=== PATIENT | female | born 1960 | race Caucasian/White ===

== ENCOUNTER 2017-12-19 10:33 | Inpatient (IN) | payer MEDICAID, OTHER ==
[2017-12-19 10:39] VITALS: BMI 24.7
--- NOTE | 2017-12-19 11:05 | C.PDOC ---
Time Seen by Provider: 12/19/17 11:01 Chief Complaint (Nursing): Chest Pain Past Medical History Vital Signs: Last Vital Signs Temp 97.8 F 12/19/17 10:39 Pulse 226 H 12/19/17 10:57 Resp 11 L 12/19/17 10:57 BP 82/40 L 12/19/17 10:57 Pulse Ox 100 12/19/17 10:57 - Medical History PMH: HTN, Migraine Family History: States: Unknown Family Hx - Social History Hx Tobacco Use: No Hx Alcohol Use: No Hx Substance Use: No - Immunization History Hx Tetanus Toxoid Vaccination: No Hx Influenza Vaccination: No Hx Pneumococcal Vaccination: No ED Course And Treatment O2 Sat by Pulse Oximetry: 100 Disposition - Disposition
[2017-12-19 11:06] LABS: BASO # 0.1 K/uL (0.0-0.2); BASO % 0.5 % (0.0-2.0); EOS # 0.1 K/uL (0.0-0.7); EOS % 0.9 % (0.0-4.0); HEMOGLOBIN 14.1 g/dL (11.0-16.0); LYMPH # 5.7 K/uL (1.0-4.3); LYMPH % 51.4 % (20.0-40.0); MEAN CELL VOLUME 85.8 fL (81.0-99.0); MEAN CORPUSCULAR HEMOGLOBIN 29.2 pg (27.0-31.0); MEAN CORPUSCULAR HGB CONC 34.1 g/dL (33.0-37.0); MEAN PLATELET VOLUME 8.1 fL (7.2-11.7); MONO # 0.7 K/uL (0.0-0.8); MONO % 6.7 % (0.0-10.0); NEUT # 4.5 K/uL (1.8-7.0); NEUT % 40.5 % (50.0-75.0); RBC 4.83 Mil/uL (3.80-5.20); WHITE BLOOD COUNT 11.2 K/uL (4.8-10.8)
[2017-12-19 11:19] LABS: INR 1.1; PROTHROMBIN TIME 11.6 SECONDS (9.7-12.2)
[2017-12-19 11:21] LABS: ALB/GLOB RATIO 1.3 (1.0-2.1); ALBUMIN 4.3 g/dL (3.5-5.0); ALT/SGPT 33 U/L (9-52); AST/SGOT 27 U/L (14-36); BLOOD UREA NITROGEN 12 mg/dL (7-17); CALCIUM 9.2 mg/dl (8.6-10.4); GFR AFRICAN-AMERICAN > 60; GFR NON-AFRICAN AMERICAN > 60
--- NOTE | 2017-12-19 11:58 | C.PDOC ---
History Of Present Illness 57 y/o F c PMHx HTN p/w chest pain, palpitations, and shortness of breath from just prior to arrival. Patient was in [facility] when symptoms began. Denies previous episodes. Denies fever, chills, vomiting, injury. Full HPI/ROS unobtainable due to acuity of patient's condition. Time Seen by Provider: 12/19/17 11:01 Chief Complaint (Nursing): Chest Pain Past Medical History Vital Signs: Last Vital Signs Temp 97.8 F 12/19/17 10:39 Pulse 67 12/19/17 11:22 Resp 14 12/19/17 11:22 BP 93/68 L 12/19/17 11:22 Pulse Ox 100 12/19/17 11:22 - Medical History PMH: HTN, Migraine Family History: States: Unknown Family Hx - Social History Hx Tobacco Use: No Hx Alcohol Use: No Hx Substance Use: No - Immunization History Hx Tetanus Toxoid Vaccination: No Hx Influenza Vaccination: No Hx Pneumococcal Vaccination: No Review Of Systems Except As Marked, All Systems Reviewed And Found Negative. Constitutional: Negative for: Fever Gastrointestinal: Negative for: Vomiting Physical Exam - Physical Exam Additional Physical Exam Comments: Gen: Appears anxious Head: NC/AT Eyes: PERRL ENT: MMM Neck: Supple Chest: No tenderness CV: Tachycardic Lungs: CTA b/l Abd: Soft, NT Back: No CVA tenderness Extremities: No edema Skin: Diaphoretic Neuro: Alert, oriented x 3 ED Course And Treatment - Laboratory Results Result Diagrams: 12/19/17 11:00 12/19/17 11:00 O2 Sat by Pulse Oximetry: 100 Critical Care Time - Critical Care Note Total Time (in mins): 60 Comments: Patient required my immediate attention upon arrival due to critical nature of condition, my constant presence at bedside, multiple specialist consultations, and complex decision making. Documented critical care: time excludes all time spent performing seperately billable procedures. Medical Decision Making Medical Decision Making: Initial EKG shows Rate 240, RBBB morphology but with narrow R waves. Adenosine administered with 2 second break, reverted to SVT and patient appeared more diaphoretic, drowsy, BP hypotension. Synchronized cardioversion performed at 120 J, after 200 mcg Fentanyl. Patient immediately converted to sinus rhythm with HR 40s, continues to have RBBB morphology without over ST elevations. HR improved to 60s to 70s, ST depressions laterally, RBBB morphology but with QRS < 120. Patient awake, alert, oriented x 3. Dr. Moreno called, came to see patient at bedside and will have echo performed today, stress test tomorrow. Dr. Carbajal accepts patient to ICU. Dr. Claribel Irizarry accepts patient to his service. Disposition Discussed With : Alexander Moreno Doctor Will See Patient In The: ED - Disposition Disposition: HOSPITALIZED Disposition Time: 12:01 Condition: GUARDED Forms: [facility] (Stateless) - Clinical Impression Clinical Impression: SVT (supraventricular tachycardia)
[2017-12-19] MEDS ORDERED: Sodium Chloride 0.9% 1,000 ML IV ONE (12:20)
--- NOTE | 2017-12-19 13:04 | RAD ---
Date of service: 12/19/2017 PROCEDURE: CHEST RADIOGRAPH, 1 VIEW HISTORY: chest pain COMPARISON: Frontal chest radiograph 12/31/2010. FINDINGS: LUNGS: No acute airspace disease bilaterally. PLEURA: No pneumothorax or pleural fluid seen. CARDIOVASCULAR: Stable cardiomediastinal silhouette. External cardiac pacer identified. OSSEOUS STRUCTURES: No significant abnormalities. VISUALIZED UPPER ABDOMEN: Normal. OTHER FINDINGS: None. IMPRESSION: No definite interval acute cardiopulmonary disease appreciated. External pacer identified.
[2017-12-19 14:07] LABS: ABG ALLEN TEST POS; ARTERIAL BLOOD GAS O2 SAT 100.3 % (95-98); ARTERIAL BLOOD GAS PCO2 43 mm/Hg (35-45); ARTERIAL BLOOD GAS PO2 108 mm/Hg (80-100); ARTERIAL BLOOD GAS TCO2 22.5 mmol/L (22-28)
--- NOTE | 2017-12-19 14:55 | CP.PCM.CON ---
<Betty Villanueva P - Last Filed: 12/19/17 19:05> History of Present Illness - History of Present Illness History of Present Illness: PGY-1 critical care consult note. 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 Patient presented to ED for chest pain, palpitations and shortness of breath that began while at [facility]. Patient noted to be in SVT in ED refractory to adenosine. Synchronized cardioversion was performed at 120 J after which patient converted to sinus rhythm. ICU consulted for cardiovascular monitoring. Patient denies current chest pain, shortness of breath, nausea, vomiting, abdominal pain, diarrhea, dizziness, focal weakness. PMD: Dr. Mitra Johnson PMHx: HTN, CVA (1997) PSHx: none Meds: Losartan/HCTZ 50/12.5 Allergies: NKDA Social: denies drugs, tobacco, alcohol. Family history: mother: HTN, hypercholesterolemia, father-, cancer. siblings: HTN, hypercholesterolemia. Proxy: Son, Matias Scanlon [phone] code status: Full code Review of Systems - Review of Systems All systems: reviewed and no additional remarkable complaints except (as per HPI ) Past Patient History - Past Social History Smoking Status: Never Smoked - CARDIAC Hx Hypertension: Yes - NEUROLOGICAL Hx Migraine: Yes - MUSCULOSKELETAL/RHEUMATOLOGICAL Hx Falls: No - PSYCHIATRIC Hx Substance Use: No - SURGICAL HISTORY Hx Surgeries: No Meds Allergies/Adverse Reactions: Allergies Allergy/AdvReac Type Severity Reaction Status Date / Time No Known Allergies Allergy Verified 12/19/17 10:38 - Medications Medications: Current Medications Aspirin (Aspirin Chewable) 81 mg PO DAILY [facility] Last Admin: 12/19/17 14:26 Dose: 81 mg Famotidine (Pepcid) 20 mg PO DAILY [facility] Heparin Sodium (Porcine) (Heparin) 5,000 units SC Q8 [facility] Last Admin: 12/19/17 13:12 Dose: 5,000 units Pneumococcal Polyvalent Vaccine (Pneumovax 23 Vaccine) 0.5 ml IM .ONCE ONE Stop: 12/22/17 10:01 Physical Exam - Head Exam Head Exam: ATRAUMATIC, NORMOCEPHALIC - Eye Exam Eye Exam: EOMI, PERRL - ENT Exam ENT Exam: Mucous Membranes Moist - Neck Exam Neck exam: Positive for: Full Rom - Respiratory Exam Respiratory Exam: Clear to Auscultation Bilateral. absent: Rales, Rhonchi, Wheezes - Cardiovascular Exam Cardiovascular Exam: REGULAR RHYTHM, +S1, +S2 - GI/Abdominal Exam GI & Abdominal Exam: Normal Bowel Sounds, Soft. absent: Tenderness - Extremities Exam Extremities exam: Positive for: normal inspection. Negative for: calf tenderness, pedal edema - Neurological Exam Neurological exam: Alert, CN II-XII Intact (L sided facial droop, chronic. otherwise normal), Oriented x3 - Psychiatric Exam Psychiatric exam: Normal Affect, Normal Mood - Skin Skin Exam: Dry, Normal Color, Warm Results - Vital Signs Recent Vital Signs: Last Vital Signs Temp 97.8 F 12/19/17 10:39 Pulse 74 12/19/17 11:30 Resp 14 12/19/17 11:30 BP 101/57 L 12/19/17 11:30 Pulse Ox 100 12/19/17 12:58 - Labs Result Diagrams: 12/19/17 11:00 12/19/17 11:00 Labs: Laboratory Results - last 24 hr 12/19/17 12/19/17 12/19/17 10:45 11:00 11:00 WBC 11.2 H RBC 4.83 Hgb 14.1 Hct 41.4 MCV 85.8 MCH 29.2 MCHC 34.1 RDW 13.0 Plt Count 348 MPV 8.1 Neut % (Auto) 40.5 L Lymph % (Auto) 51.4 H [place] % (Auto) 6.7 Eos % (Auto) 0.9 Baso % (Auto) 0.5 Neut # (Auto) 4.5 Lymph # (Auto) 5.7 H [place] # (Auto) 0.7 Eos # (Auto) 0.1 Baso # (Auto) 0.1 PT 11.6 INR 1.1 APTT 36 H D-Dimer, Quantitative Puncture Site pCO2 pO2 HCO3 ABG pH ABG Total CO2 ABG O2 Saturation ABG Base Excess Seferino Test ABG Potassium A-a O2 Difference Respiratory Index Glucose Lactate Liter Flow FiO2 Sodium Potassium Chloride Carbon Dioxide Anion Gap BUN Creatinine Est GFR ( Amer) Est GFR (Non-Af Amer) Random Glucose Hemoglobin A1c Calcium Total Bilirubin AST ALT Alkaline Phosphatase Troponin I Total Protein Albumin Globulin Albumin/Globulin Ratio Triglycerides Cholesterol LDL Cholesterol Direct HDL Cholesterol Free T4 TSH 3rd Generation Arterial Blood Potassium Blood Type O POSITIVE Antibody Screen Negative 12/19/17 12/19/17 12/19/17 11:00 12:24 12:24 WBC RBC Hgb Hct MCV MCH MCHC RDW Plt Count MPV Neut % (Auto) Lymph % (Auto) [place] % (Auto) Eos % (Auto) Baso % (Auto) Neut # (Auto) Lymph # (Auto) [place] # (Auto) Eos # (Auto) Baso # (Auto) PT INR APTT D-Dimer, Quantitative Puncture Site pCO2 pO2 HCO3 ABG pH ABG Total CO2 ABG O2 Saturation ABG Base Excess Seferino Test ABG Potassium A-a O2 Difference Respiratory Index Glucose Lactate Liter Flow FiO2 Sodium 144 Potassium 3.8 Chloride 108 H Carbon Dioxide 19 L Anion Gap 21 H BUN 12 Creatinine 0.7 Est GFR ( Amer) > 60 Est GFR (Non-Af Amer) > 60 Random Glucose 172 H Hemoglobin A1c 5.5 Calcium 9.2 Total Bilirubin 0.4 AST 27 ALT 33 Alkaline Phosphatase 141 H Troponin I < 0.0120 Total Protein 7.7 Albumin 4.3 Globulin 3.4 Albumin/Globulin Ratio 1.3 Triglycerides Cholesterol LDL Cholesterol Direct HDL Cholesterol Free T4 1.41 TSH 3rd Generation Arterial Blood Potassium Blood Type Antibody Screen 12/19/17 12/19/17 12/19/17 12:24 12:55 14:03 WBC RBC Hgb Hct MCV MCH MCHC RDW Plt Count MPV Neut % (Auto) Lymph % (Auto) [place] % (Auto) Eos % (Auto) Baso % (Auto) Neut # (Auto) Lymph # (Auto) [place] # (Auto) Eos # (Auto) Baso # (Auto) PT INR APTT D-Dimer, Quantitative < 200 Puncture Site Rra pCO2 43 pO2 108 H HCO3 21.0 ABG pH 7.30 L ABG Total CO2 22.5 ABG O2 Saturation 100.3 H ABG Base Excess -5.1 L Seferino Test Pos ABG Potassium 3.9 A-a O2 Difference 38.0 Respiratory Index 0.4 Glucose 134 H Lactate 2.0 Liter Flow 2.0 FiO2 28.0 Sodium 140.0 Potassium Chloride 112.0 H Carbon Dioxide Anion Gap BUN Creatinine Est GFR ( Amer) Est GFR (Non-Af Amer) Random Glucose Hemoglobin A1c Calcium Total Bilirubin AST ALT Alkaline Phosphatase Troponin I Total Protein Albumin Globulin Albumin/Globulin Ratio Triglycerides 164 H Cholesterol 184 LDL Cholesterol Direct 106 HDL Cholesterol 30 Free T4 TSH 3rd Generation 0.63 Arterial Blood Potassium 3.9 Blood Type Antibody Screen Assessment & Plan - Assessment and Plan (Free Text) Plan: Patient is a 57 year old female with PMHx of hypertension and 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 Patient presented to ED for chest pain, palpitations and shortness of breath that began while at [facility]. Patient noted to be in SVT in ED refractory to adenosine. Synchronized cardioversion was performed at 120 J after which patient converted to sinus rhythm. ICU consulted for cardiovascular monitoring. Neurological: Patient AAOx3 at baseline chronic L facial droop Cardiovascular: EKG: Initial EKG shows Rate 240, RBBB morphology but with narrow R waves; following cardioversion: NSR @61, R axis deviation, incomplete RBBB, prolonged Qtc at 497 Troponin: elevated likely secondary to synchronized cardioversion Echo f/u Start home med of Hyzaar ASA 81mg PO daily Dr. Moreno, cardiology, consulted. Help appreciated. Respiratory: CXR: no definite interval acute cardiopulmonary disease appreciated. External pacer identified. (see full report) Renal: BUN/Cr stable continue to monitor Infectious disease: WBC: 11.2 continue to monitor Hematology: H/H stable Gastrointestinal: Regular diet Endocrine: maintain euglycemia Prophylaxis: Heparin 5000u SC Q8H, Pepcid 20mg PO daily Case discussed with Dr. Carbajal. <Adolph Carbajal - Last Filed: 12/20/17 16:37> Meds - Medications Medications: Current Medications Aspirin (Aspirin Chewable) 81 mg PO DAILY [facility] Last Admin: 12/20/17 10:28 Dose: 81 mg Famotidine (Pepcid) 20 mg PO DAILY [facility] Last Admin: 12/20/17 10:29 Dose: 20 mg Heparin Sodium (Porcine) (Heparin) 5,000 units SC Q8 [facility] Last Admin: 12/20/17 13:50 Dose: 5,000 units Hydrochlorothiazide (Microzide) 12.5 mg PO DAILY [facility] Last Admin: 12/20/17 10:29 Dose: 12.5 mg Losartan Potassium (Cozaar) 50 mg PO DAILY [facility] Last Admin: 12/20/17 10:28 Dose: 50 mg Metoprolol Tartrate (Lopressor) 50 mg PO BIDCC [facility] Last Admin: 12/20/17 10:30 Dose: 50 mg Pneumococcal Polyvalent Vaccine (Pneumovax 23 Vaccine) 0.5 ml IM .ONCE ONE Stop: 12/22/17 10:01 Results - Vital Signs Recent Vital Signs: Last Vital Signs Temp 98.3 F 12/20/17 16:00 Pulse 61 12/20/17 16:00 Resp 16 12/20/17 16:00 BP 117/66 12/20/17 15:33 Pulse Ox 99 12/20/17 16:00 - Labs Result Diagrams: 12/20/17 06:25 12/20/17 06:25 Labs: Laboratory Results - last 24 hr 12/19/17 12/20/17 12/20/17 17:24 06:25 06:25 WBC 7.6 RBC 4.31 Hgb 12.7 Hct 37.0 MCV 85.8 MCH 29.5 MCHC 34.4 RDW 13.6 Plt Count 250 MPV 8.4 Neut % (Auto) 62.0 Lymph % (Auto) 29.5 [place] % (Auto) 7.4 Eos % (Auto) 0.8 Baso % (Auto) 0.3 Neut # (Auto) 4.7 Lymph # (Auto) 2.2 [place] # (Auto) 0.6 Eos # (Auto) 0.1 Baso # (Auto) 0.0 Sodium 140 Potassium 4.0 Chloride 108 H Carbon Dioxide 25 Anion Gap 11 BUN 15 Creatinine 0.7 Est GFR ( Amer) > 60 Est GFR (Non-Af Amer) > 60 Random Glucose 93 Calcium 8.7 Phosphorus 3.3 Magnesium 2.0 Total Bilirubin 0.5 AST 53 H D ALT 38 Alkaline Phosphatase 98 Total Creatine Kinase 145 H 154 H CK-MB (Mass) 9.62 H 10.9 H Troponin I 5.2600 H* 2.3400 H* Total Protein 6.8 Albumin 3.8 Globulin 3.0 Albumin/Globulin Ratio 1.3 Attending/Attestation - Attestation I have personally seen and examined this patient.: Yes I have fully participated in the care of the patient.: Yes I have reviewed all pertinent clinical information: Yes Notes (Text): 12/20/17 16:37 patient seen and examined status post cardioversion for supraventricular tachycardia Etiology unknown Echocardiogram Thyroid function tests Cardiology consult
--- NOTE | 2017-12-19 15:13 | CARD ---
APPROVED REPORT Date of service: 12/19/2017 EKG Measurement Heart [id number] <Conclusion> Normal sinus rhythm Right axis deviation Incomplete right bundle branch block Possible Right ventricular hypertrophy Lateral ST depression, consider subendocardial injury Prolonged QT Abnormal ECG
--- NOTE | 2017-12-19 15:14 | CARD ---
APPROVED REPORT Date of service: 12/19/2017 EKG Measurement Heart [id number] [place] 118P1 [id number] <Conclusion> Sinus bradycardia with frequent premature ventricular complexes Right axis deviation Incomplete right bundle branch block Possible Right ventricular hypertrophy Lateral ST depression, consider subendocardial injury Abnormal ECG
--- NOTE | 2017-12-19 15:15 | CARD ---
APPROVED REPORT Date of service: 12/19/2017 EKG Measurement Heart [id number] <Conclusion> Junctional bradycardia Right bundle branch block Abnormal ECG
--- NOTE | 2017-12-19 15:17 | CARD ---
APPROVED REPORT Date of service: 12/19/2017 EKG Measurement Heart [id number] <Conclusion> SVT Right bundle branch block Lateral ischemic ST changes Abnormal ECG
[2017-12-19 15:50] LABS: BARBITURATES, UR NEGATIVE (NEGATIVE); BENZODIAZEPINES, UR NEGATIVE (NEGATIVE); OPIATES, UR NEGATIVE (NEGATIVE); PHENCYCLIDINE, UR NEGATIVE (NEGATIVE)
[2017-12-19 17:59] LABS: CK-MB 9.62 ng/mL (0.0-3.38)
[2017-12-19 18:01] LABS: TROPONIN I 5.26 ng/mL (0.00-0.120)
--- NOTE | 2017-12-19 20:46 | CP.PCM.HP ---
History of Present Illness - History of Present Illness History of Present Illness: 57-year-old female with history of hypertension history of chest pain and palpitation while doing exercise was brought in with a heart rate of more than 240 received adenosine call the cardiology when patient was admitted Present on Admission - Present on Admission Any Indicators Present on Admission: No Past Patient History - Past Medical History & Family History Past Medical History?: Yes - Past Social History Smoking Status: Never Smoked - CARDIAC Hx Hypertension: Yes - PULMONARY Hx Respiratory Disorders: No - NEUROLOGICAL Hx Migraine: Yes - HEENT Hx HEENT Problems: No - RENAL Hx Chronic Kidney Disease: No - ENDOCRINE/METABOLIC Hx Endocrine Disorders: No - HEMATOLOGICAL/ONCOLOGICAL Hx Blood Disorders: No - INTEGUMENTARY Hx Dermatological Problems: No - MUSCULOSKELETAL/RHEUMATOLOGICAL Hx Falls: No - GASTROINTESTINAL Hx Gastrointestinal Disorders: No - GENITOURINARY/GYNECOLOGICAL Hx Genitourinary Disorders: No - PSYCHIATRIC Hx Substance Use: No - SURGICAL HISTORY Hx Surgeries: No - ANESTHESIA Hx Anesthesia: No Hx Anesthesia Reactions: No Hx Malignant Hyperthermia: No Has any member of the family had a problem w/ anesthesia?: No Meds Allergies/Adverse Reactions: Allergies Allergy/AdvReac Type Severity Reaction Status Date / Time No Known Allergies Allergy Verified 12/19/17 10:38 Physical Exam - Constitutional Appears: Well - Head Exam Head Exam: ATRAUMATIC, NORMAL INSPECTION, NORMOCEPHALIC - Eye Exam Eye Exam: EOMI, Normal appearance, PERRL Pupil Exam: NORMAL ACCOMODATION, PERRL - ENT Exam ENT Exam: Mucous Membranes Moist, Normal Exam - Neck Exam Neck exam: Positive for: Normal Inspection - Respiratory Exam Respiratory Exam: Decreased Breath Sounds - Cardiovascular Exam Cardiovascular Exam: REGULAR RHYTHM, +S1, +S2 - GI/Abdominal Exam GI & Abdominal Exam: Diminished Bowel Sounds, Soft - Rectal Exam Rectal Exam: Deferred Results - Vital Signs Recent Vital Signs: Last Vital Signs Temp 98 F 12/19/17 16:00 Pulse 75 12/19/17 19:10 Resp 16 12/19/17 19:10 BP 132/77 12/19/17 18:33 Pulse Ox 100 12/19/17 16:00 - Labs Result Diagrams: 12/21/17 06:21 12/21/17 06:21 Labs: Laboratory Results - last 24 hr 12/19/17 12/19/17 12/19/17 10:45 11:00 11:00 WBC 11.2 H RBC 4.83 Hgb 14.1 Hct 41.4 MCV 85.8 MCH 29.2 MCHC 34.1 RDW 13.0 Plt Count 348 MPV 8.1 Neut % (Auto) 40.5 L Lymph % (Auto) 51.4 H [place] % (Auto) 6.7 Eos % (Auto) 0.9 Baso % (Auto) 0.5 Neut # (Auto) 4.5 Lymph # (Auto) 5.7 H [place] # (Auto) 0.7 Eos # (Auto) 0.1 Baso # (Auto) 0.1 PT 11.6 INR 1.1 APTT 36 H D-Dimer, Quantitative Puncture Site pCO2 pO2 HCO3 ABG pH ABG Total CO2 ABG O2 Saturation ABG Base Excess Seferino Test ABG Potassium A-a O2 Difference Respiratory Index Glucose Lactate Liter Flow FiO2 Sodium Potassium Chloride Carbon Dioxide Anion Gap BUN Creatinine Est GFR ( Amer) Est GFR (Non-Af Amer) Random Glucose Hemoglobin A1c Calcium Total Bilirubin AST ALT Alkaline Phosphatase Total Creatine Kinase CK-MB (Mass) Troponin I Total Protein Albumin Globulin Albumin/Globulin Ratio Triglycerides Cholesterol LDL Cholesterol Direct HDL Cholesterol Free T4 TSH 3rd Generation Arterial Blood Potassium Urine Opiates Screen Urine Methadone Screen Ur Barbiturates Screen Ur Phencyclidine Scrn Ur Amphetamines Screen U Benzodiazepines Scrn U Oth Cocaine Metabols U Cannabinoids Screen Blood Type O POSITIVE Antibody Screen Negative 12/19/17 12/19/17 12/19/17 11:00 12:24 12:24 WBC RBC Hgb Hct MCV MCH MCHC RDW Plt Count MPV Neut % (Auto) Lymph % (Auto) [place] % (Auto) Eos % (Auto) Baso % (Auto) Neut # (Auto) Lymph # (Auto) [place] # (Auto) Eos # (Auto) Baso # (Auto) PT INR APTT D-Dimer, Quantitative Puncture Site pCO2 pO2 HCO3 ABG pH ABG Total CO2 ABG O2 Saturation ABG Base Excess Seferino Test ABG Potassium A-a O2 Difference Respiratory Index Glucose Lactate Liter Flow FiO2 Sodium 144 Potassium 3.8 Chloride 108 H Carbon Dioxide 19 L Anion Gap 21 H BUN 12 Creatinine 0.7 Est GFR ( Amer) > 60 Est GFR (Non-Af Amer) > 60 Random Glucose 172 H Hemoglobin A1c 5.5 Calcium 9.2 Total Bilirubin 0.4 AST 27 ALT 33 Alkaline Phosphatase 141 H Total Creatine Kinase CK-MB (Mass) Troponin I < 0.0120 Total Protein 7.7 Albumin 4.3 Globulin 3.4 Albumin/Globulin Ratio 1.3 Triglycerides Cholesterol LDL Cholesterol Direct HDL Cholesterol Free T4 1.41 TSH 3rd Generation Arterial Blood Potassium Urine Opiates Screen Urine Methadone Screen Ur Barbiturates Screen Ur Phencyclidine Scrn Ur Amphetamines Screen U Benzodiazepines Scrn U Oth Cocaine Metabols U Cannabinoids Screen Blood Type Antibody Screen 12/19/17 12/19/17 12/19/17 12:24 12:55 14:03 WBC RBC Hgb Hct MCV MCH MCHC RDW Plt Count MPV Neut % (Auto) Lymph % (Auto) [place] % (Auto) Eos % (Auto) Baso % (Auto) Neut # (Auto) Lymph # (Auto) [place] # (Auto) Eos # (Auto) Baso # (Auto) PT INR APTT D-Dimer, Quantitative < 200 Puncture Site Rra pCO2 43 pO2 108 H HCO3 21.0 ABG pH 7.30 L ABG Total CO2 22.5 ABG O2 Saturation 100.3 H ABG Base Excess -5.1 L Seferino Test Pos ABG Potassium 3.9 A-a O2 Difference 38.0 Respiratory Index 0.4 Glucose 134 H Lactate 2.0 Liter Flow 2.0 FiO2 28.0 Sodium 140.0 Potassium Chloride 112.0 H Carbon Dioxide Anion Gap BUN Creatinine Est GFR ( Amer) Est GFR (Non-Af Amer) Random Glucose Hemoglobin A1c Calcium Total Bilirubin AST ALT Alkaline Phosphatase Total Creatine Kinase CK-MB (Mass) Troponin I Total Protein Albumin Globulin Albumin/Globulin Ratio Triglycerides 164 H Cholesterol 184 LDL Cholesterol Direct 106 HDL Cholesterol 30 Free T4 TSH 3rd Generation 0.63 Arterial Blood Potassium 3.9 Urine Opiates Screen Urine Methadone Screen Ur Barbiturates Screen Ur Phencyclidine Scrn Ur Amphetamines Screen U Benzodiazepines Scrn U Oth Cocaine Metabols U Cannabinoids Screen Blood Type Antibody Screen 12/19/17 12/19/17 15:01 17:24 WBC RBC Hgb Hct MCV MCH MCHC RDW Plt Count MPV Neut % (Auto) Lymph % (Auto) [place] % (Auto) Eos % (Auto) Baso % (Auto) Neut # (Auto) Lymph # (Auto) [place] # (Auto) Eos # (Auto) Baso # (Auto) PT INR APTT D-Dimer, Quantitative Puncture Site pCO2 pO2 HCO3 ABG pH ABG Total CO2 ABG O2 Saturation ABG Base Excess Seferino Test ABG Potassium A-a O2 Difference Respiratory Index Glucose Lactate Liter Flow FiO2 Sodium Potassium Chloride Carbon Dioxide Anion Gap BUN Creatinine Est GFR ( Amer) Est GFR (Non-Af Amer) Random Glucose Hemoglobin A1c Calcium Total Bilirubin AST ALT Alkaline Phosphatase Total Creatine Kinase 145 H CK-MB (Mass) 9.62 H Troponin I 5.2600 H* Total Protein Albumin Globulin Albumin/Globulin Ratio Triglycerides Cholesterol LDL Cholesterol Direct HDL Cholesterol Free T4 TSH 3rd Generation Arterial Blood Potassium Urine Opiates Screen Negative Urine Methadone Screen Negative Ur Barbiturates Screen Negative Ur Phencyclidine Scrn Negative Ur Amphetamines Screen Negative U Benzodiazepines Scrn Negative U Oth Cocaine Metabols Negative U Cannabinoids Screen Negative Blood Type Antibody Screen Assessment & Plan (1) HTN (hypertension) Status: Acute (2) SVT (supraventricular tachycardia) Status: Acute (3) Troponin I above reference range Status: Acute (4) Migraine Status: Acute - Assessment and Plan (Free Text) Plan: plan cardiology consult ICU laboratory CBC CMP seen EKG echocardiogram thyroid function test
--- NOTE | 2017-12-20 01:07 | CP.PCM.CON ---
History of Present Illness - History of Present Illness History of Present Illness: Consultation for evaluation of SVT post selena workout HPI: 57 year old female brought in after having an episode of diaphoresis while she was doing selena and was noted to be in SVT which initially broke with adenosine but reverted back to symptomatic SVT requiring cardioversion with 120J current. She is fairly active at baseline. Denied any CP, was SOB at time of SVT. Review of Systems - Review of Systems Systems not reviewed;Unavailable: Acuity of Condition - Constitutional Constitutional: As Per HPI - EENT Eyes: As Per HPI Ears: As Per HPI Nose/Mouth/Throat: As Per HPI - Breasts Breasts: As Per HPI - Cardiovascular Cardiovascular: As Per HPI - Respiratory Respiratory: As Per HPI - Gastrointestinal Gastrointestinal: As Per HPI - Genitourinary Genitourinary: As Per HPI - Reproductive: Female Reproductive:Female: As Per HPI - Menstruation Menstruation: As Per HPI - Musculoskeletal Musculoskeletal: As Per HPI - Integumentary Integumentary: As Per HPI - Neurological Neurological: As Per HPI - Psychiatric Psychiatric: As Per HPI - Endocrine Endocrine: As Per HPI - Hematologic/Lymphatic Hematologic: As Per HPI Past Patient History - Past Medical History & Family History Past Medical History?: Yes - Past Social History Smoking Status: Never Smoked - CARDIAC Hx Hypertension: Yes - PULMONARY Hx Respiratory Disorders: No - NEUROLOGICAL Hx Migraine: Yes - HEENT Hx HEENT Problems: No - RENAL Hx Chronic Kidney Disease: No - ENDOCRINE/METABOLIC Hx Endocrine Disorders: No - HEMATOLOGICAL/ONCOLOGICAL Hx Blood Disorders: No - INTEGUMENTARY Hx Dermatological Problems: No - MUSCULOSKELETAL/RHEUMATOLOGICAL Hx Falls: No - GASTROINTESTINAL Hx Gastrointestinal Disorders: No - GENITOURINARY/GYNECOLOGICAL Hx Genitourinary Disorders: No - PSYCHIATRIC Hx Substance Use: No - SURGICAL HISTORY Hx Surgeries: No - ANESTHESIA Hx Anesthesia: No Hx Anesthesia Reactions: No Hx Malignant Hyperthermia: No Has any member of the family had a problem w/ anesthesia?: No Meds Allergies/Adverse Reactions: Allergies Allergy/AdvReac Type Severity Reaction Status Date / Time No Known Allergies Allergy Verified 12/19/17 10:38 - Medications Medications: Current Medications Aspirin (Aspirin Chewable) 81 mg PO DAILY [facility] Last Admin: 12/19/17 14:26 Dose: 81 mg Famotidine (Pepcid) 20 mg PO DAILY [facility] Heparin Sodium (Porcine) (Heparin) 5,000 units SC Q8 [facility] Last Admin: 12/19/17 22:30 Dose: 5,000 units Hydrochlorothiazide (Microzide) 12.5 mg PO DAILY [facility] Losartan Potassium (Cozaar) 50 mg PO DAILY [facility] Pneumococcal Polyvalent Vaccine (Pneumovax 23 Vaccine) 0.5 ml IM .ONCE ONE Stop: 12/22/17 10:01 Physical Exam - Constitutional Appears: Well - Head Exam Head Exam: ATRAUMATIC, NORMAL INSPECTION, NORMOCEPHALIC - Eye Exam Eye Exam: EOMI, Normal appearance, PERRL Pupil Exam: NORMAL ACCOMODATION, PERRL - ENT Exam ENT Exam: Mucous Membranes Moist, Normal Exam - Neck Exam Neck exam: Positive for: Normal Inspection - Respiratory Exam Respiratory Exam: Clear to Auscultation Bilateral, NORMAL BREATHING PATTERN - Cardiovascular Exam Cardiovascular Exam: REGULAR RHYTHM, RRR, Systolic Murmur - GI/Abdominal Exam GI & Abdominal Exam: Normal Bowel Sounds, Soft. absent: Tenderness - Extremities Exam Extremities exam: Positive for: normal inspection - Back Exam Back exam: NORMAL INSPECTION - Neurological Exam Neurological exam: Alert, CN II-XII Intact, Normal Gait, Oriented x3, Reflexes Normal - Psychiatric Exam Psychiatric exam: Normal Affect, Normal Mood - Skin Skin Exam: Dry, Intact, Normal Color, Warm Results - Vital Signs Recent Vital Signs: Last Vital Signs Temp 98 F 12/19/17 16:00 Pulse 75 12/19/17 19:10 Resp 16 12/19/17 19:10 BP 132/77 12/19/17 18:33 Pulse Ox 100 12/19/17 16:00 - Labs Result Diagrams: 12/19/17 11:00 12/19/17 11:00 Labs: Laboratory Results - last 24 hr 12/19/17 12/19/17 12/19/17 10:45 11:00 11:00 WBC 11.2 H RBC 4.83 Hgb 14.1 Hct 41.4 MCV 85.8 MCH 29.2 MCHC 34.1 RDW 13.0 Plt Count 348 MPV 8.1 Neut % (Auto) 40.5 L Lymph % (Auto) 51.4 H [place] % (Auto) 6.7 Eos % (Auto) 0.9 Baso % (Auto) 0.5 Neut # (Auto) 4.5 Lymph # (Auto) 5.7 H [place] # (Auto) 0.7 Eos # (Auto) 0.1 Baso # (Auto) 0.1 PT 11.6 INR 1.1 APTT 36 H D-Dimer, Quantitative Puncture Site pCO2 pO2 HCO3 ABG pH ABG Total CO2 ABG O2 Saturation ABG Base Excess Seferino Test ABG Potassium A-a O2 Difference Respiratory Index Glucose Lactate Liter Flow FiO2 Sodium Potassium Chloride Carbon Dioxide Anion Gap BUN Creatinine Est GFR ( Amer) Est GFR (Non-Af Amer) Random Glucose Hemoglobin A1c Calcium Total Bilirubin AST ALT Alkaline Phosphatase Total Creatine Kinase CK-MB (Mass) Troponin I Total Protein Albumin Globulin Albumin/Globulin Ratio Triglycerides Cholesterol LDL Cholesterol Direct HDL Cholesterol Free T4 TSH 3rd Generation Arterial Blood Potassium Urine Opiates Screen Urine Methadone Screen Ur Barbiturates Screen Ur Phencyclidine Scrn Ur Amphetamines Screen U Benzodiazepines Scrn U Oth Cocaine Metabols U Cannabinoids Screen Blood Type O POSITIVE Antibody Screen Negative 12/19/17 12/19/17 12/19/17 11:00 12:24 12:24 WBC RBC Hgb Hct MCV MCH MCHC RDW Plt Count MPV Neut % (Auto) Lymph % (Auto) [place] % (Auto) Eos % (Auto) Baso % (Auto) Neut # (Auto) Lymph # (Auto) [place] # (Auto) Eos # (Auto) Baso # (Auto) PT INR APTT D-Dimer, Quantitative Puncture Site pCO2 pO2 HCO3 ABG pH ABG Total CO2 ABG O2 Saturation ABG Base Excess Seferino Test ABG Potassium A-a O2 Difference Respiratory Index Glucose Lactate Liter Flow FiO2 Sodium 144 Potassium 3.8 Chloride 108 H Carbon Dioxide 19 L Anion Gap 21 H BUN 12 Creatinine 0.7 Est GFR ( Amer) > 60 Est GFR (Non-Af Amer) > 60 Random Glucose 172 H Hemoglobin A1c 5.5 Calcium 9.2 Total Bilirubin 0.4 AST 27 ALT 33 Alkaline Phosphatase 141 H Total Creatine Kinase CK-MB (Mass) Troponin I < 0.0120 Total Protein 7.7 Albumin 4.3 Globulin 3.4 Albumin/Globulin Ratio 1.3 Triglycerides Cholesterol LDL Cholesterol Direct HDL Cholesterol Free T4 1.41 TSH 3rd Generation Arterial Blood Potassium Urine Opiates Screen Urine Methadone Screen Ur Barbiturates Screen Ur Phencyclidine Scrn Ur Amphetamines Screen U Benzodiazepines Scrn U Oth Cocaine Metabols U Cannabinoids Screen Blood Type Antibody Screen 12/19/17 12/19/17 12/19/17 12:24 12:55 14:03 WBC RBC Hgb Hct MCV MCH MCHC RDW Plt Count MPV Neut % (Auto) Lymph % (Auto) [place] % (Auto) Eos % (Auto) Baso % (Auto) Neut # (Auto) Lymph # (Auto) [place] # (Auto) Eos # (Auto) Baso # (Auto) PT INR APTT D-Dimer, Quantitative < 200 Puncture Site Rra pCO2 43 pO2 108 H HCO3 21.0 ABG pH 7.30 L ABG Total CO2 22.5 ABG O2 Saturation 100.3 H ABG Base Excess -5.1 L Seferino Test Pos ABG Potassium 3.9 A-a O2 Difference 38.0 Respiratory Index 0.4 Glucose 134 H Lactate 2.0 Liter Flow 2.0 FiO2 28.0 Sodium 140.0 Potassium Chloride 112.0 H Carbon Dioxide Anion Gap BUN Creatinine Est GFR ( Amer) Est GFR (Non-Af Amer) Random Glucose Hemoglobin A1c Calcium Total Bilirubin AST ALT Alkaline Phosphatase Total Creatine Kinase CK-MB (Mass) Troponin I Total Protein Albumin Globulin Albumin/Globulin Ratio Triglycerides 164 H Cholesterol 184 LDL Cholesterol Direct 106 HDL Cholesterol 30 Free T4 TSH 3rd Generation 0.63 Arterial Blood Potassium 3.9 Urine Opiates Screen Urine Methadone Screen Ur Barbiturates Screen Ur Phencyclidine Scrn Ur Amphetamines Screen U Benzodiazepines Scrn U Oth Cocaine Metabols U Cannabinoids Screen Blood Type Antibody Screen 12/19/17 12/19/17 15:01 17:24 WBC RBC Hgb Hct MCV MCH MCHC RDW Plt Count MPV Neut % (Auto) Lymph % (Auto) [place] % (Auto) Eos % (Auto) Baso % (Auto) Neut # (Auto) Lymph # (Auto) [place] # (Auto) Eos # (Auto) Baso # (Auto) PT INR APTT D-Dimer, Quantitative Puncture Site pCO2 pO2 HCO3 ABG pH ABG Total CO2 ABG O2 Saturation ABG Base Excess Seferino Test ABG Potassium A-a O2 Difference Respiratory Index Glucose Lactate Liter Flow FiO2 Sodium Potassium Chloride Carbon Dioxide Anion Gap BUN Creatinine Est GFR ( Amer) Est GFR (Non-Af Amer) Random Glucose Hemoglobin A1c Calcium Total Bilirubin AST ALT Alkaline Phosphatase Total Creatine Kinase 145 H CK-MB (Mass) 9.62 H Troponin I 5.2600 H* Total Protein Albumin Globulin Albumin/Globulin Ratio Triglycerides Cholesterol LDL Cholesterol Direct HDL Cholesterol Free T4 TSH 3rd Generation Arterial Blood Potassium Urine Opiates Screen Negative Urine Methadone Screen Negative Ur Barbiturates Screen Negative Ur Phencyclidine Scrn Negative Ur Amphetamines Screen Negative U Benzodiazepines Scrn Negative U Oth Cocaine Metabols Negative U Cannabinoids Screen Negative Blood Type Antibody Screen Assessment & Plan (1) SVT (supraventricular tachycardia) Assessment and Plan: asa bb echo plan for stress test in am npo p mn Status: Acute (2) Troponin I above reference range Assessment and Plan: 2' to cardioversion Status: Acute
[2017-12-20 06:29] LABS: BASO % 0.3 % (0.0-2.0); EOS # 0.1 K/uL (0.0-0.7); EOS % 0.8 % (0.0-4.0); HEMOGLOBIN 12.7 g/dL (11.0-16.0); LYMPH # 2.2 K/uL (1.0-4.3); LYMPH % 29.5 % (20.0-40.0); MEAN CELL VOLUME 85.8 fL (81.0-99.0); MEAN CORPUSCULAR HEMOGLOBIN 29.5 pg (27.0-31.0); MEAN CORPUSCULAR HGB CONC 34.4 g/dL (33.0-37.0); MEAN PLATELET VOLUME 8.4 fL (7.2-11.7); MONO # 0.6 K/uL (0.0-0.8); MONO % 7.4 % (0.0-10.0); NEUT # 4.7 K/uL (1.8-7.0); RBC 4.31 Mil/uL (3.80-5.20); RED CELL DISTRIBUTION WIDTH 13.6 % (11.5-14.5); WHITE BLOOD COUNT 7.6 K/uL (4.8-10.8)
[2017-12-20 07:15] LABS: ALB/GLOB RATIO 1.3 (1.0-2.1); ALBUMIN 3.8 g/dL (3.5-5.0); ALT/SGPT 38 U/L (9-52); AST/SGOT 53 U/L (14-36); BLOOD UREA NITROGEN 15 mg/dL (7-17); CALCIUM 8.7 mg/dl (8.6-10.4); CK-MB 10.9 ng/mL (0.0-3.38); GFR AFRICAN-AMERICAN > 60; GFR NON-AFRICAN AMERICAN > 60
[2017-12-20] MEDS ORDERED: Caffeine Citrated **INJ** 20 MG/ML IV ONE (08:52)
--- NOTE | 2017-12-20 10:22 | CP.PCM.PN ---
Subjective - Date & Time of Evaluation Date of Evaluation: 12/20/17 Time of Evaluation: 10:20 - Subjective Subjective: s/p stress test HR stable Objective - Vital Signs/Intake and Output Vital Signs (last 24 hours): Temp Pulse Resp BP Pulse Ox 98.7 F 101 H 17 103/62 100 12/20/17 08:00 12/20/17 10:10 12/20/17 10:10 12/20/17 10:13 12/20/17 08:00 Intake and Output: 12/20/17 12/20/17 06:59 18:59 Intake Total 120 0 Output Total 750 0 Balance -630 0 - Medications Medications: Current Medications Aspirin (Aspirin Chewable) 81 mg PO DAILY [facility] Last Admin: 12/19/17 14:26 Dose: 81 mg Famotidine (Pepcid) 20 mg PO DAILY [facility] Heparin Sodium (Porcine) (Heparin) 5,000 units SC Q8 [facility] Last Admin: 12/20/17 06:17 Dose: 5,000 units Hydrochlorothiazide (Microzide) 12.5 mg PO DAILY [facility] Losartan Potassium (Cozaar) 50 mg PO DAILY [facility] Pneumococcal Polyvalent Vaccine (Pneumovax 23 Vaccine) 0.5 ml IM .ONCE ONE Stop: 12/22/17 10:01 - Labs Labs: 12/20/17 06:25 12/20/17 06:25 PT 11.6 SECONDS (9.7-12.2) 12/19/17 11:00 INR 1.1 12/19/17 11:00 APTT 36 SECONDS (21-34) H 12/19/17 11:00 - Constitutional Appears: Well - Head Exam Head Exam: ATRAUMATIC, NORMAL INSPECTION, NORMOCEPHALIC - Eye Exam Eye Exam: EOMI, Normal appearance, PERRL Pupil Exam: NORMAL ACCOMODATION, PERRL - ENT Exam ENT Exam: Mucous Membranes Moist, Normal Exam - Neck Exam Neck Exam: Full ROM, Normal Inspection. absent: Lymphadenopathy - Respiratory Exam Respiratory Exam: Clear to Ausculation Bilateral, NORMAL BREATHING PATTERN - Cardiovascular Exam Cardiovascular Exam: REGULAR RHYTHM, +S1, +S2. absent: Murmur - GI/Abdominal Exam GI & Abdominal Exam: Soft, Normal Bowel Sounds. absent: Tenderness - Extremities Exam Extremities Exam: Full ROM, Normal Capillary Refill, Normal Inspection. absent : Joint Swelling, Pedal Edema - Back Exam Back Exam: NORMAL INSPECTION - Neurological Exam Neurological Exam: Alert, Awake, CN II-XII Intact, Normal Gait, Oriented x3 - Psychiatric Exam Psychiatric exam: Normal Affect, Normal Mood - Skin Skin Exam: Dry, Intact, Normal Color, Warm Assessment and Plan (1) SVT (supraventricular tachycardia) Assessment & Plan: bb stress test echo Status: Acute (2) Troponin I above reference range Assessment & Plan: 2' to cardioversion echo telemetry Status: Acute (3) HTN (hypertension) Status: Acute
--- NOTE | 2017-12-20 12:15 | CP.CCUPN ---
<Betty Villanueva P - Last Filed: 12/20/17 13:11> CCU Subjective - Physician Review Events Since Last Encounter (Free Text): PGY-1 critical care progress note. Patient seen and evaluated at bedside. Patient states she feels much better today. Denies chest pain, palpitations, shortness of breath, nausea, vomiting, dizziness. CCU Objective - Vital Signs / Intake & Output Vital Signs (Last 4 hours): Vital Signs Pulse Resp BP Pulse Ox 12/20/17 11:10 78 19 98 12/20/17 11:00 71 21 98 12/20/17 10:50 80 12 99 12/20/17 10:40 95 H 16 99 12/20/17 10:34 101 H 20 139/79 12/20/17 10:30 100 H 20 99 12/20/17 10:20 100 H 23 99 12/20/17 10:13 103/62 12/20/17 10:10 101 H 17 12/20/17 10:09 96 H 12/20/17 08:20 56 L 13 Intake and Output (Last 8hrs): Intake & Output 12/19/17 12/20/17 12/20/17 22:59 06:59 14:59 Intake Total 120 20 20 Output Total 400 350 0 Balance -280 -330 20 Weight 141 lb 136 lb 14.4 oz Intake: Intake, IV Amount 20 20 20 Left Antecubital 10 10 10 Right Antecubital 10 10 10 Oral 100 0 Output: Urine 400 350 0 Urine, Voided 400 350 0 Stool 0 0 0 - Physical Exam Other physical findings (Free Text): - Head Exam Head Exam: ATRAUMATIC, NORMOCEPHALIC - Eye Exam Eye Exam: EOMI, PERRL - ENT Exam ENT Exam: Mucous Membranes Moist - Neck Exam Neck exam: Positive for: Full Rom - Respiratory Exam Respiratory Exam: Clear to Auscultation Bilateral. absent: Rales, Rhonchi, Wheezes - Cardiovascular Exam Cardiovascular Exam: REGULAR RHYTHM, +S1, +S2 - GI/Abdominal Exam GI & Abdominal Exam: Normal Bowel Sounds, Soft. absent: Tenderness - Extremities Exam Extremities exam: Positive for: normal inspection. Negative for: calf tenderness, pedal edema - Neurological Exam Neurological exam: Alert, CN II-XII Intact (L sided facial droop, chronic. otherwise normal), Oriented x3 - Psychiatric Exam Psychiatric exam: Normal Affect, Normal Mood - Skin Skin Exam: Dry, Normal Color, Warm - Medications Active Medications: Active Medications Generic Name Dose Route Start Last Admin Trade Name Ryland PRN Reason Stop Dose Admin Aspirin 81 mg 12/19/17 14:30 12/20/17 10:28 Aspirin Chewable PO 81 mg DAILY MARIA R Administration Famotidine 20 mg 12/20/17 10:00 12/20/17 10:29 Pepcid PO 20 mg DAILY MARIA R Administration Heparin Sodium (Porcine) 5,000 units 12/19/17 14:00 12/20/17 06:17 Heparin SC 5,000 units Q8 MARIA R Administration Hydrochlorothiazide 12.5 mg 12/20/17 10:00 12/20/17 10:29 Microzide PO 12.5 mg DAILY MARIA R Administration Losartan Potassium 50 mg 12/20/17 10:00 12/20/17 10:28 Cozaar PO 50 mg DAILY MARIA R Administration Metoprolol Tartrate 50 mg 12/20/17 10:30 12/20/17 10:30 Lopressor PO 50 mg BIDCC MARIA R Administration Pneumococcal Polyvalent Vaccine 0.5 ml 12/22/17 10:00 Pneumovax 23 Vaccine IM 12/22/17 10:01 .ONCE ONE - Patient Studies Lab Studies: Lab Studies 12/20/17 12/20/17 12/19/17 Range/Units 06:25 06:25 17:24 WBC 7.6 (4.8-10.8) K/uL RBC 4.31 (3.80-5.20) Mil/uL Hgb 12.7 (11.0-16.0) g/dL Hct 37.0 (34.0-47.0) % MCV 85.8 (81.0-99.0) fL MCH 29.5 (27.0-31.0) pg MCHC 34.4 (33.0-37.0) g/dL RDW 13.6 (11.5-14.5) % Plt Count 250 (130-400) K/uL MPV 8.4 (7.2-11.7) fL Neut % (Auto) 62.0 (50.0-75.0) % Lymph % (Auto) 29.5 (20.0-40.0) % [place] % (Auto) 7.4 (0.0-10.0) % Eos % (Auto) 0.8 (0.0-4.0) % Baso % (Auto) 0.3 (0.0-2.0) % Neut # (Auto) 4.7 (1.8-7.0) K/uL Lymph # (Auto) 2.2 (1.0-4.3) K/uL [place] # (Auto) 0.6 (0.0-0.8) K/uL Eos # (Auto) 0.1 (0.0-0.7) K/uL Baso # (Auto) 0.0 (0.0-0.2) K/uL D-Dimer, Quantitative (0-243) ng/mlDDU Puncture Site pCO2 (35-45) mm/Hg pO2 (80-100) mm/Hg HCO3 (21-28) mmol/L ABG pH (7.35-7.45) ABG Total CO2 (22-28) mmol/L ABG O2 Saturation (95-98) % ABG Base Excess (-2.0-3.0) mmol/L Seferino Test ABG Potassium (3.6-5.2) mmol/L A-a O2 Difference mm/Hg Respiratory Index Sodium 140 (132-148) mmol/l Chloride 108 H (98-107) mmol/L Glucose (65-105) mg/dl Lactate (0.7-2.1) mmol/L Liter Flow FiO2 % Potassium 4.0 (3.6-5.2) mmol/L Carbon Dioxide 25 (22-30) mmol/L Anion Gap 11 (10-20) BUN 15 (7-17) mg/dL Creatinine 0.7 (0.7-1.2) mg/dL Est GFR ( Amer) > 60 Est GFR (Non-Af Amer) > 60 Random Glucose 93 (65-105) mg/dL Hemoglobin A1c (4.2-6.5) % Calcium 8.7 (8.6-10.4) mg/dl Phosphorus 3.3 (2.5-4.5) mg/dL Magnesium 2.0 (1.6-2.3) mg/dL Total Bilirubin 0.5 (0.2-1.3) mg/dL AST 53 H D (14-36) U/L ALT 38 (9-52) U/L Alkaline Phosphatase 98 (38-126) U/L Total Creatine Kinase 154 H 145 H (30-135) U/L CK-MB (Mass) 10.9 H 9.62 H (0.0-3.38) ng/mL Troponin I 2.3400 H* 5.2600 H* (0.00-0.120) ng/mL Total Protein 6.8 (6.3-8.3) g/dL Albumin 3.8 (3.5-5.0) g/dL Globulin 3.0 (2.2-3.9) gm/dL Albumin/Globulin Ratio 1.3 (1.0-2.1) Triglycerides (0-149) mg/dL Cholesterol (0-199) mg/dL LDL Cholesterol Direct (0-129) mg/dL HDL Cholesterol (30-70) mg/dL Free T4 (0.78-2.19) ng/dL TSH 3rd Generation (0.46-4.68) mIU/L Arterial Blood Potassium (3.6-5.2) mmol/L Urine Opiates Screen (NEGATIVE) Urine Methadone Screen (NEGATIVE) Ur Barbiturates Screen (NEGATIVE) Ur Phencyclidine Scrn (NEGATIVE) Ur Amphetamines Screen (NEGATIVE) U Benzodiazepines Scrn (NEGATIVE) U Oth Cocaine Metabols (NEGATIVE) U Cannabinoids Screen (NEGATIVE) 12/19/17 12/19/17 12/19/17 Range/Units 15:01 14:03 12:55 WBC (4.8-10.8) K/uL RBC (3.80-5.20) Mil/uL Hgb (11.0-16.0) g/dL Hct (34.0-47.0) % MCV (81.0-99.0) fL MCH (27.0-31.0) pg MCHC (33.0-37.0) g/dL RDW (11.5-14.5) % Plt Count (130-400) K/uL MPV (7.2-11.7) fL Neut % (Auto) (50.0-75.0) % Lymph % (Auto) (20.0-40.0) % [place] % (Auto) (0.0-10.0) % Eos % (Auto) (0.0-4.0) % Baso % (Auto) (0.0-2.0) % Neut # (Auto) (1.8-7.0) K/uL Lymph # (Auto) (1.0-4.3) K/uL [place] # (Auto) (0.0-0.8) K/uL Eos # (Auto) (0.0-0.7) K/uL Baso # (Auto) (0.0-0.2) K/uL D-Dimer, Quantitative (0-243) ng/mlDDU Puncture Site Rra pCO2 43 (35-45) mm/Hg pO2 108 H (80-100) mm/Hg HCO3 21.0 (21-28) mmol/L ABG pH 7.30 L (7.35-7.45) ABG Total CO2 22.5 (22-28) mmol/L ABG O2 Saturation 100.3 H (95-98) % ABG Base Excess -5.1 L (-2.0-3.0) mmol/L Seferino Test Pos ABG Potassium 3.9 (3.6-5.2) mmol/L A-a O2 Difference 38.0 mm/Hg Respiratory Index 0.4 Sodium 140.0 (132-148) mmol/l Chloride 112.0 H (98-107) mmol/L Glucose 134 H (65-105) mg/dl Lactate 2.0 (0.7-2.1) mmol/L Liter Flow 2.0 FiO2 28.0 % Potassium (3.6-5.2) mmol/L Carbon Dioxide (22-30) mmol/L Anion Gap (10-20) BUN (7-17) mg/dL Creatinine (0.7-1.2) mg/dL Est GFR ( Amer) Est GFR (Non-Af Amer) Random Glucose (65-105) mg/dL Hemoglobin A1c (4.2-6.5) % Calcium (8.6-10.4) mg/dl Phosphorus (2.5-4.5) mg/dL Magnesium (1.6-2.3) mg/dL Total Bilirubin (0.2-1.3) mg/dL AST (14-36) U/L ALT (9-52) U/L Alkaline Phosphatase (38-126) U/L Total Creatine Kinase (30-135) U/L CK-MB (Mass) (0.0-3.38) ng/mL Troponin I (0.00-0.120) ng/mL Total Protein (6.3-8.3) g/dL Albumin (3.5-5.0) g/dL Globulin (2.2-3.9) gm/dL Albumin/Globulin Ratio (1.0-2.1) Triglycerides 164 H (0-149) mg/dL Cholesterol 184 (0-199) mg/dL LDL Cholesterol Direct 106 (0-129) mg/dL HDL Cholesterol 30 (30-70) mg/dL Free T4 (0.78-2.19) ng/dL TSH 3rd Generation 0.63 (0.46-4.68) mIU/L Arterial Blood Potassium 3.9 (3.6-5.2) mmol/L Urine Opiates Screen Negative (NEGATIVE) Urine Methadone Screen Negative (NEGATIVE) Ur Barbiturates Screen Negative (NEGATIVE) Ur Phencyclidine Scrn Negative (NEGATIVE) Ur Amphetamines Screen Negative (NEGATIVE) U Benzodiazepines Scrn Negative (NEGATIVE) U Oth Cocaine Metabols Negative (NEGATIVE) U Cannabinoids Screen Negative (NEGATIVE) 12/19/17 12/19/17 12/19/17 Range/Units 12:24 12:24 12:24 WBC (4.8-10.8) K/uL RBC (3.80-5.20) Mil/uL Hgb (11.0-16.0) g/dL Hct (34.0-47.0) % MCV (81.0-99.0) fL MCH (27.0-31.0) pg MCHC (33.0-37.0) g/dL RDW (11.5-14.5) % Plt Count (130-400) K/uL MPV (7.2-11.7) fL Neut % (Auto) (50.0-75.0) % Lymph % (Auto) (20.0-40.0) % [place] % (Auto) (0.0-10.0) % Eos % (Auto) (0.0-4.0) % Baso % (Auto) (0.0-2.0) % Neut # (Auto) (1.8-7.0) K/uL Lymph # (Auto) (1.0-4.3) K/uL [place] # (Auto) (0.0-0.8) K/uL Eos # (Auto) (0.0-0.7) K/uL Baso # (Auto) (0.0-0.2) K/uL D-Dimer, Quantitative < 200 (0-243) ng/mlDDU Puncture Site pCO2 (35-45) mm/Hg pO2 (80-100) mm/Hg HCO3 (21-28) mmol/L ABG pH (7.35-7.45) ABG Total CO2 (22-28) mmol/L ABG O2 Saturation (95-98) % ABG Base Excess (-2.0-3.0) mmol/L Seferino Test ABG Potassium (3.6-5.2) mmol/L A-a O2 Difference mm/Hg Respiratory Index Sodium (132-148) mmol/l Chloride (98-107) mmol/L Glucose (65-105) mg/dl Lactate (0.7-2.1) mmol/L Liter Flow FiO2 % Potassium (3.6-5.2) mmol/L Carbon Dioxide (22-30) mmol/L Anion Gap (10-20) BUN (7-17) mg/dL Creatinine (0.7-1.2) mg/dL Est GFR ( Amer) Est GFR (Non-Af Amer) Random Glucose (65-105) mg/dL Hemoglobin A1c 5.5 (4.2-6.5) % Calcium (8.6-10.4) mg/dl Phosphorus (2.5-4.5) mg/dL Magnesium (1.6-2.3) mg/dL Total Bilirubin (0.2-1.3) mg/dL AST (14-36) U/L ALT (9-52) U/L Alkaline Phosphatase (38-126) U/L Total Creatine Kinase (30-135) U/L CK-MB (Mass) (0.0-3.38) ng/mL Troponin I (0.00-0.120) ng/mL Total Protein (6.3-8.3) g/dL Albumin (3.5-5.0) g/dL Globulin (2.2-3.9) gm/dL Albumin/Globulin Ratio (1.0-2.1) Triglycerides (0-149) mg/dL Cholesterol (0-199) mg/dL LDL Cholesterol Direct (0-129) mg/dL HDL Cholesterol (30-70) mg/dL Free T4 1.41 (0.78-2.19) ng/dL TSH 3rd Generation (0.46-4.68) mIU/L Arterial Blood Potassium (3.6-5.2) mmol/L Urine Opiates Screen (NEGATIVE) Urine Methadone Screen (NEGATIVE) Ur Barbiturates Screen (NEGATIVE) Ur Phencyclidine Scrn (NEGATIVE) Ur Amphetamines Screen (NEGATIVE) U Benzodiazepines Scrn (NEGATIVE) U Oth Cocaine Metabols (NEGATIVE) U Cannabinoids Screen (NEGATIVE) Laboratory Results - last 24 hr 12/19/17 12/19/17 12/19/17 12:24 12:24 12:24 WBC RBC Hgb Hct MCV MCH MCHC RDW Plt Count MPV Neut % (Auto) Lymph % (Auto) [place] % (Auto) Eos % (Auto) Baso % (Auto) Neut # (Auto) Lymph # (Auto) [place] # (Auto) Eos # (Auto) Baso # (Auto) D-Dimer, Quantitative < 200 Puncture Site pCO2 pO2 HCO3 ABG pH ABG Total CO2 ABG O2 Saturation ABG Base Excess Seferino Test ABG Potassium A-a O2 Difference Respiratory Index Sodium Chloride Glucose Lactate Liter Flow FiO2 Potassium Carbon Dioxide Anion Gap BUN Creatinine Est GFR ( Amer) Est GFR (Non-Af Amer) Random Glucose Hemoglobin A1c 5.5 Calcium Phosphorus Magnesium Total Bilirubin AST ALT Alkaline Phosphatase Total Creatine Kinase CK-MB (Mass) Troponin I Total Protein Albumin Globulin Albumin/Globulin Ratio Triglycerides Cholesterol LDL Cholesterol Direct HDL Cholesterol Free T4 1.41 TSH 3rd Generation Arterial Blood Potassium Urine Opiates Screen Urine Methadone Screen Ur Barbiturates Screen Ur Phencyclidine Scrn Ur Amphetamines Screen U Benzodiazepines Scrn U Oth Cocaine Metabols U Cannabinoids Screen 12/19/17 12/19/17 12/19/17 12:55 14:03 15:01 WBC RBC Hgb Hct MCV MCH MCHC RDW Plt Count MPV Neut % (Auto) Lymph % (Auto) [place] % (Auto) Eos % (Auto) Baso % (Auto) Neut # (Auto) Lymph # (Auto) [place] # (Auto) Eos # (Auto) Baso # (Auto) D-Dimer, Quantitative Puncture Site Rra pCO2 43 pO2 108 H HCO3 21.0 ABG pH 7.30 L ABG Total CO2 22.5 ABG O2 Saturation 100.3 H ABG Base Excess -5.1 L Seferino Test Pos ABG Potassium 3.9 A-a O2 Difference 38.0 Respiratory Index 0.4 Sodium 140.0 Chloride 112.0 H Glucose 134 H Lactate 2.0 Liter Flow 2.0 FiO2 28.0 Potassium Carbon Dioxide Anion Gap BUN Creatinine Est GFR ( Amer) Est GFR (Non-Af Amer) Random Glucose Hemoglobin A1c Calcium Phosphorus Magnesium Total Bilirubin AST ALT Alkaline Phosphatase Total Creatine Kinase CK-MB (Mass) Troponin I Total Protein Albumin Globulin Albumin/Globulin Ratio Triglycerides 164 H Cholesterol 184 LDL Cholesterol Direct 106 HDL Cholesterol 30 Free T4 TSH 3rd Generation 0.63 Arterial Blood Potassium 3.9 Urine Opiates Screen Negative Urine Methadone Screen Negative Ur Barbiturates Screen Negative Ur Phencyclidine Scrn Negative Ur Amphetamines Screen Negative U Benzodiazepines Scrn Negative U Oth Cocaine Metabols Negative U Cannabinoids Screen Negative 12/19/17 12/20/17 12/20/17 17:24 06:25 06:25 WBC 7.6 RBC 4.31 Hgb 12.7 Hct 37.0 MCV 85.8 MCH 29.5 MCHC 34.4 RDW 13.6 Plt Count 250 MPV 8.4 Neut % (Auto) 62.0 Lymph % (Auto) 29.5 [place] % (Auto) 7.4 Eos % (Auto) 0.8 Baso % (Auto) 0.3 Neut # (Auto) 4.7 Lymph # (Auto) 2.2 [place] # (Auto) 0.6 Eos # (Auto) 0.1 Baso # (Auto) 0.0 D-Dimer, Quantitative Puncture Site pCO2 pO2 HCO3 ABG pH ABG Total CO2 ABG O2 Saturation ABG Base Excess Seferino Test ABG Potassium A-a O2 Difference Respiratory Index Sodium 140 Chloride 108 H Glucose Lactate Liter Flow FiO2 Potassium 4.0 Carbon Dioxide 25 Anion Gap 11 BUN 15 Creatinine 0.7 Est GFR ( Amer) > 60 Est GFR (Non-Af Amer) > 60 Random Glucose 93 Hemoglobin A1c Calcium 8.7 Phosphorus 3.3 Magnesium 2.0 Total Bilirubin 0.5 AST 53 H D ALT 38 Alkaline Phosphatase 98 Total Creatine Kinase 145 H 154 H CK-MB (Mass) 9.62 H 10.9 H Troponin I 5.2600 H* 2.3400 H* Total Protein 6.8 Albumin 3.8 Globulin 3.0 Albumin/Globulin Ratio 1.3 Triglycerides Cholesterol LDL Cholesterol Direct HDL Cholesterol Free T4 TSH 3rd Generation Arterial Blood Potassium Urine Opiates Screen Urine Methadone Screen Ur Barbiturates Screen Ur Phencyclidine Scrn Ur Amphetamines Screen U Benzodiazepines Scrn U Oth Cocaine Metabols U Cannabinoids Screen EKG/Cardiology Studies: Cardiology / EKG Studies 12/19/17 19:00 EKG [ELECTROCARDIOGRAM] Q8H Comment: Mode Of Transportation: Reason For Exam: SVTs on admission 12/20/17 03:00 EKG [ELECTROCARDIOGRAM] Q8H Comment: Mode Of Transportation: Reason For Exam: SVTs on admission Review of Systems - Review of Systems All systems: reviewed and no additional remarkable complaints except (as per HPI ) Critical Care Progress Note - Nutrition Nutrition: Nutrition Category Date Time Status Regular Diet [DIET] Diets 12/19/17 Lunch Active Assessment/Plan - Assessment and Plan (Free Text) Plan: Patient is a 57 year old female with PMHx of hypertension and 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 Patient presented to ED for chest pain, palpitations and shortness of breath that began while at [facility]. Patient noted to be in SVT in ED refractory to adenosine. Synchronized cardioversion was performed at 120 J after which patient converted to sinus rhythm. ICU consulted for cardiovascular monitoring. Echo results pending. Patient s/p pharmacological stress test 12/20/17. Neurological: Patient AAOx3 at baseline chronic L facial droop Cardiovascular: EKG: Initial EKG shows Rate 240, RBBB morphology but with narrow R waves; following cardioversion: NSR @61, R axis deviation, incomplete RBBB, prolonged Qtc at 497 Troponin: elevated likely secondary to synchronized cardioversion Echo f/u Lexiscan F/u Start home med of Hyzaar ASA 81mg PO daily Dr. Moreno, cardiology, consulted. Help appreciated. Respiratory: CXR: no definite interval acute cardiopulmonary disease appreciated. External pacer identified. (see full report) Renal: BUN/Cr stable continue to monitor Infectious disease: WBC: 11.2 continue to monitor Hematology: H/H stable Gastrointestinal: Regular diet Endocrine: maintain euglycemia Prophylaxis: Heparin 5000u SC Q8H, Pepcid 20mg PO daily Case discussed with Dr. Carbajal. <Adolph Carbajal S - Last Filed: 12/20/17 16:39> CCU Objective - Vital Signs / Intake & Output Vital Signs (Last 4 hours): Vital Signs Temp Pulse Resp BP Pulse Ox 12/20/17 16:00 98.3 F 61 16 99 12/20/17 15:50 59 L 15 99 12/20/17 15:40 56 L 14 99 12/20/17 15:33 59 L 12 117/66 99 12/20/17 15:30 57 L 16 99 12/20/17 15:20 61 17 99 12/20/17 15:10 59 L 12 99 12/20/17 15:00 62 16 99 12/20/17 14:50 66 18 99 12/20/17 14:40 62 14 99 12/20/17 14:33 55 L 16 108/54 L 99 12/20/17 14:30 60 15 99 12/20/17 14:20 78 20 12/20/17 14:10 76 20 99 12/20/17 14:00 61 14 99 12/20/17 13:50 55 L 18 98 12/20/17 13:40 57 L 18 98 12/20/17 13:33 60 21 122/66 98 12/20/17 13:30 66 18 99 12/20/17 13:20 64 15 99 12/20/17 13:10 74 18 98 12/20/17 13:00 68 13 99 12/20/17 12:59 69 12 122/56 L 96 12/20/17 12:56 68 20 Intake and Output (Last 8hrs): Intake & Output 12/20/17 12/20/17 12/20/17 06:59 14:59 22:59 Intake Total 20 520 300 Output Total 350 0 750 Balance -330 520 -450 Weight 136 lb 14.4 oz Intake: Intake, IV Amount 20 20 Left Antecubital 10 10 Right Antecubital 10 10 Oral 500 300 Output: Urine 350 0 750 Urine, Voided 350 0 750 Stool 0 0 Other: # Bowel Movements 0 - Medications Active Medications: Active Medications Generic Name Dose Route Start Last Admin Trade Name Freq PRN Reason Stop Dose Admin Aspirin 81 mg 12/19/17 14:30 12/20/17 10:28 Aspirin Chewable PO 81 mg DAILY MARIA R Administration Famotidine 20 mg 12/20/17 10:00 12/20/17 10:29 Pepcid PO 20 mg DAILY MARIA R Administration Heparin Sodium (Porcine) 5,000 units 12/19/17 14:00 12/20/17 13:50 Heparin SC 5,000 units Q8 MARIA R Administration Hydrochlorothiazide 12.5 mg 12/20/17 10:00 12/20/17 10:29 Microzide PO 12.5 mg DAILY MARIA R Administration Losartan Potassium 50 mg 12/20/17 10:00 12/20/17 10:28 Cozaar PO 50 mg DAILY MARIA R Administration Metoprolol Tartrate 50 mg 12/20/17 10:30 12/20/17 10:30 Lopressor PO 50 mg BIDCC MARIA R Administration Pneumococcal Polyvalent Vaccine 0.5 ml 12/22/17 10:00 Pneumovax 23 Vaccine IM 12/22/17 10:01 .ONCE ONE - Patient Studies Lab Studies: Microbiology Studies 12/19/17 12:57 MRSA Culture (Admit) - Final Naris MRSA NOT DETECTED Lab Studies 12/20/17 12/20/17 12/19/17 Range/Units 06:25 06:25 17:24 WBC 7.6 (4.8-10.8) K/uL RBC 4.31 (3.80-5.20) Mil/uL Hgb 12.7 (11.0-16.0) g/dL Hct 37.0 (34.0-47.0) % MCV 85.8 (81.0-99.0) fL MCH 29.5 (27.0-31.0) pg MCHC 34.4 (33.0-37.0) g/dL RDW 13.6 (11.5-14.5) % Plt Count 250 (130-400) K/uL MPV 8.4 (7.2-11.7) fL Neut % (Auto) 62.0 (50.0-75.0) % Lymph % (Auto) 29.5 (20.0-40.0) % [place] % (Auto) 7.4 (0.0-10.0) % Eos % (Auto) 0.8 (0.0-4.0) % Baso % (Auto) 0.3 (0.0-2.0) % Neut # (Auto) 4.7 (1.8-7.0) K/uL Lymph # (Auto) 2.2 (1.0-4.3) K/uL [place] # (Auto) 0.6 (0.0-0.8) K/uL Eos # (Auto) 0.1 (0.0-0.7) K/uL Baso # (Auto) 0.0 (0.0-0.2) K/uL Sodium 140 (132-148) mmol/L Potassium 4.0 (3.6-5.2) mmol/L Chloride 108 H (98-107) mmol/L Carbon Dioxide 25 (22-30) mmol/L Anion Gap 11 (10-20) BUN 15 (7-17) mg/dL Creatinine 0.7 (0.7-1.2) mg/dL Est GFR ( Amer) > 60 Est GFR (Non-Af Amer) > 60 Random Glucose 93 (65-105) mg/dL Calcium 8.7 (8.6-10.4) mg/dl Phosphorus 3.3 (2.5-4.5) mg/dL Magnesium 2.0 (1.6-2.3) mg/dL Total Bilirubin 0.5 (0.2-1.3) mg/dL AST 53 H D (14-36) U/L ALT 38 (9-52) U/L Alkaline Phosphatase 98 (38-126) U/L Total Creatine Kinase 154 H 145 H (30-135) U/L CK-MB (Mass) 10.9 H 9.62 H (0.0-3.38) ng/mL Troponin I 2.3400 H* 5.2600 H* (0.00-0.120) ng/mL Total Protein 6.8 (6.3-8.3) g/dL Albumin 3.8 (3.5-5.0) g/dL Globulin 3.0 (2.2-3.9) gm/dL Albumin/Globulin Ratio 1.3 (1.0-2.1) Laboratory Results - last 24 hr 12/19/17 12/20/17 12/20/17 17:24 06:25 06:25 WBC 7.6 RBC 4.31 Hgb 12.7 Hct 37.0 MCV 85.8 MCH 29.5 MCHC 34.4 RDW 13.6 Plt Count 250 MPV 8.4 Neut % (Auto) 62.0 Lymph % (Auto) 29.5 [place] % (Auto) 7.4 Eos % (Auto) 0.8 Baso % (Auto) 0.3 Neut # (Auto) 4.7 Lymph # (Auto) 2.2 [place] # (Auto) 0.6 Eos # (Auto) 0.1 Baso # (Auto) 0.0 Sodium 140 Potassium 4.0 Chloride 108 H Carbon Dioxide 25 Anion Gap 11 BUN 15 Creatinine 0.7 Est GFR ( Amer) > 60 Est GFR (Non-Af Amer) > 60 Random Glucose 93 Calcium 8.7 Phosphorus 3.3 Magnesium 2.0 Total Bilirubin 0.5 AST 53 H D ALT 38 Alkaline Phosphatase 98 Total Creatine Kinase 145 H 154 H CK-MB (Mass) 9.62 H 10.9 H Troponin I 5.2600 H* 2.3400 H* Total Protein 6.8 Albumin 3.8 Globulin 3.0 Albumin/Globulin Ratio 1.3 EKG/Cardiology Studies: Cardiology / EKG Studies 12/19/17 19:00 EKG [ELECTROCARDIOGRAM] Q8H Comment: Mode Of Transportation: Reason For Exam: SVTs on admission 12/20/17 03:00 EKG [ELECTROCARDIOGRAM] Q8H Comment: Mode Of Transportation: Reason For Exam: SVTs on admission Critical Care Progress Note - Nutrition Nutrition: Nutrition Category Date Time Status Regular Diet [DIET] Diets 12/19/17 Lunch Active Attending/Attestation - Attestation I have personally seen and examined this patient.: Yes I have fully participated in the care of the patient.: Yes I have reviewed all pertinent clinical information: Yes Notes (Text): 12/20/17 16:38 Patient seen and examined Resting comfortably in no distress Status post cardioversion follow-up echocardiogram and stress test Seen by cardiology stable for transfer to floor
--- NOTE | 2017-12-20 12:43 | CP.PCM.PN ---
Subjective - Date & Time of Evaluation Date of Evaluation: 12/20/17 Time of Evaluation: 13:40 - Subjective Subjective: clinically same Objective - Vital Signs/Intake and Output Vital Signs (last 24 hours): Temp Pulse Resp BP Pulse Ox 98.7 F 78 19 139/79 98 12/20/17 08:00 12/20/17 11:10 12/20/17 11:10 12/20/17 10:34 12/20/17 11:10 Intake and Output: 12/20/17 12/20/17 06:59 18:59 Intake Total 120 20 Output Total 750 0 Balance -630 20 - Medications Medications: Current Medications Aspirin (Aspirin Chewable) 81 mg PO DAILY [facility] Last Admin: 12/20/17 10:28 Dose: 81 mg Famotidine (Pepcid) 20 mg PO DAILY [facility] Last Admin: 12/20/17 10:29 Dose: 20 mg Heparin Sodium (Porcine) (Heparin) 5,000 units SC Q8 [facility] Last Admin: 12/20/17 06:17 Dose: 5,000 units Hydrochlorothiazide (Microzide) 12.5 mg PO DAILY [facility] Last Admin: 12/20/17 10:29 Dose: 12.5 mg Losartan Potassium (Cozaar) 50 mg PO DAILY [facility] Last Admin: 12/20/17 10:28 Dose: 50 mg Metoprolol [facility] ([facility]) [facility] Admin: 12/20/17 10:30 Dose: 50 mg Pneumococcal Polyvalent Vaccine (Pneumovax 23 Vaccine) 0.5 ml IM .ONCE ONE Stop: 12/22/17 10:01 - Labs Labs: 12/20/17 06:25 12/20/17 06:25 PT 11.6 SECONDS (9.7-12.2) 12/19/17 11:00 INR 1.1 12/19/17 11:00 APTT 36 SECONDS (21-34) H 12/19/17 11:00 - Constitutional Appears: Well - Head Exam Head Exam: ATRAUMATIC, NORMAL INSPECTION, NORMOCEPHALIC - Eye Exam Eye Exam: PERRL - ENT Exam ENT Exam: Normal Exam - Neck Exam Neck Exam: Full ROM - Respiratory Exam Respiratory Exam: Decreased Breath Sounds, Clear to Ausculation Bilateral - Cardiovascular Exam Cardiovascular Exam: REGULAR RHYTHM - GI/Abdominal Exam GI & Abdominal Exam: Soft, Diminished Bowel Sounds Assessment and Plan (1) HTN (hypertension) Status: Acute (2) SVT (supraventricular tachycardia) Status: Acute (3) Troponin I above reference range Status: Acute (4) Migraine Status: Acute - Assessment and Plan (Free Text) Plan: Aspirin GI prophylaxis DVT prophylaxis Metoprolol Cardiology consult As ordered
--- NOTE | 2017-12-21 00:25 | CARD ---
APPROVED REPORT Date of service: 12/19/2017 EXAM: Two-dimensional and M-mode echocardiogram with Doppler and color Doppler. Other Information Quality : GoodRhythm : INDICATION Abnormal EKG/Arrhythmia Chest Pain 2D DIMENSIONS IVSd1.0 (0.7-1.1cm)LVDd3.9 (3.9-5.9cm) PWd1.0 (0.7-1.1cm)LVDs2.2 (2.5-4.0cm) FS (%) 43.8 %LVEF (%)75.7 (>50%) M-Mode DIMENSIONS Left Atrium (MM)2.98 (2.5-4.0cm)IVSd1.07 (0.7-1.1cm) Aortic Root3.02 (2.2-3.7cm)LVDd4.05 (4.0-5.6cm) Aortic Cusp Exc.1.75 (1.5-2.0cm)PWd0.76 (0.7-1.1cm) FS (%) 49 %LVDs2.08 (2.0-3.8cm) LVEF (%)81 (>50%) Mitral Valve MV E Jsihkmft661.7cm/sMV A Lvopplda54.9cm/sE/A ratio1.6 TDI E/Lateral E'0.0E/Medial E'0.0 Tricuspid Valve TR Peak [id number]/sTR Peak Gr.[id number] LEFT VENTRICLE The left ventricle is normal size. There is normal left ventricular wall thickness. Left ventricle systolic function is normal. The Ejection Fraction is >70%. There is normal LV segmental wall motion. The left ventricular diastolic function is normal. RIGHT VENTRICLE The right ventricle is normal size. There is normal right ventricular wall thickness. The right ventricular systolic function is normal. ATRIA The left atrium size is normal. The right atrium size is normal. The interatrial septum is intact with no evidence for an atrial septal defect. AORTIC VALVE The aortic valve is normal in structure. No aortic regurgitation is present. There is no aortic valvular stenosis. MITRAL VALVE The mitral valve is normal in structure. There is no evidence of mitral valve prolapse. There is no mitral valve stenosis. Mitral regurgitation is mild. TRICUSPID VALVE The tricuspid valve is normal in structure. There is mild tricuspid regurgitation. Right ventricular systolic pressure is estimated at 30-40 mmHg. There is mild pulmonary hypertension. PULMONIC VALVE The pulmonic valve is not well visualized. There is no pulmonic valvular regurgitation. GREAT VESSELS The aortic root is normal in size. PERICARDIAL EFFUSION There is no significant pericardial effusion. <Conclusion> Left ventricle systolic function is normal. The Ejection Fraction is >70%. No aortic regurgitation is present. Mitral regurgitation is mild. There is mild tricuspid regurgitation. There is mild pulmonary hypertension. There is no pulmonic valvular regurgitation.
[2017-12-21 06:30] LABS: BASO % 0.6 % (0.0-2.0); EOS # 0.1 K/uL (0.0-0.7); EOS % 1.4 % (0.0-4.0); HEMOGLOBIN 12.7 g/dL (11.0-16.0); LYMPH # 2.4 K/uL (1.0-4.3); LYMPH % 34.7 % (20.0-40.0); MEAN CELL VOLUME 85.9 fL (81.0-99.0); MEAN CORPUSCULAR HEMOGLOBIN 29.9 pg (27.0-31.0); MEAN CORPUSCULAR HGB CONC 34.8 g/dL (33.0-37.0); MEAN PLATELET VOLUME 8.6 fL (7.2-11.7); MONO # 0.4 K/uL (0.0-0.8); MONO % 6.1 % (0.0-10.0); NEUT % 57.2 % (50.0-75.0); NRBC % 0.1 % (0.0-2.0); RBC 4.25 Mil/uL (3.80-5.20); RED CELL DISTRIBUTION WIDTH 13.4 % (11.5-14.5)
[2017-12-21 06:47] LABS: ALB/GLOB RATIO 1.2 (1.0-2.1); ALBUMIN 3.9 g/dL (3.5-5.0); ALT/SGPT 42 U/L (9-52); AST/SGOT 52 U/L (14-36); BLOOD UREA NITROGEN 14 mg/dL (7-17); CALCIUM 8.9 mg/dl (8.6-10.4); GFR AFRICAN-AMERICAN > 60; GFR NON-AFRICAN AMERICAN > 60
--- NOTE | 2017-12-21 10:22 | CP.CCUPN ---
<Betty Villanueva P - Last Filed: 12/21/17 13:32> CCU Subjective - Physician Review Subjective (Free Text): PGY-1 critical care progress note. Patient seen and evaluated at bedside. Patient resting comfortably in bed, no acute distress. States she feels good. Denies chest pain, palpitations, shortness of breath, nausea, vomiting, dizziness, fever and chills. CCU Objective - Vital Signs / Intake & Output Vital Signs (Last 4 hours): Vital Signs Temp Pulse Resp BP Pulse Ox 12/21/17 09:01 57 L 18 111/59 L 96 12/21/17 09:00 58 L 13 97 12/21/17 08:01 60 14 112/65 97 12/21/17 08:00 98.2 F 47 L 13 99 12/21/17 07:01 54 L 14 131/66 96 12/21/17 07:00 56 L 13 99 12/21/17 06:32 52 L 8 L 127/73 96 Intake and Output (Last 8hrs): Intake & Output 12/20/17 12/21/17 12/21/17 22:59 06:59 14:59 Intake Total 470 100 250 Output Total 1250 Balance -780 100 250 Weight 135 lb 14.4 oz Intake: Intake, IV Amount 20 0 Left Antecubital 10 0 Right Antecubital 10 0 Oral 450 100 250 Output: Urine 1250 Urine, Voided 1250 Other: # Voids Urine, Voided 0 # Bowel Movements 0 0 - Physical Exam Other physical findings (Free Text): - Head Exam Head Exam: ATRAUMATIC, NORMOCEPHALIC - Eye Exam Eye Exam: EOMI, PERRL - ENT Exam ENT Exam: Mucous Membranes Moist - Neck Exam Neck exam: Positive for: Full Rom - Respiratory Exam Respiratory Exam: Clear to Auscultation Bilateral. absent: Rales, Rhonchi, Wheezes - Cardiovascular Exam Cardiovascular Exam: REGULAR RHYTHM, +S1, +S2 - GI/Abdominal Exam GI & Abdominal Exam: Normal Bowel Sounds, Soft. absent: Tenderness - Extremities Exam Extremities exam: Positive for: normal inspection. Negative for: calf tenderness, pedal edema - Neurological Exam Neurological exam: Alert, CN II-XII Intact (L sided facial droop, chronic. otherwise normal), Oriented x3 - Psychiatric Exam Psychiatric exam: Normal Affect, Normal Mood - Skin Skin Exam: Dry, Normal Color, Warm - Medications Active Medications: Active Medications Generic Name Dose Route Start Last Admin Trade Name Freq PRN Reason Stop Dose Admin Acetaminophen 650 mg 12/20/17 23:33 12/20/17 23:38 Tylenol 325mg Tab PO 650 mg Q6 PRN Administration Pain, moderate (4-7) Aspirin 81 mg 12/19/17 14:30 12/21/17 09:30 Aspirin Chewable PO 81 mg DAILY MARIA R Administration Famotidine 20 mg 12/20/17 10:00 12/21/17 09:30 Pepcid PO 20 mg DAILY MARIA R Administration Heparin Sodium (Porcine) 5,000 units 12/19/17 14:00 12/21/17 05:25 Heparin SC 5,000 units Q8 MARIA R Administration Hydrochlorothiazide 12.5 mg 12/20/17 10:00 12/21/17 09:30 Microzide PO 12.5 mg DAILY MARIA R Administration Losartan Potassium 50 mg 12/20/17 10:00 12/21/17 09:30 Cozaar PO 50 mg DAILY MARIA R Administration Metoprolol Tartrate 25 mg 12/21/17 18:00 Lopressor PO BID [facility] Pneumococcal Polyvalent Vaccine 0.5 ml 12/22/17 10:00 Pneumovax 23 Vaccine IM 12/22/17 10:01 .ONCE ONE - Patient Studies Lab Studies: Microbiology Studies 12/19/17 12:57 MRSA Culture (Admit) - Final Naris MRSA NOT DETECTED Lab Studies 12/21/17 12/21/17 Range/Units 06:21 06:21 WBC 7.0 (4.8-10.8) K/uL RBC 4.25 (3.80-5.20) Mil/uL Hgb 12.7 (11.0-16.0) g/dL Hct 36.5 (34.0-47.0) % MCV 85.9 (81.0-99.0) fL MCH 29.9 (27.0-31.0) pg MCHC 34.8 (33.0-37.0) g/dL RDW 13.4 (11.5-14.5) % Plt Count 260 (130-400) K/uL MPV 8.6 (7.2-11.7) fL Neut % (Auto) 57.2 (50.0-75.0) % Lymph % (Auto) 34.7 (20.0-40.0) % Brule % (Auto) 6.1 (0.0-10.0) % Eos % (Auto) 1.4 (0.0-4.0) % Baso % (Auto) 0.6 (0.0-2.0) % Neut # (Auto) 4.0 (1.8-7.0) K/uL Lymph # (Auto) 2.4 (1.0-4.3) K/uL Brule # (Auto) 0.4 (0.0-0.8) K/uL Eos # (Auto) 0.1 (0.0-0.7) K/uL Baso # (Auto) 0.0 (0.0-0.2) K/uL Sodium 140 (132-148) mmol/L Potassium 3.7 (3.6-5.2) mmol/L Chloride 104 (98-107) mmol/L Carbon Dioxide 27 (22-30) mmol/L Anion Gap 13 (10-20) BUN 14 (7-17) mg/dL Creatinine 0.6 L (0.7-1.2) mg/dL Est GFR ( Amer) > 60 Est GFR (Non-Af Amer) > 60 Random Glucose 96 (65-105) mg/dL Calcium 8.9 (8.6-10.4) mg/dl Phosphorus 4.0 (2.5-4.5) mg/dL Magnesium 2.0 (1.6-2.3) mg/dL Total Bilirubin 0.5 (0.2-1.3) mg/dL AST 52 H (14-36) U/L ALT 42 (9-52) U/L Alkaline Phosphatase 103 (38-126) U/L Total Protein 7.1 (6.3-8.3) g/dL Albumin 3.9 (3.5-5.0) g/dL Globulin 3.2 (2.2-3.9) gm/dL Albumin/Globulin Ratio 1.2 (1.0-2.1) Laboratory Results - last 24 hr 12/21/17 12/21/17 06:21 06:21 WBC 7.0 RBC 4.25 Hgb 12.7 Hct 36.5 MCV 85.9 MCH 29.9 MCHC 34.8 RDW 13.4 Plt Count 260 MPV 8.6 Neut % (Auto) 57.2 Lymph % (Auto) 34.7 Brule % (Auto) 6.1 Eos % (Auto) 1.4 Baso % (Auto) 0.6 Neut # (Auto) 4.0 Lymph # (Auto) 2.4 Brule # (Auto) 0.4 Eos # (Auto) 0.1 Baso # (Auto) 0.0 Sodium 140 Potassium 3.7 Chloride 104 Carbon Dioxide 27 Anion Gap 13 BUN 14 Creatinine 0.6 L Est GFR ( Amer) > 60 Est GFR (Non-Af Amer) > 60 Random Glucose 96 Calcium 8.9 Phosphorus 4.0 Magnesium 2.0 Total Bilirubin 0.5 AST 52 H ALT 42 Alkaline Phosphatase 103 Total Protein 7.1 Albumin 3.9 Globulin 3.2 Albumin/Globulin Ratio 1.2 Review of Systems - Review of Systems All systems: reviewed and no additional remarkable complaints except (as per HPI ) Critical Care Progress Note - Prophylaxis GI Prophylaxis GI: Pepsid - Prophylaxis DVT Prophylaxis DVT: Heparin SQ - Nutrition Nutrition: Nutrition Category Date Time Status Regular Diet [DIET] Diets 12/19/17 Lunch Active Assessment/Plan - Assessment and Plan (Free Text) Plan: Patient is a 57 year old female with PMHx of hypertension and 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 Patient presented to ED for chest pain, palpitations and shortness of breath that began while at selena class. Patient noted to be in SVT in ED refractory to adenosine. Synchronized cardioversion was performed at 120 J after which patient converted to sinus rhythm. ICU consulted for cardiovascular monitoring. Echo done 12/19/17: EF > 70%, LV systolic function normal, mild Tricuspid regurgitation and mild Pulmonary HTN. Patient s/p pharmacological stress test 12/20/17- preliminary results: upsloping of ST depresions, no chest pain, no arrhythmia, final read pending. Metoprolol tartrate for rate control decreased from 50 to 25 PO BID due to bradycardia. Patient stable for telemetry. Neurological: Patient AAOx3 at baseline chronic L facial droop Cardiovascular: EKG: Initial EKG shows Rate 240, RBBB morphology but with narrow R waves; following cardioversion: NSR @61, R axis deviation, incomplete RBBB, prolonged Qtc at 497 Troponin: elevated likely secondary to synchronized cardioversion Echo 12/19/17: EF > 70%, LV systolic function normal, mild Tricuspid regurgitation and mild Pulmonary HTN Lexiscan 12/20/17- preliminary results: upsloping of ST depresions, no chest pain , no arrhythmia Dr. Moreno, cardiology, consulted. Help appreciated. Start home med of Hyzaar ASA 81mg PO daily decreased Metoprolol tartrate from 50 to 25mg PO BID due to bradycardia Respiratory: CXR: no definite interval acute cardiopulmonary disease appreciated. External pacer identified. (see full report) Renal: BUN/Cr stable continue to monitor Infectious disease: WBC WNL continue to monitor Hematology: H/H stable Gastrointestinal: Regular diet Endocrine: maintain euglycemia Prophylaxis: Heparin 5000u SC Q8H, Pepcid 20mg PO daily Dispo: Pt stable to transfer to telemetry. Case discussed with Dr. Gan <Vin Gan - Last Filed: 12/21/17 16:56> CCU Objective - Vital Signs / Intake & Output Vital Signs (Last 4 hours): Vital Signs Temp Pulse Resp BP Pulse Ox 12/21/17 16:01 110/53 L 12/21/17 16:00 98.2 F 63 21 98 12/21/17 15:51 53 L 15 106/63 96 12/21/17 15:01 52 L 16 88/55 L 96 12/21/17 15:00 55 L 17 98 12/21/17 14:01 52 L 22 96/45 L 95 12/21/17 14:00 55 L 14 98 12/21/17 13:01 51 L 18 103/52 L 98 12/21/17 13:00 54 L 16 99 Intake and Output (Last 8hrs): Intake & Output 12/21/17 12/21/17 12/21/17 06:59 14:59 22:59 Intake Total 100 550 Balance 100 550 Weight 135 lb 14.4 oz Intake: Intake, IV Amount 0 Left Antecubital 0 Right Antecubital 0 Oral 100 550 Other: # Voids Urine, Voided 1 # Bowel Movements 0 - Medications Active Medications: Active Medications Generic Name Dose Route Start Last Admin Trade Name Freq PRN Reason Stop Dose Admin Acetaminophen 650 mg 12/20/17 23:33 12/20/17 23:38 Tylenol 325mg Tab PO 650 mg Q6 PRN Administration Pain, moderate (4-7) Aspirin 81 mg 12/19/17 14:30 12/21/17 09:30 Aspirin Chewable PO 81 mg DAILY MARIA R Administration Famotidine 20 mg 12/20/17 10:00 12/21/17 09:30 Pepcid PO 20 mg DAILY MARIA R Administration Heparin Sodium (Porcine) 5,000 units 12/19/17 14:00 12/21/17 14:07 Heparin SC 5,000 units Q8 MARIA R Administration Hydrochlorothiazide 12.5 mg 12/20/17 10:00 12/21/17 09:30 Microzide PO 12.5 mg DAILY MARIA R Administration Losartan Potassium 50 mg 12/20/17 10:00 12/21/17 09:30 Cozaar PO 50 mg DAILY MARIA R Administration Metoprolol Tartrate 25 mg 12/21/17 18:00 Lopressor PO BID [facility] Pneumococcal Polyvalent Vaccine 0.5 ml 12/22/17 10:00 Pneumovax 23 Vaccine IM 12/22/17 10:01 .ONCE ONE - Patient Studies Lab Studies: Microbiology Studies 12/19/17 12:57 MRSA Culture (Admit) - Final Naris MRSA NOT DETECTED Lab Studies 12/21/17 12/21/17 Range/Units 06:21 06:21 WBC 7.0 (4.8-10.8) K/uL RBC 4.25 (3.80-5.20) Mil/uL Hgb 12.7 (11.0-16.0) g/dL Hct 36.5 (34.0-47.0) % MCV 85.9 (81.0-99.0) fL MCH 29.9 (27.0-31.0) pg MCHC 34.8 (33.0-37.0) g/dL RDW 13.4 (11.5-14.5) % Plt Count 260 (130-400) K/uL MPV 8.6 (7.2-11.7) fL Neut % (Auto) 57.2 (50.0-75.0) % Lymph % (Auto) 34.7 (20.0-40.0) % Brule % (Auto) 6.1 (0.0-10.0) % Eos % (Auto) 1.4 (0.0-4.0) % Baso % (Auto) 0.6 (0.0-2.0) % Neut # (Auto) 4.0 (1.8-7.0) K/uL Lymph # (Auto) 2.4 (1.0-4.3) K/uL Brule # (Auto) 0.4 (0.0-0.8) K/uL Eos # (Auto) 0.1 (0.0-0.7) K/uL Baso # (Auto) 0.0 (0.0-0.2) K/uL Sodium 140 (132-148) mmol/L Potassium 3.7 (3.6-5.2) mmol/L Chloride 104 (98-107) mmol/L Carbon Dioxide 27 (22-30) mmol/L Anion Gap 13 (10-20) BUN 14 (7-17) mg/dL Creatinine 0.6 L (0.7-1.2) mg/dL Est GFR ( Amer) > 60 Est GFR (Non-Af Amer) > 60 Random Glucose 96 (65-105) mg/dL Calcium 8.9 (8.6-10.4) mg/dl Phosphorus 4.0 (2.5-4.5) mg/dL Magnesium 2.0 (1.6-2.3) mg/dL Total Bilirubin 0.5 (0.2-1.3) mg/dL AST 52 H (14-36) U/L ALT 42 (9-52) U/L Alkaline Phosphatase 103 (38-126) U/L Total Protein 7.1 (6.3-8.3) g/dL Albumin 3.9 (3.5-5.0) g/dL Globulin 3.2 (2.2-3.9) gm/dL Albumin/Globulin Ratio 1.2 (1.0-2.1) Laboratory Results - last 24 hr 12/21/17 12/21/17 06:21 06:21 WBC 7.0 RBC 4.25 Hgb 12.7 Hct 36.5 MCV 85.9 MCH 29.9 MCHC 34.8 RDW 13.4 Plt Count 260 MPV 8.6 Neut % (Auto) 57.2 Lymph % (Auto) 34.7 Brule % (Auto) 6.1 Eos % (Auto) 1.4 Baso % (Auto) 0.6 Neut # (Auto) 4.0 Lymph # (Auto) 2.4 Brule # (Auto) 0.4 Eos # (Auto) 0.1 Baso # (Auto) 0.0 Sodium 140 Potassium 3.7 Chloride 104 Carbon Dioxide 27 Anion Gap 13 BUN 14 Creatinine 0.6 L Est GFR ( Amer) > 60 Est GFR (Non-Af Amer) > 60 Random Glucose 96 Calcium 8.9 Phosphorus 4.0 Magnesium 2.0 Total Bilirubin 0.5 AST 52 H ALT 42 Alkaline Phosphatase 103 Total Protein 7.1 Albumin 3.9 Globulin 3.2 Albumin/Globulin Ratio 1.2 Critical Care Progress Note - Nutrition Nutrition: Nutrition Category Date Time Status Regular Diet [DIET] Diets 12/19/17 Lunch Active Attending/Attestation - Attestation I have personally seen and examined this patient.: Yes I have fully participated in the care of the patient.: Yes I have reviewed all pertinent clinical information: Yes Notes (Text): 12/21/17 16:53 I have seen and examined the patient. Medical records, lab studies, and imaging were reviewed by me and a management plan was formulated on multidisciplinary rounds with resident Dr. Cabrera. I agree with their documented assessment and plan. Patient is doing well clinically. No further episodes of SVT s/p cardioversion and initiation of beta jac. Decreasing metoprolol as she is bradycardic now , asymptomatic. Clinically stable for downgrade to Telemetry. Critical Care Time 35 minutes. Multi-disciplinary rounds were performed with house staff, nursing, speech therapy, respiratory therapy, pharmacy and nutrition with integrated input from the primary team/attending and other consulting services. The documented time is cumulative and includes review of patient data/exams/labs/chart review and examination of the patient on rounds and throughout the day; time is exclusive of any procedures or teaching time.
--- NOTE | 2017-12-21 10:37 | CP.PCM.PN ---
<Alphonso yDe - Last Filed: 12/21/17 13:32> Subjective - Date & Time of Evaluation Date of Evaluation: 12/21/17 Time of Evaluation: 09:00 - Subjective Subjective: Alphonso Dye, PGY1 Cardiology Progress Note for Dr. Moreno Patient was examined at bedside this morning. She is Kiswahili speaking at baseline mental status; conference interpreter was used. Patient received Lexiscan yesterday. She denies headache, chest pain, shortness of breath, fever , chills, shortness of breath, n/v/d. Patient stated that her chest pain, palpitations, and shortness of breath on admission was the first episode; she has never had any prior episodes or admissions to a hospital for that reason. No overnight changes. Heart rate was noted to be 59 during interview. A Full 12 Point ROS was conducted and unremarkable except as stated above. Objective - Vital Signs/Intake and Output Vital Signs (last 24 hours): Temp Pulse Resp BP Pulse Ox 98.2 F 57 L 18 111/59 L 96 12/21/17 08:00 12/21/17 09:01 12/21/17 09:01 12/21/17 09:01 12/21/17 09:01 Intake and Output: 12/21/17 12/21/17 06:59 18:59 Intake Total 250 250 Output Total 500 Balance -250 250 - Medications Medications: Current Medications Acetaminophen (Tylenol 325mg Tab) 650 mg PO Q6 PRN PRN Reason: Pain, moderate (4-7) Last Admin: 12/20/17 23:38 Dose: 650 mg Aspirin (Aspirin Chewable) 81 mg PO DAILY [facility] Last Admin: 12/21/17 09:30 Dose: 81 mg Famotidine (Pepcid) 20 mg PO DAILY [facility] Last Admin: 12/21/17 09:30 Dose: 20 mg Heparin Sodium (Porcine) (Heparin) 5,000 units SC Q8 [facility] Last Admin: 12/21/17 05:25 Dose: 5,000 units Hydrochlorothiazide (Microzide) 12.5 mg PO DAILY [facility] Last Admin: 12/21/17 09:30 Dose: 12.5 mg Losartan Potassium (Cozaar) 50 mg PO DAILY [facility] Last Admin: 12/21/17 09:30 Dose: 50 mg Metoprolol Tartrate (Lopressor) 25 mg PO BID MARIA R Pneumococcal Polyvalent Vaccine (Pneumovax 23 Vaccine) 0.5 ml IM .ONCE ONE Stop: 12/22/17 10:01 - Labs Labs: 12/21/17 06:21 12/21/17 06:21 PT 11.6 SECONDS (9.7-12.2) 12/19/17 11:00 INR 1.1 12/19/17 11:00 APTT 36 SECONDS (21-34) H 12/19/17 11:00 - Constitutional Appears: Well, No Acute Distress - Head Exam Head Exam: ATRAUMATIC, NORMAL INSPECTION, NORMOCEPHALIC - Eye Exam Eye Exam: EOMI, Normal appearance, PERRL. absent: Scleral icterus Pupil Exam: NORMAL ACCOMODATION - ENT Exam ENT Exam: Normal Exam - Neck Exam Neck Exam: Full ROM - Respiratory Exam Respiratory Exam: Clear to Ausculation Bilateral. absent: Accessory Muscle Use , Chest Wall Tenderness, Decreased Breath Sounds, Rales, Rhonchi, Wheezes, Respiratory Distress, Stridor - Cardiovascular Exam Cardiovascular Exam: Bradycardia, REGULAR RHYTHM, +S1, +S2. absent: JVD, Murmur - GI/Abdominal Exam GI & Abdominal Exam: Soft, Normal Bowel Sounds. absent: Distended, Guarding, Rigid, Tenderness, Organomegaly, Rebound - Extremities Exam Extremities Exam: Full ROM, Normal Capillary Refill, Normal Inspection. absent : Calf Tenderness, Joint Swelling, Pedal Edema, Tenderness - Back Exam Back Exam: NORMAL INSPECTION - Neurological Exam Neurological Exam: Alert, Awake, Oriented x3 - Skin Skin Exam: Dry, Intact, Normal Color, Warm. absent: Cyanosis, Diaphoretic, Rash Assessment and Plan - Assessment and Plan (Free Text) Assessment: Patient is a 57 y/o F with PMHx of HTN, migraines, prior CVA (1997) who presented to the ED for chest pain, palpitations, shortness of breath, and dizziness during selena class. Upon arrival, patient found to be in SVT in the ED , refractory to adenosine. Cardioversion was done and patient converted back to NSR with HRs in 40s, resolving to HR 70s. Patient transferred to ICU for management. Cardiology was consulted for chest pain and SVT. Patient received ECHO and Lexiscan. Troponins elevated (5.26, 2.34) likely secondary to cardioversion. Utox negative. Patient has been asymptomatic, vital signs stable , and doing well in the ICU. Plan: SVT - c/w beta jac for SVT prevention - Denying chest pain, shortness of breath, diaphoresis, palpitations on interview - Lexiscan: official read pending (Prelim report: no angina, arrythmia, positive for ST depressions. Tolerated well) - EKG: Initial EKG shows Rate 240, RBBB morphology but with narrow R waves; following cardioversion: NSR @61, R axis deviation, incomplete RBBB. Elevated Troponins - Trend: 5.26 to 2.34; likely 2/2 cardioversion - ECHO (12/19): EF 75%. Normal LV systolic function. No AR. Mild MR, TR, and mild Pulm HTN. - CXR: negative for acute pulmonary pathology. HTN - c/w home meds - Currently normotensive - Maintain MAP > 65 GI ppx: Pepcid DVT ppx: Hep SC Dispo: Patient is doing well in the ICU. As per ICU, pending transfer to telemetry. Case was discussed and reviewed with Log [employer] Dr. Moreno. Please see any further recommendations as per Dr. Moreno. <Alexander Moreno - Last Filed: 12/22/17 00:09> Objective - Vital Signs/Intake and Output Vital Signs (last 24 hours): Temp Pulse Resp BP Pulse Ox 98.2 F 54 L 20 95/56 L 98 12/21/17 20:00 12/21/17 20:00 12/21/17 20:00 12/21/17 17:01 12/21/17 20:00 Intake and Output: 12/21/17 12/22/17 18:59 06:59 Intake Total 900 Balance 900 - Medications Medications: Current Medications Acetaminophen (Tylenol 325mg Tab) 650 mg PO Q6 PRN PRN Reason: Pain, moderate (4-7) Last Admin: 12/20/17 23:38 Dose: 650 mg Aspirin (Aspirin Chewable) 81 mg PO DAILY [facility] Last Admin: 12/21/17 09:30 Dose: 81 mg Famotidine (Pepcid) 20 mg PO DAILY [facility] Last Admin: 12/21/17 09:30 Dose: 20 mg Heparin Sodium (Porcine) (Heparin) 5,000 units SC Q8 [facility] Last Admin: 12/21/17 21:22 Dose: 5,000 units Hydrochlorothiazide (Microzide) 12.5 mg PO DAILY [facility] Last Admin: 12/21/17 09:30 Dose: 12.5 mg Losartan Potassium (Cozaar) 50 mg PO DAILY [facility] Last Admin: 12/21/17 09:30 Dose: 50 mg Metoprolol Tartrate (Lopressor) 25 mg PO Q12H [facility] Last Admin: 12/21/17 21:26 Dose: Not Given Pneumococcal Polyvalent Vaccine (Pneumovax 23 Vaccine) 0.5 ml IM .ONCE ONE Stop: 12/22/17 10:01 Rosuvastatin Calcium (Crestor) 5 mg PO HS [facility] Last Admin: 12/21/17 21:22 Dose: 5 mg - Labs Labs: 12/21/17 06:21 12/21/17 06:21 PT 11.6 SECONDS (9.7-12.2) 12/19/17 11:00 INR 1.1 12/19/17 11:00 APTT 36 SECONDS (21-34) H 12/19/17 11:00 Assessment and Plan (1) SVT (supraventricular tachycardia) Status: Acute (2) Troponin I above reference range Status: Acute (3) HTN (hypertension) Status: Acute Attending/Attestation - Attestation I have personally seen and examined this patient.: Yes I have fully participated in the care of the patient.: Yes I have reviewed all pertinent clinical information, including history, physical exam and plan: Yes Notes (Text): 12/22/17 00:09 stress test shows partially reversible inferolateral wall defect with ST changes will plan for LHCx in am npo p mn
--- NOTE | 2017-12-21 13:17 | CP.CCUPN ---
CCU Objective - Vital Signs / Intake & Output Vital Signs (Last 4 hours): Vital Signs Temp Pulse Resp BP Pulse Ox 12/21/17 12:01 49 L 13 88/46 L 98 12/21/17 12:00 98.6 F 48 L 15 98 12/21/17 11:01 50 L 17 90/49 L 98 12/21/17 11:00 51 L 17 98 12/21/17 10:01 50 L 12 97/47 L 96 12/21/17 10:00 54 L 14 98 Intake and Output (Last 8hrs): Intake & Output 12/20/17 12/21/17 12/21/17 22:59 06:59 14:59 Intake Total 470 100 350 Output Total 1250 Balance -780 100 350 Weight 135 lb 14.4 oz Intake: Intake, IV Amount 20 0 Left Antecubital 10 0 Right Antecubital 10 0 Oral 450 100 350 Output: Urine 1250 Urine, Voided 1250 Other: # Voids Urine, Voided 1 # Bowel Movements 0 0 - Medications Active Medications: Active Medications Generic Name Dose Route Start Last Admin Trade Name Freq PRN Reason Stop Dose Admin Acetaminophen 650 mg 12/20/17 23:33 12/20/17 23:38 Tylenol 325mg Tab PO 650 mg Q6 PRN Administration Pain, moderate (4-7) Aspirin 81 mg 12/19/17 14:30 12/21/17 09:30 Aspirin Chewable PO 81 mg DAILY MARIA R Administration Famotidine 20 mg 12/20/17 10:00 12/21/17 09:30 Pepcid PO 20 mg DAILY MARIA R Administration Heparin Sodium (Porcine) 5,000 units 12/19/17 14:00 12/21/17 05:25 Heparin SC 5,000 units Q8 MARIA R Administration Hydrochlorothiazide 12.5 mg 12/20/17 10:00 12/21/17 09:30 Microzide PO 12.5 mg DAILY MARIA R Administration Losartan Potassium 50 mg 12/20/17 10:00 12/21/17 09:30 Cozaar PO 50 mg DAILY MARIA R Administration Metoprolol Tartrate 25 mg 12/21/17 18:00 Lopressor PO BID [facility] Pneumococcal Polyvalent Vaccine 0.5 ml 12/22/17 10:00 Pneumovax 23 Vaccine IM 12/22/17 10:01 .ONCE ONE - Patient Studies Lab Studies: Microbiology Studies 12/19/17 12:57 MRSA Culture (Admit) - Final Naris MRSA NOT DETECTED Lab Studies 12/21/17 12/21/17 Range/Units 06:21 06:21 WBC 7.0 (4.8-10.8) K/uL RBC 4.25 (3.80-5.20) Mil/uL Hgb 12.7 (11.0-16.0) g/dL Hct 36.5 (34.0-47.0) % MCV 85.9 (81.0-99.0) fL MCH 29.9 (27.0-31.0) pg MCHC 34.8 (33.0-37.0) g/dL RDW 13.4 (11.5-14.5) % Plt Count 260 (130-400) K/uL MPV 8.6 (7.2-11.7) fL Neut % (Auto) 57.2 (50.0-75.0) % Lymph % (Auto) 34.7 (20.0-40.0) % [place] % (Auto) 6.1 (0.0-10.0) % Eos % (Auto) 1.4 (0.0-4.0) % Baso % (Auto) 0.6 (0.0-2.0) % Neut # (Auto) 4.0 (1.8-7.0) K/uL Lymph # (Auto) 2.4 (1.0-4.3) K/uL [place] # (Auto) 0.4 (0.0-0.8) K/uL Eos # (Auto) 0.1 (0.0-0.7) K/uL Baso # (Auto) 0.0 (0.0-0.2) K/uL Sodium 140 (132-148) mmol/L Potassium 3.7 (3.6-5.2) mmol/L Chloride 104 (98-107) mmol/L Carbon Dioxide 27 (22-30) mmol/L Anion Gap 13 (10-20) BUN 14 (7-17) mg/dL Creatinine 0.6 L (0.7-1.2) mg/dL Est GFR ( Amer) > 60 Est GFR (Non-Af Amer) > 60 Random Glucose 96 (65-105) mg/dL Calcium 8.9 (8.6-10.4) mg/dl Phosphorus 4.0 (2.5-4.5) mg/dL Magnesium 2.0 (1.6-2.3) mg/dL Total Bilirubin 0.5 (0.2-1.3) mg/dL AST 52 H (14-36) U/L ALT 42 (9-52) U/L Alkaline Phosphatase 103 (38-126) U/L Total Protein 7.1 (6.3-8.3) g/dL Albumin 3.9 (3.5-5.0) g/dL Globulin 3.2 (2.2-3.9) gm/dL Albumin/Globulin Ratio 1.2 (1.0-2.1) Laboratory Results - last 24 hr 12/21/17 12/21/17 06:21 06:21 WBC 7.0 RBC 4.25 Hgb 12.7 Hct 36.5 MCV 85.9 MCH 29.9 MCHC 34.8 RDW 13.4 Plt Count 260 MPV 8.6 Neut % (Auto) 57.2 Lymph % (Auto) 34.7 [place] % (Auto) 6.1 Eos % (Auto) 1.4 Baso % (Auto) 0.6 Neut # (Auto) 4.0 Lymph # (Auto) 2.4 [place] # (Auto) 0.4 Eos # (Auto) 0.1 Baso # (Auto) 0.0 Sodium 140 Potassium 3.7 Chloride 104 Carbon Dioxide 27 Anion Gap 13 BUN 14 Creatinine 0.6 L Est GFR ( Amer) > 60 Est GFR (Non-Af Amer) > 60 Random Glucose 96 Calcium 8.9 Phosphorus 4.0 Magnesium 2.0 Total Bilirubin 0.5 AST 52 H ALT 42 Alkaline Phosphatase 103 Total Protein 7.1 Albumin 3.9 Globulin 3.2 Albumin/Globulin Ratio 1.2 Critical Care Progress Note - Nutrition Nutrition: Nutrition Category Date Time Status Regular Diet [DIET] Diets 12/19/17 Lunch Active
--- NOTE | 2017-12-21 17:34 | CP.PCM.PN ---
Subjective - Date & Time of Evaluation Date of Evaluation: 12/21/17 Time of Evaluation: 11:40 - Subjective Subjective: clinically same Objective - Vital Signs/Intake and Output Vital Signs (last 24 hours): Temp Pulse Resp BP Pulse Ox 98.2 F 53 L 18 95/56 L 95 12/21/17 16:00 12/21/17 17:01 12/21/17 17:01 12/21/17 17:01 12/21/17 16:01 Intake and Output: 12/21/17 12/21/17 06:59 18:59 Intake Total 250 550 Output Total 500 Balance -250 550 - Medications Medications: Current Medications Acetaminophen (Tylenol 325mg Tab) 650 mg PO Q6 PRN PRN Reason: Pain, moderate (4-7) Last Admin: 12/20/17 23:38 Dose: 650 mg Aspirin (Aspirin Chewable) 81 mg PO DAILY [facility] Last Admin: 12/21/17 09:30 Dose: 81 mg Famotidine (Pepcid) 20 mg PO DAILY [facility] Last Admin: 12/21/17 09:30 Dose: 20 mg Heparin Sodium (Porcine) (Heparin) 5,000 units SC Q8 [facility] Last Admin: 12/21/17 14:07 Dose: 5,000 units Hydrochlorothiazide (Microzide) 12.5 mg PO DAILY [facility] Last Admin: 12/21/17 09:30 Dose: 12.5 mg Losartan Potassium (Cozaar) 50 mg PO DAILY [facility] Last Admin: 12/21/17 09:30 Dose: 50 mg Metoprolol Tartrate (Lopressor) 25 mg PO Q12H [facility] Pneumococcal Polyvalent Vaccine (Pneumovax 23 Vaccine) 0.5 ml IM .ONCE ONE Stop: 12/22/17 10:01 - Labs Labs: 12/21/17 06:21 12/21/17 06:21 PT 11.6 SECONDS (9.7-12.2) 12/19/17 11:00 INR 1.1 12/19/17 11:00 APTT 36 SECONDS (21-34) H 12/19/17 11:00 - Constitutional Appears: Well - Head Exam Head Exam: ATRAUMATIC, NORMAL INSPECTION, NORMOCEPHALIC - Eye Exam Eye Exam: EOMI, Normal appearance, PERRL Pupil Exam: NORMAL ACCOMODATION, PERRL - ENT Exam ENT Exam: Mucous Membranes Moist, Normal Exam - Neck Exam Neck Exam: Full ROM, Normal Inspection. absent: Lymphadenopathy - Respiratory Exam Respiratory Exam: Decreased Breath Sounds - Cardiovascular Exam Cardiovascular Exam: REGULAR RHYTHM, +S1, +S2 - GI/Abdominal Exam GI & Abdominal Exam: Soft, Diminished Bowel Sounds - Rectal Exam Rectal Exam: Deferred Assessment and Plan (1) HTN (hypertension) Status: Acute (2) SVT (supraventricular tachycardia) Status: Acute (3) Troponin I above reference range Status: Acute (4) Migraine Status: Acute - Assessment and Plan (Free Text) Plan: d/w hospitalist and astronomy department chair further mx care to taken by hospitalist.
--- NOTE | 2017-12-21 19:11 | CP.PCM.PN ---
Subjective - Date & Time of Evaluation Date of Evaluation: 12/21/17 Time of Evaluation: 17:45 - Subjective Subjective: PLEASE NOTE THAT CARE OF THIS PATIENT WAS TRANSFERRED OVER TO THE HOSPITALIST SERVICE FROM DR. ANTHONY VARGAS'S CARE. HE ADMITTED THE PATIENT ON 12/19/17 AND THEN DISCOVERED THE PATIENT DID NOT HAVE INSURANCE ON 12/21/17 AND THEREFORE PATIENT'S CARE WILL BE TAKEN OVER BY THE HOSPITALIST'S SERVICE. 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 Because of this she was brought to [facility] ER where she was found to be in SVT. Adenosine administration was tried but this was not successful. Therefore synchronized cardioversion with 120 J was attempted and was successful at converting the patient back to normal sinus rhythm. She is currently being in monitored in the ICU and will be transferred to the Telemetry floor once a bed is available. Please see Assessment and Plans below for further details. Currently upon ROS: NO chest pain NO palpitations NO SOB NO dizziness/lightheadedness NO abdominal pain NO n/v/d/c: normal nonbloody bowel movements NO buring/pain with urination NO new changes in vision/loss of vision NO new changes in hearing/loss of hearing/tinnitus NO edema NO paresthesias (+) SIGALA bifrontal earlier today NO other complaints upon FULL ROS Exam: General: AAOX3, NAD HEENT: NCA, EOMI, PERRLA,, NO cervical/supraclavicular/submandibular lymphadenopathy, NO pharyngeal erythema/exudate, Nasal Turbinates are nonerythematous/nonedematous, Oral Mucosa is moist, NO thyromegaly Cardio: NS1 and NS2, NO M/R/G Resp: CTA B/L NO R/R/W GI: BSx4, Soft, NT, NO HSM, NO guarding/rebound tenderness Ext: Pulses are strong and equal, Capillary Refill is 2 seconds, NO edema, Fingers and Toes Bilaterally are normal color/warm Neuro: CN II through XII are grossly intact Assessment and Plan: 1). SVT Please see HPI above Metoprolol Tartrate 25 mg PO Q12H Echocardiogram shows EF of 70%, mild mitral and tricuspid regurgitation, mild pulmonary HTN, LVSF is normal EKG 12/20/17 shows RBBB at 59 bpm Lexiscan Stress Test done morning 12/21/17 and awaiting official report. Preliminary shows NO arrhythmia, positive for ST depression TSH, T4 are normal UDS is negative F/U further recommendations from Cardiology Dr. Moreno 2). Elevated Troponin This is likely secondary to the Cardioversion 3). HTN HCTZ 12.5 mg pO 1x/day Losartan 50 mg PO 1x/day Metoprolol Tartrate 25 mg PO Q12H 4). 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 Prophylaxis Tylenol 650 mg PO Q6H PRN Moderate Pain Pepcid 20 mg PO 1x/day Heparin 5,000 Units SC Q8H Disposition: patient is in Sinus Rhythm and will need cardiac clearance for discharge Mikhail Vargas D.O. Objective - Vital Signs/Intake and Output Vital Signs (last 24 hours): Temp Pulse Resp BP Pulse Ox 98.2 F 53 L 18 95/56 L 95 12/21/17 16:00 12/21/17 17:01 12/21/17 17:01 12/21/17 17:01 12/21/17 16:01 Intake and Output: 12/21/17 12/22/17 18:59 06:59 Intake Total 900 Balance 900 - Medications Medications: Current Medications Acetaminophen (Tylenol 325mg Tab) 650 mg PO Q6 PRN PRN Reason: Pain, moderate (4-7) Last Admin: 12/20/17 23:38 Dose: 650 mg Aspirin (Aspirin Chewable) 81 mg PO DAILY [facility] Last Admin: 12/21/17 09:30 Dose: 81 mg Famotidine (Pepcid) 20 mg PO DAILY [facility] Last Admin: 12/21/17 09:30 Dose: 20 mg Heparin Sodium (Porcine) (Heparin) 5,000 units SC Q8 [facility] Last Admin: 12/21/17 14:07 Dose: 5,000 units Hydrochlorothiazide (Microzide) 12.5 mg PO DAILY [facility] Last Admin: 12/21/17 09:30 Dose: 12.5 mg Losartan Potassium (Cozaar) 50 mg PO DAILY [facility] Last Admin: 12/21/17 09:30 Dose: 50 mg Metoprolol Tartrate (Lopressor) 25 mg PO Q12H [facility] Pneumococcal Polyvalent Vaccine (Pneumovax 23 Vaccine) 0.5 ml IM .ONCE ONE Stop: 12/22/17 10:01 Rosuvastatin Calcium (Crestor) 5 mg PO HS [facility] - Labs Labs: 12/21/17 06:21 12/21/17 06:21 PT 11.6 SECONDS (9.7-12.2) 12/19/17 11:00 INR 1.1 12/19/17 11:00 APTT 36 SECONDS (21-34) H 12/19/17 11:00
[2017-12-22 06:10] LABS: BASO % 0.6 % (0.0-2.0); EOS # 0.1 K/uL (0.0-0.7); EOS % 1.4 % (0.0-4.0); HEMOGLOBIN 13.6 g/dL (11.0-16.0); LYMPH % 26.7 % (20.0-40.0); MEAN CELL VOLUME 84.7 fL (81.0-99.0); MEAN CORPUSCULAR HGB CONC 35.4 g/dL (33.0-37.0); MEAN PLATELET VOLUME 8.2 fL (7.2-11.7); MONO # 0.6 K/uL (0.0-0.8); MONO % 8.3 % (0.0-10.0); NEUT # 4.8 K/uL (1.8-7.0); RBC 4.53 Mil/uL (3.80-5.20); RED CELL DISTRIBUTION WIDTH 13.4 % (11.5-14.5); WHITE BLOOD COUNT 7.6 K/uL (4.8-10.8)
[2017-12-22 06:35] LABS: ALB/GLOB RATIO 1.2 (1.0-2.1); ALT/SGPT 40 U/L (9-52); AST/SGOT 37 U/L (14-36); BLOOD UREA NITROGEN 13 mg/dL (7-17); CALCIUM 8.9 mg/dl (8.6-10.4); GFR AFRICAN-AMERICAN > 60; GFR NON-AFRICAN AMERICAN > 60
--- NOTE | 2017-12-22 09:27 | CP.PCM.PN ---
Subjective - Date & Time of Evaluation Date of Evaluation: 12/22/17 Time of Evaluation: 08:00 - Subjective Subjective: Alphonso Dye, PGY1 Cardiology Progress Note for Dr. Moreno Patient was seen and examined at bedside this morning. Patient is Tajik speaking, certified court interpreter service used. Denies chest pain, shortness of breath, abdominal pain, lightheadedness, dizziness, n/v/d. Patient was explained the results of her stress test yesterday: partially reversible inferolateral wall defect. Patient was also explained that she needs left heart cath today. Patient verbalized consent for the procedure. ICU and nursing staff notified. Pending cardiac cath at 11 am this morning. A Full 12 point ROS was conducted and unremarkable except as stated above. Objective - Vital Signs/Intake and Output Vital Signs (last 24 hours): Temp Pulse Resp BP Pulse Ox 98.2 F 52 L 18 122/68 94 L 12/22/17 04:00 12/22/17 04:00 12/22/17 04:00 12/22/17 04:00 12/22/17 04:00 Intake and Output: 12/22/17 12/22/17 06:59 18:59 Intake Total 50 Balance 50 - Medications Medications: Current Medications Acetaminophen (Tylenol 325mg Tab) 650 mg PO Q6 PRN PRN Reason: Pain, moderate (4-7) Last Admin: 12/20/17 23:38 Dose: 650 mg Aspirin (Aspirin Chewable) 81 mg PO DAILY [facility] Last Admin: 12/21/17 09:30 Dose: 81 mg Famotidine (Pepcid) 20 mg PO DAILY [facility] Last Admin: 12/21/17 09:30 Dose: 20 mg Heparin Sodium (Porcine) (Heparin) 5,000 units SC Q8 [facility] Last Admin: 12/22/17 06:04 Dose: 5,000 units Hydrochlorothiazide (Microzide) 12.5 mg PO DAILY [facility] Last Admin: 12/21/17 09:30 Dose: 12.5 mg Losartan Potassium (Cozaar) 50 mg PO DAILY [facility] Last Admin: 12/21/17 09:30 Dose: 50 mg Metoprolol Tartrate (Lopressor) 25 mg PO Q12H [facility] Last Admin: 12/21/17 21:26 Dose: Not Given Pneumococcal Polyvalent Vaccine (Pneumovax 23 Vaccine) 0.5 ml IM .ONCE ONE Stop: 12/22/17 10:01 Rosuvastatin Calcium (Crestor) 5 mg PO HS [facility] Last Admin: 12/21/17 21:22 Dose: 5 mg - Labs Labs: 12/22/17 06:00 12/22/17 06:00 PT 11.6 SECONDS (9.7-12.2) 12/19/17 11:00 INR 1.1 12/19/17 11:00 APTT 36 SECONDS (21-34) H 12/19/17 11:00 - Constitutional Appears: Well - Head Exam Head Exam: ATRAUMATIC, NORMAL INSPECTION, NORMOCEPHALIC - Eye Exam Eye Exam: EOMI, Normal appearance, PERRL - ENT Exam ENT Exam: Mucous Membranes Moist, Normal Exam - Neck Exam Neck Exam: Full ROM, Normal Inspection - Respiratory Exam Respiratory Exam: Clear to Ausculation Bilateral. absent: Accessory Muscle Use , Chest Wall Tenderness, Decreased Breath Sounds, Rales, Rhonchi, Wheezes, Respiratory Distress, Stridor - Cardiovascular Exam Cardiovascular Exam: RRR, +S1, +S2. absent: Murmur - GI/Abdominal Exam GI & Abdominal Exam: Soft, Normal Bowel Sounds. absent: Distended, Guarding, Rigid, Tenderness, Organomegaly, Rebound - Extremities Exam Extremities Exam: Full ROM, Normal Capillary Refill, Normal Inspection. absent : Calf Tenderness, Joint Swelling, Pedal Edema, Tenderness - Neurological Exam Neurological Exam: Alert, Awake, Normal Gait, Oriented x3 Neuro motor strength exam: Left Upper Extremity: 5, Right Upper Extremity: 5, Left Lower Extremity: 5, Right Lower Extremity: 5 - Skin Skin Exam: Dry, Intact, Normal Color, Warm. absent: Diaphoretic Assessment and Plan - Assessment and Plan (Free Text) Assessment: Patient is a 57 y/o F with PMHx of HTN, migraines, prior CVA (1997) who presented to the ED for chest pain, palpitations, shortness of breath, and dizziness during [employer] class. Upon arrival, patient found to be in SVT in the ED , refractory to adenosine. Cardioversion was done and patient converted back to NSR with HRs in 40s, resolving to HR 70s. Patient transferred to ICU for management. Cardiology was consulted for chest pain and SVT. Patient received ECHO and Lexiscan. Troponins elevated (5.26, 2.34) likely secondary to cardioversion. Utox negative. Patient has been asymptomatic, vital signs stable , and doing well in the ICU. Results of the patient's stress test indicated partially reversible inferolateral wall defect with ST changes. Patient is pending left heart cath this morning. Plan: SVT - Lexiscan: partially reversible inferolateral wall defect (see full report) - Pending Cardiac Cath today (12/22); patient verbalized consent - c/w metoprolol 25 mg PO q12 for SVT prevention - Denying chest pain, shortness of breath, diaphoresis, palpitations on interview - Initial EKG: rate 240 bpm, RBBB morphology but with narrow R waves; following cardioversion: NSR @61, R axis deviation, incomplete RBBB. Elevated Troponins - Trend: 5.26 to 2.34; likely 2/2 cardioversion - ECHO (12/19): EF 75%. Normal LV systolic function. No AR. Mild MR, TR, and mild Pulm HTN. - CXR: negative for acute pulmonary pathology. HTN - c/w home meds - Currently normotensive - Maintain MAP > 65 GI ppx: Pepcid DVT ppx: Hep SC Dispo: Patient will undergo cardiac cath today at 11 am. Case was discussed and reviewed with Biological Lab Technician Dr. Moreno. Please see any further recommendations as per Dr. Moreno.
[2017-12-22] MEDS ORDERED: Pneumococcal 23-Valent Vaccine IM ONE (10:00)
--- NOTE | 2017-12-22 17:23 | CP.PCM.PN ---
Subjective - Date & Time of Evaluation Date of Evaluation: 12/22/17 Time of Evaluation: 12:45 - Subjective Subjective: PGY-1 Snehal Gong D.O. Medicine progress note for Dr. Mikhail Irizarry's service: Patient seen and examined. She is not in acute distress. She denies chest pain and palpitations. She is in normal sinus rhythm, HR 70. Objective - Vital Signs/Intake and Output Vital Signs (last 24 hours): Temp Pulse Resp BP Pulse Ox 98.5 F 59 L 18 115/71 98 12/22/17 12:00 12/22/17 12:00 12/22/17 12:00 12/22/17 12:00 12/22/17 12:00 Intake and Output: 12/22/17 12/22/17 06:59 18:59 Intake Total 50 0 Balance 50 0 - Medications Medications: Current Medications Acetaminophen (Tylenol 325mg Tab) 650 mg PO Q6 PRN PRN Reason: Pain, moderate (4-7) Last Admin: 12/20/17 23:38 Dose: 650 mg Aspirin (Aspirin Chewable) 81 mg PO DAILY [facility] Last Admin: 12/22/17 10:00 Dose: Not Given Famotidine (Pepcid) 20 mg PO DAILY [facility] Last Admin: 12/22/17 10:00 Dose: Not Given Heparin Sodium (Porcine) (Heparin) 5,000 units SC Q8 [facility] Last Admin: 12/22/17 10:00 Dose: Not Given Hydrochlorothiazide (Microzide) 12.5 mg PO DAILY [facility] Last Admin: 12/22/17 10:00 Dose: Not Given Losartan Potassium (Cozaar) 50 mg PO DAILY [facility] Last Admin: 12/22/17 10:00 Dose: Not Given Metoprolol Tartrate (Lopressor) 25 mg PO Q12H [facility] Last Admin: 12/22/17 10:00 Dose: Not Given Rosuvastatin Calcium (Crestor) 5 mg PO HS [facility] Last Admin: 12/21/17 21:22 Dose: 5 mg - Labs Labs: 12/22/17 06:00 12/22/17 06:00 PT 11.6 SECONDS (9.7-12.2) 12/19/17 11:00 INR 1.1 12/19/17 11:00 APTT 36 SECONDS (21-34) H 12/19/17 11:00 - Constitutional Appears: Well, No Acute Distress - Head Exam Head Exam: ATRAUMATIC, NORMAL INSPECTION, NORMOCEPHALIC - Eye Exam Eye Exam: EOMI, Normal appearance - ENT Exam ENT Exam: Mucous Membranes Moist, Normal Exam - Neck Exam Neck Exam: Normal Inspection - Respiratory Exam Respiratory Exam: Clear to Ausculation Bilateral, NORMAL BREATHING PATTERN - Cardiovascular Exam Cardiovascular Exam: REGULAR RHYTHM, +S1, +S2 - GI/Abdominal Exam GI & Abdominal Exam: Soft, Normal Bowel Sounds. absent: Tenderness - Rectal Exam Rectal Exam: Deferred - Extremities Exam Extremities Exam: Normal Inspection - Back Exam Back Exam: NORMAL INSPECTION - Neurological Exam Neurological Exam: Alert, Awake, CN II-XII Intact, Normal Gait, Oriented x3 - Psychiatric Exam Psychiatric exam: Normal Affect, Normal Mood - Skin Skin Exam: Dry, Intact, Normal Color, Warm Assessment and Plan - Assessment and Plan (Free Text) Assessment: Patient is a 57 yo female patient who presented with chest pain, palpitations, and SOB after exercising. She was found to be in SVT (HR 240). Adenosine failed to convert her. She was then converted to sinus rhythm with 120J. She was in the ICU for 2 days. Plan: SVT, acute, resolved - Metoprolol Tartrate 25 mg PO Q12H - Echocardiogram shows EF of 70%, mild mitral and tricuspid regurgitation, mild pulmonary HTN, LVSF is normal - EKG 12/20/17 shows RBBB at 59 bpm - Lexiscan Stress Test done morning 12/20/17 and awaiting official report. Preliminary shows NO arrhythmia, positive for ST depression - TSH, T4 are normal - UDS is negative - Cardiology consulted (Dr. 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
[2017-12-22] MEDS ORDERED: Midazolam 2 MG/2 ML VIAL ONE ×2 (18:54→19:16)
[2017-12-22] MEDS: Sodium Chloride 0.9% 1,000 ML IV SCH (20:16)
[2017-12-23 06:07] VITALS: RESP 16
[2017-12-23 06:27] LABS: BASO % 0.6 % (0.0-2.0); EOS # 0.1 K/uL (0.0-0.7); EOS % 1.8 % (0.0-4.0); HEMOGLOBIN 13.6 g/dL (11.0-16.0); LYMPH # 2.2 K/uL (1.0-4.3); LYMPH % 33.4 % (20.0-40.0); MEAN CELL VOLUME 85.3 fL (81.0-99.0); MEAN CORPUSCULAR HEMOGLOBIN 29.7 pg (27.0-31.0); MEAN CORPUSCULAR HGB CONC 34.8 g/dL (33.0-37.0); MEAN PLATELET VOLUME 8.4 fL (7.2-11.7); MONO # 0.5 K/uL (0.0-0.8); MONO % 7.8 % (0.0-10.0); NEUT # 3.6 K/uL (1.8-7.0); NEUT % 56.4 % (50.0-75.0); NRBC % 0.3 % (0.0-2.0); RBC 4.58 Mil/uL (3.80-5.20); RED CELL DISTRIBUTION WIDTH 13.2 % (11.5-14.5); WHITE BLOOD COUNT 6.5 K/uL (4.8-10.8)
[2017-12-23 06:43] LABS: ALB/GLOB RATIO 1.4 (1.0-2.1); ALT/SGPT 44 U/L (9-52); AST/SGOT 37 U/L (14-36); BLOOD UREA NITROGEN 14 mg/dL (7-17); CALCIUM 8.9 mg/dl (8.6-10.4); GFR AFRICAN-AMERICAN > 60; GFR NON-AFRICAN AMERICAN > 60
--- NOTE | 2017-12-23 06:50 | CARDCATH ---
Copied To: Alexander Moreno MD Attending MD: Alexander Moreno MD PROCEDURE DATE: 12/22/2017 INDICATIONS: Alissa Scanlon is a 57-year-old female who presented with an episode of chest pain and palpitations while she was doing [place]. The patient on initial presentation was noted to have SVT with a heart rate of 160 for which she initially adenosine was given. Subsequently, she reverted back and was becoming hypotensive for which she was given cardioversion. The patient then underwent a nuclear stress test which showed mild atrial septal defect. Therefore, she was brought to the crime lab technician for further evaluation and treatment. PROCEDURES PERFORMED: Left heart catheterization with selective left and right coronary angiogram via right radial approach, 8-Liberian right radial arterial access, and wristband for hemostasis. TECHNIQUES OF PROCEDURE: After obtaining informed consent, the patient was brought to the cardiac cath suite in post-absorptive and nonsedated state. The patient was prepped and draped in the usual sterile fashion. Lidocaine 2% was used for infiltration of anesthesia. Using modified Seldinger technique, a 6-Liberian sheath was introduced into the right radial artery. Subsequently over J-wire, JR4 and JL4 diagnostic catheters were used to engage right and left coronary arteries. Angiograms were obtained in different orthogonal views. JR4 diagnostic catheter was used to cross the aortic valve, and LV gram was obtained in the RODRIGUEZ view. Hemodynamics were obtained and pullback gradients were noted. HEMODYNAMIC FINDINGS: Left ventricular end-diastolic pressure was 10 mmHg. There was no gradient noted upon the aortic valve pullback. There was no AI and no MR. Left ventricular ejection fraction was estimated to be 60% to 65%. CORONARY ANATOMY: Left main is a large sized vessel, bifurcates into LAD and circumflex. The left circumflex runs in the AV groove, continues as obtuse marginal branch. LAD is a dual-headed system, gives off a large septal field sales representative, free of any luminal disease and mild nonobstructive disease, 0% proximal and distal stenosis. Diagonal has 20% stenosis. stenosis. RCA is a large-sized vessel, gives off PDA and PLV branches. Proximal and distal RCA has 0% stenosis. Ejection fraction is 55%. IMPRESSION: Nonobstructive coronary artery disease, normal left ventricular ejection fraction. RECOMMENDATIONS: Continue aggressive medical management and risk factor modification. The patient can be discharged home in the morning. Alexander Moreno MD
[2017-12-23 09:54] VITALS: BP 110/57
[2017-12-23] MEDS: Sodium Chloride 0.9% 1,000 ML IV SCH (09:56)
[2017-12-23 10:59] VITALS: PULSE 70; TEMP 98.6; O2SAT 97
--- NOTE | 2017-12-23 11:58 | CP.PCM.PN ---
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 Because of this she was brought to [facility] ER where she was found to be in SVT. Adenosine administration was tried but this was not successful. Therefore synchronized cardioversion with 120 J was attempted and was successful at converting the patient back to normal sinus rhythm. She underwent Cardiac Catheterization with Dr. Moreno on 12/22/17 and RCA was found to have 50% disease. She will be continued on beta jac, danielito/hctz, full dose asa, and statin and she will follow up with Dr. Moreno during the week of 12/25/17. Please see Assessment and Plans below for further details. Currently upon ROS: NO chest pain NO palpitations NO SOB NO dizziness/lightheadedness NO abdominal pain NO n/v/d/c: normal nonbloody bowel movements NO buring/pain with urination NO new changes in vision/loss of vision NO new changes in hearing/loss of hearing/tinnitus NO edema NO paresthesias (+) SIGALA bifrontal earlier today NO other complaints upon FULL ROS Exam: General: AAOX3, NAD HEENT: NCA, EOMI, PERRLA,, NO cervical/supraclavicular/submandibular lymphadenopathy, NO pharyngeal erythema/exudate, Nasal Turbinates are nonerythematous/nonedematous, Oral Mucosa is moist, NO thyromegaly Cardio: NS1 and NS2, NO M/R/G Resp: CTA B/L NO R/R/W GI: BSx4, Soft, NT, NO HSM, NO guarding/rebound tenderness Ext: Pulses are strong and equal, Capillary Refill is 2 seconds, NO edema, Fingers and Toes Bilaterally are normal color/warm Neuro: CN II through XII are grossly intact Assessment and Plan: 1). SVT Please see HPI above Metoprolol Tartrate 25 mg PO Q12H Echocardiogram shows EF of 70%, mild mitral and tricuspid regurgitation, mild pulmonary HTN, LVSF is normal EKG 12/20/17 shows RBBB at 59 bpm Lexiscan Stress Test done morning 12/21/17: Preliminary shows NO arrhythmia, positive for ST depression Cardiac Catheterization done 12/22/17: RCA 50% disease as per my conversation with Dr. Moreno TSH, T4 are normal UDS is negative Cardiology Dr. Moreno 2). Elevated Troponin This is likely secondary to the Cardioversion 3). HTN HCTZ 12.5 mg pO 1x/day Losartan 50 mg PO 1x/day Metoprolol Tartrate 25 mg PO Q12H 4). 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 Prophylaxis Tylenol 650 mg PO Q6H PRN Moderate Pain Pepcid 20 mg PO 1x/day Heparin 5,000 Units SC Q8H Spoke with Dr. Moreno on 12/23/17 and patient is stable for discharge and went over medications. Patient understands to schedule an appointment with Dr. Moreno during week of . She also understands to follow up with her Primary Care Physician Dr. Johnson for further coordination of her health care. The following instructions will need to be provided to patient in Ukrainian upon discharge: 1). Call the office of Director Search Dr. Moreno on Monday12/25/17 by calling to schedule an appointment with him to take place in 5 days. 2). Schedule an appointment with your primary care physician Dr. Shaik Johnson to take place in 7 to 10 days by calling [phone] for further coordination of your health care. 3). Please have the following prescriptions filled at your pharmacy on your way home from the hospital and use as directed: Aspirin 325 mg, 1 tablet by mouth 1 time a day (8 AM), Dispense #30, NO refills HCTZ 12.5 mg, 1 tablet by mouth 1 time a day (2 PM), Dispense #30, NO refills Losartan 50 mg, 1 tablet by mouth 1 time a day (2 PM), Dispense #30, NO refills Metoprolol 25 mg, 1 tablet by mouth 2 times a day (8 AM and 8 PM), Dispense #60 , NO refills Atorvastatin 10 mg, 1 tablet by mouth 1 time a day (8 PM), Dispense #30, NO refills 4). Please do NOT exercise until you are cleared to do so by Dr. Moreno. 5). Please take care and be well. David Arredondo D.O. Objective - Vital Signs/Intake and Output Vital Signs (last 24 hours): Temp Pulse Resp BP Pulse Ox 98.6 F 70 16 110/57 L 97 12/23/17 08:00 12/23/17 08:00 12/23/17 08:00 12/23/17 09:52 12/23/17 08:00 Intake and Output: 12/23/17 12/23/17 06:59 18:59 Intake Total 525 500 Output Total 400 Balance 125 500 - Medications Medications: Current Medications Acetaminophen (Tylenol 325mg Tab) 650 mg PO Q6 PRN PRN Reason: Pain, moderate (4-7) Last Admin: 12/20/17 23:38 Dose: 650 mg Aspirin (Aspirin Chewable) 81 mg PO DAILY [facility] Last Admin: 12/23/17 09:51 Dose: 81 mg Famotidine (Pepcid) 20 mg PO DAILY [facility] Last Admin: 12/23/17 09:51 Dose: 20 mg Heparin Sodium (Porcine) (Heparin) 5,000 units SC Q8 [facility] Last Admin: 12/23/17 05:34 Dose: 5,000 units Hydrochlorothiazide (Microzide) 12.5 mg PO DAILY [facility] Last Admin: 12/23/17 09:51 Dose: 12.5 mg Sodium Chloride (Sodium Chloride 0.9%) 1,000 mls @ 75 mls/hr IV .[id number] [facility] Last Admin: 12/23/17 09:56 Dose: 75 mls/hr Losartan Potassium (Cozaar) 50 mg PO DAILY [facility] Last Admin: 12/22/17 10:00 Dose: Not Given Metoprolol Tartrate (Lopressor) 25 mg PO Q12H [facility] Last Admin: 12/23/17 09:52 Dose: 25 mg Rosuvastatin Calcium (Crestor) 5 mg PO HS [facility] Last Admin: 12/22/17 20:59 Dose: 5 mg - Labs Labs: 12/23/17 06:21 12/23/17 06:17 PT 11.6 SECONDS (9.7-12.2) 12/19/17 11:00 INR 1.1 12/19/17 11:00 APTT 36 SECONDS (21-34) H 12/19/17 11:00
--- NOTE | 2017-12-23 12:27 | CP.PCM.DIS ---
Provider - Provider Date of Admission: 12/19/17 11:49 Attending physician: Mikhail Irizarry MD Consults: Dr. Scooby Moreno, Cardiology Dr. George Carbajal (Pulm/ Critical Care) Time Spent in preparation of Discharge (in minutes): 44 Diagnosis - Discharge Diagnosis (1) SVT (supraventricular tachycardia) Status: Acute (2) Troponin I above reference range Status: Acute (3) HTN (hypertension) Status: Chronic (4) History of CVA (cerebrovascular accident) Status: Resolved Hospital Course - Lab Results Lab Results: Micro Results 12/19/17 12:57 Naris MRSA Culture (Admit) - Final MRSA NOT DETECTED Most Recent Lab Values WBC 6.5 K/uL (4.8-10.8) 12/23/17 06:21 RBC 4.58 Mil/uL (3.80-5.20) 12/23/17 06:21 Hgb 13.6 g/dL (11.0-16.0) 12/23/17 06:21 Hct 39.0 % (34.0-47.0) 12/23/17 06:21 MCV 85.3 fL (81.0-99.0) 12/23/17 06:21 MCH 29.7 pg (27.0-31.0) 12/23/17 06:21 MCHC 34.8 g/dL (33.0-37.0) 12/23/17 06:21 RDW 13.2 % (11.5-14.5) 12/23/17 06:21 Plt Count 290 K/uL (130-400) 12/23/17 06:21 MPV 8.4 fL (7.2-11.7) 12/23/17 06:21 Neut % (Auto) 56.4 % (50.0-75.0) 12/23/17 06:21 Lymph % (Auto) 33.4 % (20.0-40.0) 12/23/17 06:21 Ness % (Auto) 7.8 % (0.0-10.0) 12/23/17 06:21 Eos % (Auto) 1.8 % (0.0-4.0) 12/23/17 06:21 Baso % (Auto) 0.6 % (0.0-2.0) 12/23/17 06:21 Neut # (Auto) 3.6 K/uL (1.8-7.0) 12/23/17 06:21 Lymph # (Auto) 2.2 K/uL (1.0-4.3) 12/23/17 06:21 Ness # (Auto) 0.5 K/uL (0.0-0.8) 12/23/17 06:21 Eos # (Auto) 0.1 K/uL (0.0-0.7) 12/23/17 06:21 Baso # (Auto) 0.0 K/uL (0.0-0.2) 12/23/17 06:21 PT 11.6 SECONDS (9.7-12.2) 12/19/17 11:00 INR 1.1 12/19/17 11:00 APTT 36 SECONDS (21-34) H 12/19/17 11:00 D-Dimer, Quantitative < 200 ng/mlDDU (0-243) 12/19/17 12:24 Puncture Site Rra 12/19/17 14:03 pCO2 43 mm/Hg (35-45) 12/19/17 14:03 pO2 108 mm/Hg (80-100) H 12/19/17 14:03 HCO3 21.0 mmol/L (21-28) 12/19/17 14:03 ABG pH 7.30 (7.35-7.45) L 12/19/17 14:03 ABG Total CO2 22.5 mmol/L (22-28) 12/19/17 14:03 ABG O2 Saturation 100.3 % (95-98) H 12/19/17 14:03 ABG Base Excess -5.1 mmol/L (-2.0-3.0) L 12/19/17 14:03 Seferino Test Pos 12/19/17 14:03 ABG Potassium 3.9 mmol/L (3.6-5.2) 12/19/17 14:03 A-a O2 Difference 38.0 mm/Hg 12/19/17 14:03 Respiratory Index 0.4 12/19/17 14:03 Sodium 140.0 mmol/l (132-148) 12/19/17 14:03 Chloride 112.0 mmol/L (98-107) H 12/19/17 14:03 Glucose 134 mg/dl (65-105) H 12/19/17 14:03 Lactate 2.0 mmol/L (0.7-2.1) 12/19/17 14:03 Liter Flow 2.0 12/19/17 14:03 FiO2 28.0 % 12/19/17 14:03 Sodium 141 mmol/L (132-148) 12/23/17 06:17 Potassium 4.1 mmol/L (3.6-5.2) 12/23/17 06:17 Chloride 105 mmol/L (98-107) 12/23/17 06:17 Carbon Dioxide 23 mmol/L (22-30) 12/23/17 06:17 Anion Gap 17 (10-20) 12/23/17 06:17 BUN 14 mg/dL (7-17) 12/23/17 06:17 Creatinine 0.6 mg/dL (0.7-1.2) L 12/23/17 06:17 Est GFR ( Amer) > 60 12/23/17 06:17 Est GFR (Non-Af Amer) > 60 12/23/17 06:17 Random Glucose 82 mg/dL (65-105) 12/23/17 06:17 Hemoglobin A1c 5.5 % (4.2-6.5) 12/19/17 12:24 Calcium 8.9 mg/dl (8.6-10.4) 12/23/17 06:17 Phosphorus 4.7 mg/dL (2.5-4.5) H 12/23/17 06:17 Magnesium 1.9 mg/dL (1.6-2.3) 12/23/17 06:17 Total Bilirubin 0.5 mg/dL (0.2-1.3) 12/23/17 06:17 AST 37 U/L (14-36) H 12/23/17 06:17 ALT 44 U/L (9-52) 12/23/17 06:17 Alkaline Phosphatase 109 U/L (38-126) 12/23/17 06:17 Total Creatine Kinase 154 U/L (30-135) H 12/20/17 06:25 CK-MB (Mass) 10.9 ng/mL (0.0-3.38) H 12/20/17 06:25 Troponin I 2.3400 ng/mL (0.00-0.120) H* 12/20/17 06:25 Total Protein 6.9 g/dL (6.3-8.3) 12/23/17 06:17 Albumin 4.0 g/dL (3.5-5.0) 12/23/17 06:17 Globulin 2.9 gm/dL (2.2-3.9) 12/23/17 06:17 Albumin/Globulin Ratio 1.4 (1.0-2.1) 12/23/17 06:17 Triglycerides 164 mg/dL (0-149) H 12/19/17 12:55 Cholesterol 184 mg/dL (0-199) 12/19/17 12:55 LDL Cholesterol Direct 106 mg/dL (0-129) 12/19/17 12:55 HDL Cholesterol 30 mg/dL (30-70) 12/19/17 12:55 Free T4 1.41 ng/dL (0.78-2.19) 12/19/17 12:24 TSH 3rd Generation 0.63 mIU/L (0.46-4.68) 12/19/17 12:55 Arterial Blood Potassium 3.9 mmol/L (3.6-5.2) 12/19/17 14:03 Urine HCG, Qual Negative (NEGATIVE) 12/22/17 11:25 Urine Opiates Screen Negative (NEGATIVE) 12/19/17 15:01 Urine Methadone Screen Negative (NEGATIVE) 12/19/17 15:01 Ur Barbiturates Screen Negative (NEGATIVE) 12/19/17 15:01 Ur Phencyclidine Scrn Negative (NEGATIVE) 12/19/17 15:01 Ur Amphetamines Screen Negative (NEGATIVE) 12/19/17 15:01 U Benzodiazepines Scrn Negative (NEGATIVE) 12/19/17 15:01 U Oth Cocaine Metabols Negative (NEGATIVE) 12/19/17 15:01 U Cannabinoids Screen Negative (NEGATIVE) 12/19/17 15:01 Blood Type O POSITIVE 12/19/17 10:45 Antibody Screen Negative 12/19/17 10:45 - Hospital Course Hospital Course: On admission: Patient is a 57 year old female with PMHx of hypertension and 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 Patient presented to ED for chest pain, palpitations and shortness of breath that began while at [employer] [facility]. Patient noted to be in SVT in ED refractory to adenosine. Synchronized cardioversion was performed at 120 J after which patient converted to sinus rhythm. ICU consulted for cardiovascular monitoring. Patient denies current chest pain, shortness of breath, nausea, vomiting, abdominal pain, diarrhea, dizziness, focal weakness. Hospital Course: Patient admitted to hospital. Adenosine administration was tried but this was not successful. Therefore synchronized cardioversion with 120 J was attempted and was successful at converting the patient back to normal sinus rhythm. Pt underwent Cardiac Catheterization with Dr. Moreno on 12/22/17 and RCA was found to have 50% disease. She will be continued on beta jac, danielito/hctz, full dose asa, and statin and she will follow up with Dr. Moreno during the week of . DC Instructions The following instructions will need to be provided to patient in [place] upon discharge: 1). Call the office of Fixture [employer] Dr. Moreno on Monday12/25/17 by calling to schedule an appointment with him to take place in 5 days. 2). Schedule an appointment with your primary care physician Dr. Shaik Johnson to take place in 7 to 10 days by calling [phone] for further coordination of your health care. 3). Please have the following prescriptions filled at your pharmacy on your way home from the hospital and use as directed: Aspirin 325 mg, 1 tablet by mouth 1 time a day (8 AM), Dispense #30, NO refills HCTZ 12.5 mg, 1 tablet by mouth 1 time a day (2 PM), Dispense #30, NO refills Losartan 50 mg, 1 tablet by mouth 1 time a day (2 PM), Dispense #30, NO refills Metoprolol 25 mg, 1 tablet by mouth 2 times a day (8 AM and 8 PM), Dispense #60 , NO refills Atorvastatin 10 mg, 1 tablet by mouth 1 time a day (8 PM), Dispense #30, NO refills 4). Please do NOT exercise until you are cleared to do so by Dr. Moreno. 5). Please take care and be well. This is a brief summary of events. For a complete course, refer to the hospital record. Discharge Exam - Head Exam Head Exam: ATRAUMATIC, NORMAL INSPECTION, NORMOCEPHALIC - Eye Exam Eye Exam: EOMI, Normal appearance, PERRL Pupil Exam: NORMAL ACCOMODATION - ENT Exam ENT Exam: Normal Oropharynx - Respiratory Exam Respiratory Exam: Clear to PA & Lateral, NORMAL BREATHING PATTERN. absent: Rales, Rhonchi, Wheezes - Cardiovascular Exam Cardiovascular Exam: +S1, +S2. absent: Rubs, Systolic Murmur - GI/Abdominal Exam GI & Abdominal Exam: Normal Bowel Sounds, Soft. absent: Rebound, Rigid, Tenderness - Extremities Exam Extremities exam: normal capillary refill, pedal pulses present - Back Exam Back exam: FULL ROM - Neurological Exam Neurological exam: Alert, Oriented x3 - Psychiatric Exam Psychiatric exam: Normal Affect, Normal Mood Discharge Plan - Discharge Medications Prescriptions: Aspirin [Aspirin Chewable] 325 mg PO DAILY #30 chew Atorvastatin [Lipitor] 10 mg PO DIN #30 tab hydroCHLOROthiazide [Microzide] 12.5 mg PO DAILY #30 cap Losartan [Cozaar] 50 mg PO DAILY #30 tab Metoprolol Tartrate [Lopressor] 25 mg PO Q12H #60 tab - Follow Up Plan Condition: GUARDED Disposition: HOME/ ROUTINE Instructions: Low Cholesterol, Saturated Fat, and Trans Fat Diet , Cardiac Catheterization (DC), Paroxysmal Supraventricular Tachycardia (DC), Tachycardia (DC) Additional Instructions: The following instructions will need to be provided to patient in [place] upon discharge: 1). Call the office of Fixture Maker Dr. Moreno on Monday12/25/17 by calling to schedule an appointment with him to take place in 5 days. 2). Schedule an appointment with your primary care physician Dr. Shaik Johnson to take place in 7 to 10 days by calling [phone] for further coordination of your health care. 3). Please have the following prescriptions filled at your pharmacy on your way home from the hospital and use as directed: Aspirin 325 mg, 1 tablet by mouth 1 time a day (8 AM), Dispense #30, NO refills HCTZ 12.5 mg, 1 tablet by mouth 1 time a day (2 PM), Dispense #30, NO refills Losartan 50 mg, 1 tablet by mouth 1 time a day (2 PM), Dispense #30, NO refills Metoprolol 25 mg, 1 tablet by mouth 2 times a day (8 AM and 8 PM), Dispense #60 , NO refills Atorvastatin 10 mg, 1 tablet by mouth 1 time a day (8 PM), Dispense #30, NO refills 4). Please do NOT exercise until you are cleared to do so by Dr. Moreno. 5). Please take care and be well.
--- NOTE | 2017-12-25 | CARD ---
APPROVED REPORT Date of service: 12/20/2017 EKG Measurement Heart [id number] <Conclusion> Sinus bradycardia with short NV Right bundle branch block Abnormal ECG
--- NOTE | 2017-12-25 00:26 | CARD ---
APPROVED REPORT Date of service: 12/20/2017 EKG Measurement Heart [id number] <Conclusion> Sinus rhythm with short DC Right bundle branch block Abnormal ECG
== END 2017-12-23 15:00 | disposition home or self-care (01) | DRG 287 ==
LOC: C.ER 10:33 → C.9I 11:49
PROVIDERS: ADMIT Family Medicine; ATTEND Family Medicine
PROC: 5A2204Z Restoration of Cardiac Rhythm, Single (ICD-10-PCS; principal; 2017-12-19)
PROC: 4A023N7 Measurement of Cardiac Sampling and Pressure, Left Heart, Percutaneous Approach (ICD-10-PCS; 2017-12-22)
PROC: B211YZZ Fluoroscopy of Multiple Coronary Arteries using Other Contrast (ICD-10-PCS; 2017-12-22)
PROC: B215YZZ Fluoroscopy of Left Heart using Other Contrast (ICD-10-PCS; 2017-12-22)
DX: I47.1 Supraventricular tachycardia (principal); Q21.1 Atrial septal defect; I45.10 Unspecified right bundle-branch block; I25.10 Atherosclerotic heart disease of native coronary artery without angina pectoris; I07.1 Rheumatic tricuspid insufficiency; I10 Essential (primary) hypertension; G43.909 Migraine, unspecified, not intractable, without status migrainosus; I27.20 Pulmonary hypertension, unspecified; I69.992 Facial weakness following unspecified cerebrovascular disease

== ENCOUNTER 2017-12-31 11:27 | Inpatient (IN) | payer MEDICAID, OTHER ==
[2017-12-31 11:37] VITALS: BMI 26.4
--- NOTE | 2017-12-31 12:38 | C.PDOC ---
History Of Present Illness 57 y/o F c PMHx SVT, HTN, cardiac stent p/w chest pain x 9 hours. Pain is R sided chest, radiating to back, intermittent, occurring more when walking and seeming to resolve with rest. Associated with intermittent shortness of breath. Patient states pain is the same character as when she was here about 1 week ago but without the severity of palpitations. Patient was here in this ED about 1 week ago and found to be in SVT, resolved with synchronized cardioversion, and subsequently stented during hospital stay. Patient has been taking all discharge medications as instructed. She denies fever, chills, cough, nausea, vomiting, diaphoresis, leg swelling. Time Seen by Provider: 12/31/17 12:17 Chief Complaint (Nursing): Chest Pain Past Medical History Vital Signs: Last Vital Signs Temp 98.3 F 12/31/17 11:37 Pulse 60 12/31/17 11:37 Resp 18 12/31/17 11:37 BP 148/91 H 12/31/17 11:37 Pulse Ox 99 12/31/17 13:44 - Medical History PMH: HTN, Hypercholesterolemia, Migraine Denies: Chronic Kidney Disease - [facility] Procedures FLUOROSCOPY OF LEFT HEART USING OTHER CONTRAST (12/19/17) FLUOROSCOPY OF MULTIPLE CORONARY ARTERIES USING OTH CONTRAST (12/19/17) MEASURE OF CARDIAC SAMPL & PRESSURE, L HEART, PERC APPROACH (12/19/17) EVANGELICAL OF CARDIAC RHYTHM, SINGLE (12/19/17) Family History: States: Unknown Family Hx - Social History Hx Tobacco Use: No Hx Alcohol Use: No Hx Substance Use: No - Immunization History Hx Tetanus Toxoid Vaccination: No Hx Influenza Vaccination: No Hx Pneumococcal Vaccination: No Review Of Systems Except As Marked, All Systems Reviewed And Found Negative. Constitutional: Negative for: Fever Respiratory: Negative for: Cough Physical Exam - Physical Exam Additional Physical Exam Comments: Constitutional: No acute distress. Head: Normocephalic. Atraumatic. Eyes: PERRL. ENT: Moist mucous membranes. Neck: Supple. Cardiovascular: Regular rate. Radial pulse 2+ bilaterally. Chest: No tenderness. Respiratory: Clear to auscultation bilaterally. GI: Soft. Nontender. Nondistended. Back: No CVA tenderness. Musculoskeletal: No tenderness or swelling of extremities. Skin: No rash. Neurologic: Alert, no focal deficit. ED Course And Treatment - Laboratory Results Result Diagrams: 12/31/17 12:54 12/31/17 12:54 O2 Sat by Pulse Oximetry: 99 Medical Decision Making Medical Decision Making: Aspirin 325 already taken today. Will evaluate further with labs, enzymes. EKG NSR 56 bpm, no ST/T wave changes. Right bundle branch morphology. CXR no acute disease. Dr. Lutz accepts patient to hospitalist service for rule out ACS. Disposition - Disposition Disposition: HOSPITALIZED Disposition Time: 13:44 Condition: FAIR Forms: [employer] (Bots[place]an) - POA Core Measure Indicators: Chest Pain - Clinical Impression Clinical Impression: Chest pain
[2017-12-31 13:13] LABS: BASO % 0.4 % (0.0-2.0); EOS # 0.1 K/uL (0.0-0.7); EOS % 0.8 % (0.0-4.0); LYMPH # 2.5 K/uL (1.0-4.3); LYMPH % 29.4 % (20.0-40.0); MEAN CELL VOLUME 83.5 fL (81.0-99.0); MEAN CORPUSCULAR HEMOGLOBIN 29.3 pg (27.0-31.0); MEAN CORPUSCULAR HGB CONC 35.1 g/dL (33.0-37.0); MEAN PLATELET VOLUME 8.6 fL (7.2-11.7); MONO # 0.9 K/uL (0.0-0.8); MONO % 10.5 % (0.0-10.0); NEUT % 58.9 % (50.0-75.0); NRBC % 0.2 % (0.0-2.0); RBC 5.48 Mil/uL (3.80-5.20); RED CELL DISTRIBUTION WIDTH 13.4 % (11.5-14.5); WHITE BLOOD COUNT 8.4 K/uL (4.8-10.8)
[2017-12-31 13:16] LABS: HEMOGLOBIN 16.1 g/dL (11.0-16.0)
[2017-12-31 13:18] LABS: ALB/GLOB RATIO 1.2 (1.0-2.1); ALBUMIN 4.8 g/dL (3.5-5.0); ALT/SGPT 38 U/L (9-52); AST/SGOT 30 U/L (14-36); BLOOD UREA NITROGEN 15 mg/dL (7-17); CALCIUM 9.6 mg/dl (8.6-10.4); GFR NON-AFRICAN AMERICAN > 60
[2017-12-31 13:25] LABS: INR 1.2
[2017-12-31 13:27] LABS: CK-MB 0.53 ng/mL (0.0-3.38)
--- NOTE | 2017-12-31 14:18 | RAD ---
Chest x-ray two views History: Chest pain. Comparison: 12/19/2017 Findings: Biapical pleural thickening with upper lobe granulomatous changes. Few scattered nodular densities in the upper lung pillai. Diffuse increased interstitial lung markings. Patchy increased markings at the lung bases. Nodular density at the right lung base. Mild cardiomegaly. Degenerative changes in the spine with paravertebral osteophytes. Impression: Biapical pleural thickening with upper lobe granulomatous changes. Few scattered nodular densities in the upper lung pillai. Diffuse increased interstitial lung markings. Patchy increased markings at the lung bases. Nodular density at the right lung base. Mild cardiomegaly.
[2017-12-31] MEDS ORDERED: Potassium Chloride 20 mEq ER Tab PO ONE ×2 (15:29→17:02)
--- NOTE | 2017-12-31 15:38 | CP.PCM.HP ---
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 Patient states that the pain began this morning around 3 AM. She also admits to dyspnea on exertion as well as pain with deep inspiration. She rates the chest pain as 9/10 pain at its worst. She states that with the chest pain she also experienced headache and dizziness. She denies any strenuous exercise since her hospital discharge. She states she had follow up appointment with Dr. Moreno scheduled for this coming January 05 at 3:30pm. She reports taking all discharge medications as prescribed. She denies nausea, vomiting, diarrhea, constipation , diaphoresis. PMD: Dr. Johnson PMHx: HTN, CVA, SVT Meds: lopressor 25mg PO q12h, losartan 50mg daily, lipitor 10mg, aspirin 325mg, HCTZ 12.5 daily PSHx: none Allergies: NKDA Social: denies drugs, tobacco, alcohol. Family history: mother: HTN, hypercholesterolemia, father-, cancer. siblings: HTN, hypercholesterolemia. Proxy: Son, Shar Scanlon [phone] Present on Admission - Present on Admission Any Indicators Present on Admission: No Review of Systems - Constitutional Constitutional: Headache. absent: Chills, Fever - EENT Ears: Dizziness - Cardiovascular Cardiovascular: Chest Pain, Dyspnea, Dyspnea on Exertion, Lightheadedness, Palpitations. absent: Pedal Edema - Respiratory Respiratory: Dyspnea, Pain on Inspiration (deep inspiration). absent: Cough - Gastrointestinal Gastrointestinal: absent: Constipation, Diarrhea, Nausea, Vomiting - Genitourinary Genitourinary: absent: Difficulty Urinating, Dysuria - Musculoskeletal Musculoskeletal: Back Pain (right trapezius). absent: Numbness - Neurological Neurological: Dizziness. absent: Confusion, Weakness Past Patient History - Past Medical History & Family History Past Medical History?: Yes - Past Social History Smoking Status: Never Smoked - CARDIAC Hx Hypercholesterolemia: Yes Hx Hypertension: Yes - PULMONARY Hx Respiratory Disorders: No - NEUROLOGICAL Hx Migraine: Yes - HEENT Hx HEENT Problems: No - RENAL Hx Chronic Kidney Disease: No - ENDOCRINE/METABOLIC Hx Endocrine Disorders: No - HEMATOLOGICAL/ONCOLOGICAL Hx Blood Disorders: No - INTEGUMENTARY Hx Dermatological Problems: No - MUSCULOSKELETAL/RHEUMATOLOGICAL Hx Falls: No - GASTROINTESTINAL Hx Gastrointestinal Disorders: No - GENITOURINARY/GYNECOLOGICAL Hx Genitourinary Disorders: No - PSYCHIATRIC Hx Substance Use: No - SURGICAL HISTORY Hx Surgeries: No - ANESTHESIA Hx Anesthesia: No Hx Anesthesia Reactions: No Hx Malignant Hyperthermia: No Meds Allergies/Adverse Reactions: Allergies Allergy/AdvReac Type Severity Reaction Status Date / Time No Known Allergies Allergy Verified 12/19/17 10:38 Physical Exam - Constitutional Appears: Non-toxic, No Acute Distress - Head Exam Head Exam: ATRAUMATIC, NORMOCEPHALIC - Eye Exam Eye Exam: EOMI - ENT Exam ENT Exam: Mucous Membranes Moist - Neck Exam Neck exam: Positive for: Normal Inspection. Negative for: Lymphadenopathy Additional comments: no JVD, no carotid bruit - Respiratory Exam Respiratory Exam: Chest Wall Tenderness (right side), Clear to Auscultation Bilateral, NORMAL BREATHING PATTERN. absent: Rales, Rhonchi, Wheezes - Cardiovascular Exam Cardiovascular Exam: +S1, +S2. absent: Systolic Murmur - GI/Abdominal Exam GI & Abdominal Exam: Normal Bowel Sounds, Soft, Tenderness (mild periumbilical tenderness) - Extremities Exam Extremities exam: Positive for: normal inspection. Negative for: calf tenderness, pedal edema Additional comments: palpable DP pulses bilaterally - Back Exam Additional comments: right trapezius tenderness on palpation - Neurological Exam Neurological exam: Alert, Oriented x3 - Psychiatric Exam Psychiatric exam: Normal Affect - Skin Skin Exam: Normal Color, Warm Results - Vital Signs Recent Vital Signs: Last Vital Signs Temp 98.3 F 12/31/17 11:37 Pulse 60 12/31/17 11:37 Resp 18 12/31/17 11:37 BP 148/91 H 12/31/17 11:37 Pulse Ox 99 12/31/17 13:51 - Labs Result Diagrams: 12/31/17 12:54 12/31/17 12:54 Labs: Laboratory Results - last 24 hr 12/31/17 12/31/17 12/31/17 12:54 12:54 13:11 WBC 8.4 RBC 5.48 H Hgb 16.1 H D Hct 45.8 MCV 83.5 MCH 29.3 MCHC 35.1 RDW 13.4 Plt Count 359 MPV 8.6 Neut % (Auto) 58.9 Lymph % (Auto) 29.4 [place] % (Auto) 10.5 H Eos % (Auto) 0.8 Baso % (Auto) 0.4 Neut # (Auto) 5.0 Lymph # (Auto) 2.5 [place] # (Auto) 0.9 H Eos # (Auto) 0.1 Baso # (Auto) 0.0 PT 13.0 H INR 1.2 APTT 36 H Sodium 135 Potassium 3.5 L Chloride 93 L Carbon Dioxide 28 Anion Gap 17 BUN 15 Creatinine 0.6 L Est GFR ( Amer) > 60 Est GFR (Non-Af Amer) > 60 Random Glucose 96 Calcium 9.6 Total Bilirubin 0.7 AST 30 ALT 38 Alkaline Phosphatase 126 Total Creatine Kinase 32 CK-MB (Mass) 0.53 Troponin I < 0.0120 Total Protein 8.7 H Albumin 4.8 Globulin 3.9 Albumin/Globulin Ratio 1.2 Assessment & Plan - Assessment and Plan (Free Text) Assessment: Chest pain rule out ACS chest pain is reproducible on palpation of right chest patient had recent admission for SVT s/p cardioversion first troponin negative, will continue to trend EKG shows sinus bradycardia with heart rate of 56, short WA interval, incomplete right bundle branch block (seen on prior EKG) Dr. Moreno, cardiology, consulted- help appreciated Patient had cardiac cath last admission with Dr. Moreno: EF of 55%, non- obstructive coronary artery disease. Recommend aggressive medical management. pharmacologic stress test on 12/21/17: equivocal Echocardiogram 12/19/17: shows EF of 70%, mild mitral and tricuspid regurgitation , mild pulmonary HTN, LVSF is normal History of SVT patient admitted on 12/19/17 with SVT. multiple rounds of adenosine tried with no response. patient s/p cardioversion with resulting sinus rhythm will continue to monitor on telemetry continue metoprolol tartrate 25mg PO 12h Thyroid studies done two weeks ago normal HTN continue HCTZ 12.5 daily losartan 50mg daily metoprolol tartrate 25mg PO Q12h History of CVA patient has residual left mouth droop will continue full dose aspirin 325mg Prophylactic measure heparin sc [id number] pepcid 20mg po daily tylenol 650mg q6h <NeldaReddy H - Last Filed: 12/31/17 18:38> Results - Vital Signs Recent Vital Signs: Last Vital Signs Temp 98.4 F 12/31/17 16:30 Pulse 69 12/31/17 16:30 Resp 18 12/31/17 16:30 BP 111/70 12/31/17 17:05 Pulse Ox 97 12/31/17 16:30 - Labs Result Diagrams: 12/31/17 12:54 12/31/17 12:54 Labs: Laboratory Results - last 24 hr 12/31/17 12/31/17 12/31/17 12:54 12:54 13:11 WBC 8.4 RBC 5.48 H Hgb 16.1 H D Hct 45.8 MCV 83.5 MCH 29.3 MCHC 35.1 RDW 13.4 Plt Count 359 MPV 8.6 Neut % (Auto) 58.9 Lymph % (Auto) 29.4 [place] % (Auto) 10.5 H Eos % (Auto) 0.8 Baso % (Auto) 0.4 Neut # (Auto) 5.0 Lymph # (Auto) 2.5 [place] # (Auto) 0.9 H Eos # (Auto) 0.1 Baso # (Auto) 0.0 PT 13.0 H INR 1.2 APTT 36 H Sodium 135 Potassium 3.5 L Chloride 93 L Carbon Dioxide 28 Anion Gap 17 BUN 15 Creatinine 0.6 L Est GFR ( Amer) > 60 Est GFR (Non-Af Amer) > 60 Random Glucose 96 Calcium 9.6 Total Bilirubin 0.7 AST 30 ALT 38 Alkaline Phosphatase 126 Total Creatine Kinase 32 CK-MB (Mass) 0.53 Troponin I < 0.0120 Total Protein 8.7 H Albumin 4.8 Globulin 3.9 Albumin/Globulin Ratio 1.2 Attending/Attestation - Attestation I have personally seen and examined this patient.: Yes I have fully participated in the care of the patient.: Yes I have reviewed all pertinent clinical information: Yes Notes (Text): 12/31/17 18:32 Medical attending: Patient was seen and examined by me. Agree with the above note by the medical dermatologist. We saw the patient together in the ER bed #3 The patient was not in any acute distress when we came and saw her. The chest pain was over the left upper chest as well as around the shoulder to the trapezius area of her left upper back. The pain was reproducible on exam. As mentioned previously she was recently her with SVT that did not respond to adenosine and she required cardioversion and was observed in the ICU. She later underwent a cardiac cath. She is pending a fllow up with cardiology. The EKG today in the ER was small WA segments as well as small QRS and with what looked like delta waves. I supposed it is possible we need to consider WPW. We need additional EKGs so more have been ordered. For now avoid CCB. We will get cardiology evaluation Reddy Lutz
[2018-01-01 01:55] LABS: CK-MB 0.43 ng/mL (0.0-3.38)
[2018-01-01 06:34] LABS: BASO # 0.1 K/uL (0.0-0.2); BASO % 0.7 % (0.0-2.0); EOS # 0.1 K/uL (0.0-0.7); HEMOGLOBIN 15.4 g/dL (11.0-16.0); LYMPH # 3.2 K/uL (1.0-4.3); LYMPH % 36.8 % (20.0-40.0); MEAN CELL VOLUME 84.4 fL (81.0-99.0); MEAN CORPUSCULAR HEMOGLOBIN 29.4 pg (27.0-31.0); MEAN CORPUSCULAR HGB CONC 34.9 g/dL (33.0-37.0); MEAN PLATELET VOLUME 8.7 fL (7.2-11.7); MONO # 0.7 K/uL (0.0-0.8); NEUT # 4.6 K/uL (1.8-7.0); NEUT % 53.5 % (50.0-75.0); NRBC % 0.2 % (0.0-2.0); RBC 5.24 Mil/uL (3.80-5.20); RED CELL DISTRIBUTION WIDTH 13.5 % (11.5-14.5); WHITE BLOOD COUNT 8.6 K/uL (4.8-10.8)
[2018-01-01 06:45] LABS: ALB/GLOB RATIO 1.2 (1.0-2.1); ALBUMIN 4.4 g/dL (3.5-5.0); ALT/SGPT 33 U/L (9-52); AST/SGOT 32 U/L (14-36); BLOOD UREA NITROGEN 17 mg/dL (7-17); CALCIUM 9.8 mg/dl (8.6-10.4); GFR NON-AFRICAN AMERICAN > 60
--- NOTE | 2018-01-01 08:53 | CARD ---
APPROVED REPORT Date of service: 12/31/2017 EKG Measurement Heart [id number] <Conclusion> Sinus bradycardia with short MS Pre-excitation Rightward axis Incomplete right bundle branch block Nonspecific ST abnormality Abnormal ECG
--- NOTE | 2018-01-01 10:28 | CP.PCM.CON ---
History of Present Illness - History of Present Illness History of Present Illness: Alphonso Dye, PGY1 Cardiology Consult Note for Dr. Moreno Patient is a 57 y/o female with PMHx of HTN, CVA (1997), and recent admission for SVT s/p cardioversion who presented to the hospital for complaints of R-sided chest pain and R-upper back pain. EKG shwoed sinus bradycardia with short AL interval, incomplete RBBB and non-specific ST abnormality. Troponins upon admission are negative x3. Patient's CXR showed biapical pleural thickening with upepr granulomatous changes, scattered nodular densities in upper lung pillai, diffuse increased interstitial lung markings, patchy increased markings at lung bases, and nodular density at right lung base. Patient was transferred to ICU for monitoring of chest pain and abnormal findings noted on EKG. Patient examined by cardiology team this morning. Language interpretation was done by off-site interpretor. Patient currently denied palpitations, shortness of breath, lightheadedness, headache, nausea, vomiting, diarrhea. Patient still endorses right sided chest pain with radiation of pain to the right upper back. Pain is reproducible with palpation. Patient said that the chest pain she is experiencing feels different from the chest pain that she had from her prior hospital admission. A full 12 point ROS was conducted and unremarkable except as stated above. As from prior charting: PMD: Dr. Johnson PMHx: HTN, CVA, SVT Meds: lopressor 25mg PO q12h, losartan 50mg daily, lipitor 10mg, aspirin 325mg, HCTZ 12.5 daily PSHx: none Allergies: NKDA Social: denies drugs, tobacco, alcohol. Family history: mother: HTN, hypercholesterolemia, father-, cancer. siblings: HTN, hypercholesterolemia. Proxy: Son, Shar Scanlon [phone] Review of Systems - Review of Systems All systems: reviewed and no additional remarkable complaints except (as per HPI.) Past Patient History - Past Medical History & Family History Past Medical History?: Yes - Past Social History Smoking Status: Never Smoked - CARDIAC Hx Cardia Arrhythmia: Yes Hx Hypercholesterolemia: Yes Hx Hypertension: Yes - PULMONARY Hx Respiratory Disorders: No - NEUROLOGICAL HX Cerebrovascular Accident: Yes Hx Migraine: Yes - HEENT Hx HEENT Problems: No - RENAL Hx Chronic Kidney Disease: No - ENDOCRINE/METABOLIC Hx Endocrine Disorders: No - HEMATOLOGICAL/ONCOLOGICAL Hx Blood Disorders: No - INTEGUMENTARY Hx Dermatological Problems: No - MUSCULOSKELETAL/RHEUMATOLOGICAL Hx Falls: No - GASTROINTESTINAL Hx Gastrointestinal Disorders: No - GENITOURINARY/GYNECOLOGICAL Hx Genitourinary Disorders: No - PSYCHIATRIC Hx Substance Use: No - SURGICAL HISTORY Hx Surgeries: No - ANESTHESIA Hx Anesthesia: No Hx Anesthesia Reactions: No Hx Malignant Hyperthermia: No Meds Allergies/Adverse Reactions: Allergies Allergy/AdvReac Type Severity Reaction Status Date / Time No Known Allergies Allergy Verified 12/19/17 10:38 - Medications Medications: Current Medications Acetaminophen (Tylenol 325mg Tab) 650 mg PO Q6 PRN PRN Reason: Pain, Mild (1-3) Last Admin: 01/01/18 05:32 Dose: 650 mg Aspirin (Aspirin) 325 mg PO DAILY [facility] Last Admin: 01/01/18 10:00 Dose: 325 mg Famotidine (Pepcid) 20 mg PO DAILY [facility] Last Admin: 01/01/18 10:00 Dose: 20 mg Heparin Sodium (Porcine) (Heparin) 5,000 units SC Q8 [facility] Last Admin: 01/01/18 05:33 Dose: 5,000 units Hydrochlorothiazide (Microzide) 12.5 mg PO DAILY [facility] Last Admin: 01/01/18 10:00 Dose: 12.5 mg Losartan Potassium (Cozaar) 50 mg PO DAILY [facility] Last Admin: 01/01/18 10:00 Dose: 50 mg Metoprolol Tartrate (Lopressor) 25 mg PO Q12H [facility] Last Admin: 01/01/18 03:22 Dose: Not Given Pneumococcal Polyvalent Vaccine (Pneumovax 23 Vaccine) 0.5 ml SC .ONCE ONE Stop: 01/03/18 10:01 Rosuvastatin Calcium (Crestor) 5 mg PO [facility] Last Admin: 12/31/17 22:00 Dose: 5 mg Physical Exam - Constitutional Appears: Well - Head Exam Head Exam: ATRAUMATIC, NORMAL INSPECTION, NORMOCEPHALIC - Eye Exam Eye Exam: EOMI, Normal appearance, PERRL Pupil Exam: NORMAL ACCOMODATION, PERRL - ENT Exam ENT Exam: Mucous Membranes Moist, Normal Exam - Neck Exam Neck exam: Positive for: Normal Inspection - Respiratory Exam Respiratory Exam: Chest Wall Tenderness (mild tenderness with palpation. ), Clear to Auscultation Bilateral, NORMAL BREATHING PATTERN. absent: Rales, Rhonchi, Wheezes, Respiratory Distress, Stridor - Cardiovascular Exam Cardiovascular Exam: REGULAR RHYTHM, +S1, +S2. absent: Systolic Murmur - GI/Abdominal Exam GI & Abdominal Exam: Normal Bowel Sounds, Soft. absent: Tenderness - Extremities Exam Extremities exam: Positive for: full ROM, normal capillary refill, normal inspection, pedal pulses present. Negative for: calf tenderness, joint swelling , pedal edema, tenderness - Back Exam Back exam: NORMAL INSPECTION - Neurological Exam Neurological exam: Alert, Oriented x3 - Skin Skin Exam: Dry, Intact, Normal Color, Warm Results - Vital Signs Recent Vital Signs: Last Vital Signs Temp 98.4 F 01/01/18 08:00 Pulse 68 01/01/18 08:00 Resp 18 01/01/18 08:00 BP 123/87 01/01/18 08:00 Pulse Ox 98 01/01/18 08:00 - Labs Result Diagrams: 01/01/18 06:20 01/01/18 06:20 Labs: Laboratory Results - last 24 hr 12/31/17 12/31/17 12/31/17 12:54 12:54 13:11 WBC 8.4 RBC 5.48 H Hgb 16.1 H D Hct 45.8 MCV 83.5 MCH 29.3 MCHC 35.1 RDW 13.4 Plt Count 359 MPV 8.6 Neut % (Auto) 58.9 Lymph % (Auto) 29.4 [place] % (Auto) 10.5 H Eos % (Auto) 0.8 Baso % (Auto) 0.4 Neut # (Auto) 5.0 Lymph # (Auto) 2.5 [place] # (Auto) 0.9 H Eos # (Auto) 0.1 Baso # (Auto) 0.0 PT 13.0 H INR 1.2 APTT 36 H Sodium 135 Potassium 3.5 L Chloride 93 L Carbon Dioxide 28 Anion Gap 17 BUN 15 Creatinine 0.6 L Est GFR ( Amer) > 60 Est GFR (Non-Af Amer) > 60 Random Glucose 96 Calcium 9.6 Phosphorus Magnesium Total Bilirubin 0.7 AST 30 ALT 38 Alkaline Phosphatase 126 Total Creatine Kinase 32 CK-MB (Mass) 0.53 Troponin I < 0.0120 Total Protein 8.7 H Albumin 4.8 Globulin 3.9 Albumin/Globulin Ratio 1.2 12/31/17 01/01/18 01/01/18 19:29 01:23 06:20 WBC 8.6 RBC 5.24 H Hgb 15.4 Hct 44.2 MCV 84.4 MCH 29.4 MCHC 34.9 RDW 13.5 Plt Count 345 MPV 8.7 Neut % (Auto) 53.5 Lymph % (Auto) 36.8 [place] % (Auto) 8.0 Eos % (Auto) 1.0 Baso % (Auto) 0.7 Neut # (Auto) 4.6 Lymph # (Auto) 3.2 [place] # (Auto) 0.7 Eos # (Auto) 0.1 Baso # (Auto) 0.1 PT INR APTT Sodium Potassium Chloride Carbon Dioxide Anion Gap BUN Creatinine Est GFR ( Amer) Est GFR (Non-Af Amer) Random Glucose Calcium Phosphorus Magnesium Total Bilirubin AST ALT Alkaline Phosphatase Total Creatine Kinase 29 L 24 L CK-MB (Mass) 0.50 0.43 Troponin I < 0.0120 < 0.0120 Total Protein Albumin Globulin Albumin/Globulin Ratio 01/01/18 06:20 WBC RBC Hgb Hct MCV MCH MCHC RDW Plt Count MPV Neut % (Auto) Lymph % (Auto) [place] % (Auto) Eos % (Auto) Baso % (Auto) Neut # (Auto) Lymph # (Auto) [place] # (Auto) Eos # (Auto) Baso # (Auto) PT INR APTT Sodium 136 Potassium 3.8 Chloride 96 L Carbon Dioxide 28 Anion Gap 17 BUN 17 Creatinine 0.7 Est GFR ( Amer) > 60 Est GFR (Non-Af Amer) > 60 Random Glucose 89 Calcium 9.8 Phosphorus 4.4 Magnesium 2.0 Total Bilirubin 0.7 AST 32 ALT 33 Alkaline Phosphatase 118 Total Creatine Kinase CK-MB (Mass) Troponin I Total Protein 8.2 Albumin 4.4 Globulin 3.7 Albumin/Globulin Ratio 1.2 Assessment & Plan - Assessment and Plan (Free Text) Assessment: Patient is a 57 y/o female with PMHx of HTN, CVA (1997), and recent admission for SVT s/p cardioversion who presented to the hospital for complaints of R-sided chest pain and R-upper back pain. EKG shwoed sinus bradycardia with short AL interval, incomplete RBBB and non-specific ST abnormality. Troponins upon admission are negative x3. Patient was transferred to ICU for monitoring of chest pain and abnormal findings noted on EKG. Cardiology consulted for evaluation of chest pain. Plan: Chest pain with abnormal EKG changes (accessory pathway) - Currently endorses right sided cp that is atypical in nature - Recent EKG indicates likely involvement of accessory pathway, cannot r/o WPW syndrome. Patient needs further evaluation with EP study. - vital signs stable: HR 64, BP 123/87 during interview - Troponin negative x3 - EKG 12/31/2017 : Sinus bradycardia with short AL, pre-excitation, rightward axis, incomplete right bundle branch block, nonspecific ST abnormality. - CXR 12/31/2017: mild cardiomegaly, biapical pleural thickening w/ upper granlomatous changes, scattered nodular densities in upper lung pillai, diffuse increased interstitial lung marking, patchy increased markings at lung bases, and nodular density at right lung base. - Cardiac Catherization (12/22/2017) : non obstructive coronary artery disease, normal left ventricular ejection fraction. - Lexiscan (12/20/17): no chest pain, arrhythmia during test; however, there was upsloping ST depression (see full report) History of SVT - EP study - Continue to monitor for arrhythmias via telemetry - Continue metoprolol tartrate 25 mg PO 12h. HTN -Continue HCTZ 12.5 mg daily -Losartan 50 mg daily -Metoprolol tartrate 25 mg PO Q12h History of CVA -Continue full dose aspirin 325 mg DT ppx: Heparin SC GI ppx: Pepcid Dispo: Continue to monitor patient on telemetry. Case was discussed and reviewed with [employer]ist Dr. Moreno.
--- NOTE | 2018-01-01 14:52 | CP.PCM.DIS ---
Provider - Provider Date of Admission: 12/31/17 13:48 Attending physician: Reddy Lutz DO Primary care physician: Dr. Johnson Consults: cardiology (Dr. Moreno), electrophysiology (Dr. Rogers), PT Time Spent in preparation of Discharge (in minutes): 45 Diagnosis - Discharge Diagnosis (1) Shoulder pain, right Status: Acute Priority: High (2) EKG abnormalities Status: Acute Priority: High Hospital Course - Lab Results Lab Results: Most Recent Lab Values WBC 8.6 K/uL (4.8-10.8) 01/01/18 06:20 RBC 5.24 Mil/uL (3.80-5.20) H 01/01/18 06:20 Hgb 15.4 g/dL (11.0-16.0) 01/01/18 06:20 Hct 44.2 % (34.0-47.0) 01/01/18 06:20 MCV 84.4 fL (81.0-99.0) 01/01/18 06:20 MCH 29.4 pg (27.0-31.0) 01/01/18 06:20 MCHC 34.9 g/dL (33.0-37.0) 01/01/18 06:20 RDW 13.5 % (11.5-14.5) 01/01/18 06:20 Plt Count 345 K/uL (130-400) 01/01/18 06:20 MPV 8.7 fL (7.2-11.7) 01/01/18 06:20 Neut % (Auto) 53.5 % (50.0-75.0) 01/01/18 06:20 Lymph % (Auto) 36.8 % (20.0-40.0) 01/01/18 06:20 [place] % (Auto) 8.0 % (0.0-10.0) 01/01/18 06:20 Eos % (Auto) 1.0 % (0.0-4.0) 01/01/18 06:20 Baso % (Auto) 0.7 % (0.0-2.0) 01/01/18 06:20 Neut # (Auto) 4.6 K/uL (1.8-7.0) 01/01/18 06:20 Lymph # (Auto) 3.2 K/uL (1.0-4.3) 01/01/18 06:20 [place] # (Auto) 0.7 K/uL (0.0-0.8) 01/01/18 06:20 Eos # (Auto) 0.1 K/uL (0.0-0.7) 01/01/18 06:20 Baso # (Auto) 0.1 K/uL (0.0-0.2) 01/01/18 06:20 PT 13.0 SECONDS (9.7-12.2) H 12/31/17 13:11 INR 1.2 12/31/17 13:11 APTT 36 SECONDS (21-34) H 12/31/17 13:11 Sodium 136 mmol/L (132-148) 01/01/18 06:20 Potassium 3.8 mmol/L (3.6-5.2) 01/01/18 06:20 Chloride 96 mmol/L (98-107) L 01/01/18 06:20 Carbon Dioxide 28 mmol/L (22-30) 01/01/18 06:20 Anion Gap 17 (10-20) 01/01/18 06:20 BUN 17 mg/dL (7-17) 01/01/18 06:20 Creatinine 0.7 mg/dL (0.7-1.2) 01/01/18 06:20 Est GFR ( Amer) > 60 01/01/18 06:20 Est GFR (Non-Af Amer) > 60 01/01/18 06:20 Random Glucose 89 mg/dL (65-105) 01/01/18 06:20 Calcium 9.8 mg/dl (8.6-10.4) 01/01/18 06:20 Phosphorus 4.4 mg/dL (2.5-4.5) 01/01/18 06:20 Magnesium 2.0 mg/dL (1.6-2.3) 01/01/18 06:20 Total Bilirubin 0.7 mg/dL (0.2-1.3) 01/01/18 06:20 AST 32 U/L (14-36) 01/01/18 06:20 ALT 33 U/L (9-52) 01/01/18 06:20 Alkaline Phosphatase 118 U/L (38-126) 01/01/18 06:20 Total Creatine Kinase 24 U/L (30-135) L 01/01/18 01:23 CK-MB (Mass) 0.43 ng/mL (0.0-3.38) 01/01/18 01:23 Troponin I < 0.0120 ng/mL (0.00-0.120) 01/01/18 01:23 Total Protein 8.2 g/dL (6.3-8.3) 01/01/18 06:20 Albumin 4.4 g/dL (3.5-5.0) 01/01/18 06:20 Globulin 3.7 gm/dL (2.2-3.9) 01/01/18 06:20 Albumin/Globulin Ratio 1.2 (1.0-2.1) 01/01/18 06:20 - Hospital Course Hospital Course: Patient is a 57 year old female with past medical history of hypertension, 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 Patient states that the pain began this morning around 3 AM. She also admits to dyspnea on exertion as well as pain with deep inspiration. She rates the chest pain as 9/10 pain at its worst. She states that with the chest pain she also experienced headache and dizziness. She denies any strenuous exercise since her hospital discharge. She states she had follow up appointment with Dr. Moreno scheduled for this coming January 05 at 3:30pm. She reports taking all discharge medications as prescribed. She denies nausea, vomiting, diarrhea, constipation , diaphoresis. Patient was able to localize pain to her R humerus head A right shoulder XR did not demonstrate any acute pathology. PT was consulted. Patients grounds manager, Dr. Moreno, wanted an EP study done to evaluate EKG abnormalities- Dr. Rogers consulted. Upon discharge, patients shoulder pain was well controlled with Tylenol. Discharge Exam - Head Exam Head Exam: ATRAUMATIC, NORMAL INSPECTION, NORMOCEPHALIC - Eye Exam Eye Exam: EOMI, Normal appearance - ENT Exam ENT Exam: Mucous Membranes Moist, Normal Exam - Neck Exam Neck exam: Normal Inspection - Respiratory Exam Respiratory Exam: Clear to PA & Lateral, NORMAL BREATHING PATTERN - Cardiovascular Exam Cardiovascular Exam: REGULAR RHYTHM, +S1, +S2 - GI/Abdominal Exam GI & Abdominal Exam: Normal Bowel Sounds, Soft, Unremarkable - Rectal Exam Rectal Exam: Deferred - Extremities Exam Extremities exam: normal inspection - Back Exam Back exam: NORMAL INSPECTION - Neurological Exam Neurological exam: Alert, CN II-XII Intact, Oriented x3 Additional comments: slow gait, patient seems unsure of herself - Psychiatric Exam Psychiatric exam: Normal Affect, Normal Mood - Skin Skin Exam: Dry, Intact, Normal Color, Warm Discharge Plan - Follow Up Plan Condition: IMPROVED Disposition: HOME/ ROUTINE Patient education suggested?: Yes
--- NOTE | 2018-01-01 16:28 | CP.PCM.PN ---
<Snehal Gong - Last Filed: 01/01/18 17:24> Subjective - Date & Time of Evaluation Date of Evaluation: 01/01/18 Time of Evaluation: 10:00 - Subjective Subjective: PGY-1 Snehal Gong D.O. Medicine progress note: Patient is seen and examined this morning. She is sitting upright in a chair in no acute distress. She states that her right arm pain has improved with Tylenol. She says it hurts mostly when moving her arm. She denies chest pain, palpitations, and SOB. She also denies SIGALA and dizziness that was present on admission. Objective - Vital Signs/Intake and Output Vital Signs (last 24 hours): Temp Pulse Resp BP Pulse Ox 98.4 F 68 18 123/87 98 01/01/18 08:00 01/01/18 08:00 01/01/18 08:00 01/01/18 08:00 01/01/18 08:00 Intake and Output: 01/01/18 01/01/18 06:59 18:59 Intake Total 480 Output Total 300 Balance -300 480 - Medications Medications: Current Medications Acetaminophen (Tylenol 325mg Tab) 650 mg PO Q6 PRN PRN Reason: Pain, Mild (1-3) Last Admin: 01/01/18 05:32 Dose: 650 mg Aspirin (Aspirin) 325 mg PO DAILY [facility] Last Admin: 01/01/18 10:00 Dose: 325 mg Famotidine (Pepcid) 20 mg PO DAILY [facility] Last Admin: 01/01/18 10:00 Dose: 20 mg Heparin Sodium (Porcine) (Heparin) 5,000 units SC Q8 [facility] Last Admin: 01/01/18 05:33 Dose: 5,000 units Hydrochlorothiazide (Microzide) 12.5 mg PO DAILY [facility] Last Admin: 01/01/18 10:00 Dose: 12.5 mg Losartan Potassium (Cozaar) 50 mg PO DAILY [facility] Last Admin: 01/01/18 10:00 Dose: 50 mg Metoprolol Tartrate (Lopressor) 25 mg PO Q12H [facility] Last Admin: 01/01/18 03:22 Dose: Not Given Pneumococcal Polyvalent Vaccine (Pneumovax 23 Vaccine) 0.5 ml SC .ONCE ONE Stop: 01/03/18 10:01 Rosuvastatin Calcium (Crestor) 5 mg PO HS [facility] Last Admin: 12/31/17 22:00 Dose: 5 mg - Labs Labs: 01/01/18 06:20 01/01/18 06:20 PT 13.0 SECONDS (9.7-12.2) H 12/31/17 13:11 INR 1.2 12/31/17 13:11 APTT 36 SECONDS (21-34) H 12/31/17 13:11 - Head Exam Head Exam: ATRAUMATIC, NORMAL INSPECTION, NORMOCEPHALIC - Eye Exam Eye Exam: EOMI, Normal appearance - ENT Exam ENT Exam: Mucous Membranes Moist, Normal Exam - Neck Exam Neck Exam: Normal Inspection - Respiratory Exam Respiratory Exam: Clear to Ausculation Bilateral, NORMAL BREATHING PATTERN - Cardiovascular Exam Cardiovascular Exam: REGULAR RHYTHM, +S1, +S2 Additional comments: reproducible pain with palpation on R chest wall - GI/Abdominal Exam GI & Abdominal Exam: Soft, Normal Bowel Sounds. absent: Tenderness - Rectal Exam Rectal Exam: Deferred - Extremities Exam Extremities Exam: Normal Inspection, Tenderness (R shoulder/trapezius muscle) - Back Exam Back Exam: NORMAL INSPECTION - Neurological Exam Neurological Exam: Alert, Awake, Normal Gait, Oriented x3 - Psychiatric Exam Psychiatric exam: Normal Affect, Normal Mood - Skin Skin Exam: Dry, Intact, Normal Color, Warm Assessment and Plan (1) Shoulder pain, right Status: Acute - Assessment and Plan (Free Text) Assessment: Patient is a 57 yo female with a recent h/o SVT corrected with cardioversion, HTN, and CVA with residual facial droop who presented with R- sided chest and shoulder pain. R shoulder XR was negative for acute fracture. EKG demonstrated some abnormalities and is being worked up. Plan: R shoulder pain, acute - R shoulder XR negative for acute pathology - Tylenol 650 mg PO q6hrs prn- relieves pain Chest pain, acute- r/o ACS - Reproducible with palpation - Recent h/o SVT s/p cardioversion, currently in NSR (HR 50s-60s) - Troponin negative x3 - EKG 12/31: sinus bradycardia (HR 56), short [place] interval, incomplete right bundle branch block (seen on prior EKG) - Cardiac cath last admission with Dr. Moreno: EF of 55%, non-obstructive coronary artery disease. Recommend aggressive medical management. pharmacologic stress test on 12/21/17: equivocal Echocardiogram 12/19/17: shows EF of 70%, mild mitral and tricuspid regurgitation , mild pulmonary HTN, LVSF is normal - Cardiology consulted (Dr. Moreno) - EP consulted (Dr. Rogers) Dr. Moreno, cardiology, consulted- help appreciated Patient had History of SVT patient admitted on 12/19/17 with SVT. multiple rounds of adenosine tried with no response. patient s/p cardioversion with resulting sinus rhythm will continue to monitor on telemetry continue metoprolol tartrate 25mg PO 12h Thyroid studies done two weeks ago normal HTN continue HCTZ 12.5 daily losartan 50mg daily metoprolol tartrate 25mg PO Q12h History of CVA patient has residual left mouth droop will continue full dose aspirin 325mg VTE ppx: heparin 5000 units SC q8hrs GI ppx: Pepcid 20 mg PO daily Diet: heart healthy <Mikhail Irizarry - Last Filed: 01/01/18 18:23> Objective - Vital Signs/Intake and Output Vital Signs (last 24 hours): Temp Pulse Resp BP Pulse Ox 98.2 F 83 20 92/60 L 99 01/01/18 16:00 01/01/18 16:00 01/01/18 16:00 01/01/18 16:26 01/01/18 12:00 Intake and Output: 01/01/18 01/01/18 06:59 18:59 Intake Total 480 Output Total 300 Balance -300 480 - Medications Medications: Current Medications Acetaminophen (Tylenol 325mg Tab) 650 mg PO Q6 PRN PRN Reason: Pain, Mild (1-3) Last Admin: 01/01/18 05:32 Dose: 650 mg Aspirin (Aspirin) 325 mg PO DAILY [facility] Last Admin: 01/01/18 10:00 Dose: 325 mg Famotidine (Pepcid) 20 mg PO DAILY [facility] Last Admin: 01/01/18 10:00 Dose: 20 mg Heparin Sodium (Porcine) (Heparin) 5,000 units SC Q8 [facility] Last Admin: 01/01/18 16:24 Dose: 5,000 units Hydrochlorothiazide (Microzide) 12.5 mg PO DAILY [facility] Last Admin: 01/01/18 10:00 Dose: 12.5 mg Losartan Potassium (Cozaar) 50 mg PO DAILY [facility] Last Admin: 01/01/18 10:00 Dose: 50 mg Metoprolol Tartrate (Lopressor) 25 mg PO Q12H [facility] Last Admin: 01/01/18 16:26 Dose: Not Given Pneumococcal Polyvalent Vaccine (Pneumovax 23 Vaccine) 0.5 ml SC .ONCE ONE Stop: 01/03/18 10:01 Rosuvastatin Calcium (Crestor) 5 mg PO HS [facility] Last Admin: 12/31/17 22:00 Dose: 5 mg - Labs Labs: 01/01/18 06:20 01/01/18 06:20 PT 13.0 SECONDS (9.7-12.2) H 12/31/17 13:11 INR 1.2 12/31/17 13:11 APTT 36 SECONDS (21-34) H 12/31/17 13:11 Attending/Attestation - Attestation I have personally seen and examined this patient.: Yes I have fully participated in the care of the patient.: Yes I have reviewed all pertinent clinical information, including history, physical exam and plan: Yes Notes (Text): 01/01/18 18:16 Patient was seen and examined at 9:45 AM 01/01/18 Currently upon ROS: NO longer experiencing any chest pain Her back pain is actually right posterior shoulder pain NO palpitations NO SOB NO dizziness/lightheadedness NO abdominal pain NO n/v/d/c: normal nonbloody bowel movements NO buring/pain with urination NO new changes in vision/loss of vision NO new changes in hearing/loss of hearing/tinnitus NO edema NO paresthesias (+) SIGALA bifrontal that is mild NO other complaints upon FULL ROS Exam: General: AAOX3, NAD HEENT: NCA, EOMI, PERRLA,, NO cervical/supraclavicular/submandibular lymphadenopathy, NO pharyngeal erythema/exudate, Nasal Turbinates are nonerythematous/nonedematous, Oral Mucosa is moist, NO thyromegaly Cardio: NS1 and NS2, NO M/R/G Resp: CTA B/L NO R/R/W GI: BSx4, Soft, NT, NO HSM, NO guarding/rebound tenderness Ext: Pulses are strong and equal, Capillary Refill is 2 seconds, NO edema, Fingers and Toes Bilaterally are normal color/warm Neuro: CN II through XII are grossly intact Assessment and Plan: 1). Chest Pain with history CAD This has resolved Troponin x 3 negative Hx RCA 50% stenosis as per Cardiac Catheterization by Dr. Moreno on 12/22/17 ASA 325 mg PO 1x/day Metoprolol 25 mg PO Q12H Crestor 5 mg PO HS 2). Hx SVT Metoprolol 25 mg PO Q12H She is rate controlled 3). Hx HTN Losartan 50 mg PO 1x/day Metoprolol 25 mg PO Q12H HCTZ 12.5 mg PO 1x/day 4). 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 Right Posterior Shoulder Pain F/U Right Shoulder X Ray 6). Prophylaxis Tylenol 650 mg PO Q6H PRN Moderate Pain Pepcid 20 mg PO 1x/day Heparin 5,000 Units SC Q8H Disposition: Cardiology Dr. Moreno would like Mammography Technologist Dr. Rogers to evaluate patient for possible WPW prior to clearing her for discharge
--- NOTE | 2018-01-01 16:43 | RAD ---
Date of service: 01/01/2018 PROCEDURE: Radiographs of the Right Shoulder HISTORY: Right Shoulder Pain COMPARISON: No prior. FINDINGS: BONES: Normal. No fracture. JOINTS: Normal. Glenohumeral and acromioclavicular joints preserved. No osteoarthritis. SOFT TISSUES: Normal. OTHER FINDINGS: None. IMPRESSION: Normal radiographs of the right shoulder.
--- NOTE | 2018-01-01 23:39 | CARD ---
APPROVED REPORT Date of service: 12/31/2017 EKG Measurement Heart [id number] <Conclusion> Sinus bradycardia with short WI Left axis deviation Incomplete right bundle branch block Nonspecific ST abnormality Abnormal ECG
[2018-01-02 08:42] LABS: BASO % 0.6 % (0.0-2.0); EOS # 0.1 K/uL (0.0-0.7); EOS % 0.9 % (0.0-4.0); HEMOGLOBIN 14.8 g/dL (11.0-16.0); LYMPH # 2.1 K/uL (1.0-4.3); MEAN CORPUSCULAR HEMOGLOBIN 29.5 pg (27.0-31.0); MEAN CORPUSCULAR HGB CONC 35.1 g/dL (33.0-37.0); MEAN PLATELET VOLUME 8.3 fL (7.2-11.7); MONO # 0.6 K/uL (0.0-0.8); MONO % 8.4 % (0.0-10.0); NEUT # 4.2 K/uL (1.8-7.0); NEUT % 60.1 % (50.0-75.0); NRBC % 0.2 % (0.0-2.0); RBC 5.02 Mil/uL (3.80-5.20); RED CELL DISTRIBUTION WIDTH 13.2 % (11.5-14.5)
[2018-01-02 09:12] LABS: ALB/GLOB RATIO 1.4 (1.0-2.1); ALBUMIN 4.2 g/dL (3.5-5.0); ALT/SGPT 34 U/L (9-52); AST/SGOT 25 U/L (14-36); BLOOD UREA NITROGEN 12 mg/dL (7-17); CALCIUM 9.1 mg/dl (8.6-10.4); GFR NON-AFRICAN AMERICAN > 60
--- NOTE | 2018-01-02 10:14 | CP.PCM.PN ---
Subjective - Date & Time of Evaluation Date of Evaluation: 01/02/18 Time of Evaluation: 08:00 - Subjective Subjective: Alphonso Dye, PGY1 Cardiology Progress Note for Dr. Moreno Patient was seen and examined at bedside this morning. Off-site language interpretation (Romanian) was used. No overnight changes. Patient was explained that the results of her R-shoulder XRay were negative for fracture. She said that her right sided chest pain and shoulder pain improves with tylenol use. Otherwise, she denies shortness of breath, lightheadedness, blurry vision, headache, dizziness, abdominal pain, nausea, vomiting, diarrhea. A full 12 point ROS was conducted and unremarkable except as stated above. Objective - Vital Signs/Intake and Output Vital Signs (last 24 hours): Temp Pulse Resp BP Pulse Ox 98.5 F 52 L 20 109/66 96 01/02/18 07:00 01/02/18 07:00 01/02/18 07:00 01/02/18 07:00 01/02/18 07:00 - Medications Medications: Current Medications Acetaminophen (Tylenol 325mg Tab) 650 mg PO Q6 PRN PRN Reason: Pain, Mild (1-3) Last Admin: 01/01/18 21:07 Dose: 650 mg Aspirin (Aspirin) 325 mg PO DAILY [facility] Last Admin: 01/01/18 10:00 Dose: 325 mg Famotidine (Pepcid) 20 mg PO DAILY [facility] Last Admin: 01/01/18 10:00 Dose: 20 mg Heparin Sodium (Porcine) (Heparin) 5,000 units SC Q8 [facility] Last Admin: 01/02/18 06:11 Dose: 5,000 units Hydrochlorothiazide (Microzide) 12.5 mg PO DAILY [facility] Last Admin: 01/01/18 10:00 Dose: 12.5 mg Losartan Potassium (Cozaar) 50 mg PO DAILY [facility] Last Admin: 01/01/18 10:00 Dose: 50 mg Metoprolol Tartrate (Lopressor) 25 mg PO Q12H [facility] Last Admin: 01/02/18 02:46 Dose: Not Given Pneumococcal Polyvalent Vaccine (Pneumovax 23 Vaccine) 0.5 ml SC .ONCE ONE Stop: 01/03/18 10:01 Rosuvastatin Calcium (Crestor) 5 mg PO HS [facility] Last Admin: 01/01/18 21:07 Dose: 5 mg - Labs Labs: 01/02/18 08:29 01/02/18 08:29 PT 13.0 SECONDS (9.7-12.2) H 12/31/17 13:11 INR 1.2 12/31/17 13:11 APTT 36 SECONDS (21-34) H 12/31/17 13:11 - Constitutional Appears: Well, No Acute Distress - Head Exam Head Exam: ATRAUMATIC, NORMAL INSPECTION, NORMOCEPHALIC - Eye Exam Eye Exam: EOMI, Normal appearance, PERRL Pupil Exam: NORMAL ACCOMODATION, PERRL - ENT Exam ENT Exam: Mucous Membranes Moist, Normal Exam - Neck Exam Neck Exam: Full ROM, Normal Inspection. absent: Lymphadenopathy - Respiratory Exam Respiratory Exam: Clear to Ausculation Bilateral, NORMAL BREATHING PATTERN. absent: Accessory Muscle Use, Rales, Rhonchi, Wheezes, Respiratory Distress, Stridor - Cardiovascular Exam Cardiovascular Exam: REGULAR RHYTHM, +S1, +S2. absent: Murmur - GI/Abdominal Exam GI & Abdominal Exam: Soft, Normal Bowel Sounds. absent: Tenderness - Extremities Exam Extremities Exam: Full ROM, Normal Capillary Refill, Normal Inspection. absent : Calf Tenderness, Joint Swelling, Pedal Edema - Back Exam Back Exam: NORMAL INSPECTION - Neurological Exam Neurological Exam: Alert, Awake, Oriented x3 Neuro motor strength exam: Left Upper Extremity: 5, Right Upper Extremity: 5, Left Lower Extremity: 5, Right Lower Extremity: 5 - Psychiatric Exam Psychiatric exam: Normal Affect, Normal Mood - Skin Skin Exam: Dry, Intact, Normal Color, Warm Assessment and Plan - Assessment and Plan (Free Text) Assessment: Patient is a 57 y/o female with PMHx of HTN, CVA (1997), and recent admission for SVT s/p cardioversion who presented to the hospital for complaints of atypical R-sided chest pain and R-upper back and shoulder pain. EKG showed sinus bradycardia with short CO interval, incomplete RBBB and non- specific ST abnormality. Troponins upon admission are negative x3. R-shoulder Xray is unremarkable. Patient's pain is relieved with Tylenol. Cardiology consulted for evaluation of chest pain. Patient's recent EKG indicates possible accessory pathway and will benefit from EP study for further evaluation. Plan: Atypical chest pain with abnormal EKG changes (accessory pathway) - Currently endorses atypical right sided cp with radiation to R-shoulder (R- shoulder xray negative), relieved with Tylenol - Recent EKG indicates likely involvement of accessory pathway, cannot r/o WPW syndrome. Evaluate further via EP study. - Troponin negative x3 - Vital signs stable - EKG 12/31/2017 : Sinus bradycardia with short CO, pre-excitation, rightward axis, incomplete right bundle branch block, nonspecific ST abnormality. Possible involvement of accessory pathway. - CXR 12/31/2017: mild cardiomegaly, biapical pleural thickening w/ upper granlomatous changes, scattered nodular densities in upper lung pillai, diffuse increased interstitial lung marking, patchy increased markings at lung bases, and nodular density at right lung base. - Cardiac Catherization (12/22/2017) : non obstructive coronary artery disease, normal left ventricular ejection fraction. - Lexiscan (12/20/17): no chest pain, arrhythmia during test; however, there was upsloping ST depression (see full report) History of SVT - EP study for accessory pathway involvement; cannot r/o WPW - Continue to monitor for arrhythmias via telemetry - Continue metoprolol tartrate 25 mg PO 12h. HTN -Continue HCTZ 12.5 mg daily -Losartan 50 mg daily -Metoprolol tartrate 25 mg PO Q12h History of CVA -Continue full dose aspirin 325 mg DT ppx: Heparin SC GI ppx: Pepcid Dispo: Continue to monitor patient on telemetry. Case was discussed and reviewed with Eeg Technologist Dr. Moreno. Please see further recommendations as per Dr. Moreno.
--- NOTE | 2018-01-02 19:53 | CP.PCM.PN ---
<Snehal Gong - Last Filed: 01/02/18 19:46> Subjective - Date & Time of Evaluation Date of Evaluation: 01/02/18 Time of Evaluation: 07:45 - Subjective Subjective: PGY-1 Snehal Gong D.O. Medicine progress note for Dr. Lutz's service: Patient is seen and examined this morning. She is sitting upright in a chair in no acute distress. She states that her right arm pain has improved with Tylenol. Patient was evaluated while walking. She is steady but has a slow gait. She denies chest pain, palpitations, and SOB. Objective - Vital Signs/Intake and Output Vital Signs (last 24 hours): Temp Pulse Resp BP Pulse Ox 98.4 F 77 20 108/66 96 01/02/18 15:00 01/02/18 18:47 01/02/18 15:00 01/02/18 15:00 01/02/18 15:00 - Medications Medications: Current Medications Acetaminophen (Tylenol 325mg Tab) 650 mg PO Q6 PRN PRN Reason: Pain, Mild (1-3) Last Admin: 01/01/18 21:07 Dose: 650 mg Aspirin (Aspirin) 325 mg PO DAILY [facility] Last Admin: 01/02/18 10:19 Dose: 325 mg Famotidine (Pepcid) 20 mg PO DAILY [facility] Last Admin: 01/02/18 10:19 Dose: 20 mg Heparin Sodium (Porcine) (Heparin) 5,000 units SC Q8 [facility] Last Admin: 01/02/18 13:25 Dose: 5,000 units Hydrochlorothiazide (Microzide) 12.5 mg PO DAILY [facility] Last Admin: 01/02/18 10:19 Dose: 12.5 mg Losartan Potassium (Cozaar) 50 mg PO DAILY [facility] Last Admin: 01/02/18 10:19 Dose: 50 mg Metoprolol Tartrate (Lopressor) 25 mg PO Q12H [facility] Pneumococcal Polyvalent Vaccine (Pneumovax 23 Vaccine) 0.5 ml SC .ONCE ONE Stop: 01/03/18 10:01 Rosuvastatin Calcium (Crestor) 5 mg PO HS [facility] Last Admin: 01/01/18 21:07 Dose: 5 mg - Labs Labs: 01/02/18 08:29 01/02/18 08:29 PT 13.0 SECONDS (9.7-12.2) H 12/31/17 13:11 INR 1.2 12/31/17 13:11 APTT 36 SECONDS (21-34) H 12/31/17 13:11 - Constitutional Appears: Well, No Acute Distress - Head Exam Head Exam: ATRAUMATIC, NORMAL INSPECTION, NORMOCEPHALIC - Eye Exam Eye Exam: EOMI, Normal appearance - ENT Exam ENT Exam: Mucous Membranes Moist, Normal Exam - Neck Exam Neck Exam: Normal Inspection - Respiratory Exam Respiratory Exam: Clear to Ausculation Bilateral, NORMAL BREATHING PATTERN - Cardiovascular Exam Cardiovascular Exam: REGULAR RHYTHM, +S1, +S2 - GI/Abdominal Exam GI & Abdominal Exam: Soft, Normal Bowel Sounds - Rectal Exam Rectal Exam: Deferred - Extremities Exam Extremities Exam: Full ROM, Normal Inspection - Back Exam Back Exam: NORMAL INSPECTION - Neurological Exam Neurological Exam: Alert, Awake, CN II-XII Intact, Normal Gait, Oriented x3 - Psychiatric Exam Psychiatric exam: Normal Affect, Normal Mood - Skin Skin Exam: Dry, Intact, Normal Color, Warm Assessment and Plan (1) Shoulder pain, right Status: Acute - Assessment and Plan (Free Text) Assessment: Patient is a 57 yo female with a recent h/o SVT corrected with cardioversion, HTN, and CVA with residual facial droop who presented with R- sided chest and shoulder pain. R shoulder XR was negative for acute fracture. EKG demonstrated some abnormalities and is being worked up for potential WPW. Plan: R shoulder pain, acute - R shoulder XR negative for acute pathology - Tylenol 650 mg PO q6hrs prn- relieves pain - PT consult- rec home with outpatient PT Chest pain with h/o CAD, resolved- r/o ACS - Monitor on telemetry- no events - Reproducible with palpation - Recent h/o SVT s/p cardioversion, currently in NSR (HR 50s-60s) - MOLINA negative x3 - EKG 12/31: sinus bradycardia (HR 56), short [place] interval, incomplete right bundle branch block (seen on prior EKG) - Cardiac cath last admission with Dr. Moreno: EF of 55%, non-obstructive coronary artery disease. Recommend aggressive medical management. - Pharmacologic stress test on 12/21/17: equivocal - Echocardiogram 12/19/17: shows EF of 70%, mild mitral and tricuspid regurgitation, mild pulmonary HTN, LVSF is normal - ASA 325 mg daily - Metoprolol 25 mg PO BID - Crestor 5 mg PO QHS - Cardiology consulted (Dr. Moreno)- rec EP consult prior to discharge - EP consulted (Dr. Rogers)- awaiting recs, left messages with office on 01/01 and 01/02 with description of pt and callback number History of SVT- pt admitted on 12/19/17 with SVT. multiple rounds of adenosine tried with no response. patient s/p cardioversion with resulting sinus rhythm - Monitor on telemetry - Metoprolol tartrate 25mg PO 12h - Thyroid studies done two weeks ago normal HTN, well controlled - HCTZ 12.5 daily - Losartan 50mg daily - Metoprolol tartrate 25mg PO Q12h History of CVA- patient has residual left mouth droop - Continue full dose aspirin 325mg IVF: not indicated VTE ppx: heparin 5000 units SC q8hrs GI ppx: Pepcid 20 mg PO daily Diet: heart healthy Code status: full code <Reddy Lutz H - Last Filed: 01/03/18 07:21> Objective - Vital Signs/Intake and Output Vital Signs (last 24 hours): Temp Pulse Resp BP Pulse Ox 97.9 F 57 L 20 108/70 98 01/02/18 23:21 01/03/18 00:22 01/02/18 23:21 01/02/18 23:21 01/02/18 23:21 Intake and Output: 01/03/18 01/03/18 06:59 18:59 Intake Total 700 Balance 700 - Medications Medications: Current Medications Acetaminophen (Tylenol 325mg Tab) 650 mg PO Q6 PRN PRN Reason: Pain, Mild (1-3) Last Admin: 01/01/18 21:07 Dose: 650 mg Aspirin (Aspirin) 325 mg PO DAILY [facility] Last Admin: 01/02/18 10:19 Dose: 325 mg Famotidine (Pepcid) 20 mg PO DAILY [facility] Last Admin: 01/02/18 10:19 Dose: 20 mg Heparin Sodium (Porcine) (Heparin) 5,000 units SC Q8 [facility] Last Admin: 01/03/18 06:14 Dose: 5,000 units Hydrochlorothiazide (Microzide) 12.5 mg PO DAILY [facility] Last Admin: 01/02/18 10:19 Dose: 12.5 mg Losartan Potassium (Cozaar) 50 mg PO DAILY [facility] Last Admin: 01/02/18 10:19 Dose: 50 mg Metoprolol Tartrate (Lopressor) 25 mg PO Q12H [facility] Last Admin: 01/02/18 19:51 Dose: 25 mg Pneumococcal Polyvalent Vaccine (Pneumovax 23 Vaccine) 0.5 ml SC .ONCE ONE Stop: 01/03/18 10:01 Rosuvastatin Calcium (Crestor) 5 mg PO HS [facility] Last Admin: 01/02/18 21:21 Dose: 5 mg - Labs Labs: 01/02/18 08:29 01/02/18 08:29 PT 13.0 SECONDS (9.7-12.2) H 12/31/17 13:11 INR 1.2 12/31/17 13:11 APTT 36 SECONDS (21-34) H 12/31/17 13:11 Attending/Attestation - Attestation I have personally seen and examined this patient.: Yes I have fully participated in the care of the patient.: Yes I have reviewed all pertinent clinical information, including history, physical exam and plan: Yes Notes (Text): 01/03/18 07:16 Medical attending: Patient was seen and examined by me. She was seen and examined by me. Agree with the above not by the resident The patient had negative troponins. Also the pain that was formerly at her right shoulder was much improved from previous. The patient is pending further cardiology evaluation if possible EP evaluation The patient remains on telemetry, the patient did not have any episodes of arrthmias recorded. The patient on exam we also had her walk with us in the hallway and the HR was stable. She did not become short of breath or developed chest pain when we were walking Reddy Ruizm
[2018-01-03] MEDS ORDERED: Pneumococcal 23-Valent Vaccine SC ONE (10:00)
--- NOTE | 2018-01-03 19:01 | CP.PCM.PN ---
<Snehal Gong - Last Filed: 01/03/18 18:58> Subjective - Date & Time of Evaluation Date of Evaluation: 01/03/18 Time of Evaluation: 07:30 - Subjective Subjective: PGY-1 Snehal Gong D.O. Medicine progress note for Dr. Lutz's service: Patient is seen and examined this morning. She is sitting upright in a chair in no acute distress. She states that her right arm pain has improved with Tylenol , and she has not needed any today. She enjoys working with PT. Patient was evaluated while walking, and she denies chest pain, palpitations, and SOB. Objective - Vital Signs/Intake and Output Vital Signs (last 24 hours): Temp Pulse Resp BP Pulse Ox 98.2 F 70 20 101/70 98 01/03/18 15:00 01/03/18 17:51 01/03/18 15:00 01/03/18 15:00 01/03/18 15:00 Intake and Output: 01/03/18 01/03/18 06:59 18:59 Intake Total 700 Balance 700 - Medications Medications: Current Medications Acetaminophen (Tylenol 325mg Tab) 650 mg PO Q6 PRN PRN Reason: Pain, Mild (1-3) Last Admin: 01/01/18 21:07 Dose: 650 mg Aspirin (Aspirin) 325 mg PO DAILY [facility] Last Admin: 01/03/18 10:55 Dose: 325 mg Famotidine (Pepcid) 20 mg PO DAILY [facility] Last Admin: 01/03/18 10:55 Dose: 20 mg Heparin Sodium (Porcine) (Heparin) 5,000 units SC Q8 [facility] Last Admin: 01/03/18 13:49 Dose: 5,000 units Hydrochlorothiazide (Microzide) 12.5 mg PO DAILY [facility] Last Admin: 01/03/18 10:55 Dose: 12.5 mg Losartan Potassium (Cozaar) 50 mg PO DAILY [facility] Last Admin: 01/03/18 10:55 Dose: 50 mg Metoprolol Tartrate (Lopressor) 25 mg PO Q12H [facility] Last Admin: 01/03/18 08:00 Dose: Not Given Rosuvastatin Calcium (Crestor) 5 mg PO HS [facility] Last Admin: 01/02/18 21:21 Dose: 5 mg - Labs Labs: 01/02/18 08:29 01/02/18 08:29 PT 13.0 SECONDS (9.7-12.2) H 12/31/17 13:11 INR 1.2 12/31/17 13:11 APTT 36 SECONDS (21-34) H 12/31/17 13:11 - Constitutional Appears: Well, Non-toxic, No Acute Distress - Head Exam Head Exam: ATRAUMATIC, NORMAL INSPECTION, NORMOCEPHALIC - Eye Exam Eye Exam: EOMI, Normal appearance, PERRL - ENT Exam ENT Exam: Mucous Membranes Moist, Normal Exam - Neck Exam Neck Exam: Normal Inspection - Respiratory Exam Respiratory Exam: Clear to Ausculation Bilateral, NORMAL BREATHING PATTERN - Cardiovascular Exam Cardiovascular Exam: REGULAR RHYTHM, +S1, +S2 - GI/Abdominal Exam GI & Abdominal Exam: Soft, Normal Bowel Sounds. absent: Tenderness - Rectal Exam Rectal Exam: Deferred - Extremities Exam Extremities Exam: Normal Inspection - Back Exam Back Exam: NORMAL INSPECTION - Neurological Exam Neurological Exam: Alert, Awake, CN II-XII Intact, Normal Gait, Oriented x3 - Psychiatric Exam Psychiatric exam: Normal Affect, Normal Mood - Skin Skin Exam: Dry, Intact, Normal Color, Warm Assessment and Plan (1) Shoulder pain, right Status: Acute (2) EKG abnormalities Status: Acute - Assessment and Plan (Free Text) Assessment: Patient is a 57 yo female with a recent h/o SVT corrected with cardioversion, HTN, and CVA with residual facial droop who presented with R- sided chest and shoulder pain. R shoulder XR was negative for acute fracture. EKG demonstrated some abnormalities and is being worked up for potential WPW. Plan: Chest pain with h/o CAD, resolved- r/o ACS - Monitor on telemetry- no events - Reproducible with palpation - Recent h/o SVT s/p cardioversion, currently in NSR (HR 50s-60s) - MOLINA negative x3 - EKG 12/31: sinus bradycardia (HR 56), short MT interval, incomplete right bundle branch block (seen on prior EKG) - Cardiac cath last admission with Dr. Moreno: EF of 55%, non-obstructive coronary artery disease. Recommend aggressive medical management. - Pharmacologic stress test on 12/21/17: equivocal - Echocardiogram 12/19/17: shows EF of 70%, mild mitral and tricuspid regurgitation, mild pulmonary HTN, LVSF is normal - ASA 325 mg daily - Metoprolol 25 mg PO BID - Crestor 5 mg PO QHS - Cardiology consulted (Dr. Moreno)- rec EP consult prior to discharge - EP consulted (Dr. Rogers)- awaiting recs, left messages with office on 01/01 and 01/02 with description of pt and callback number, spoke with Dr. Quinteros re consult today 01/03, Dr. Lutz also spoke with Dr. Rogers via phone today on 01/03 who stated that he would see the patient today R shoulder pain, acute, improving - R shoulder XR negative for acute pathology - Tylenol 650 mg PO q6hrs prn- relieves pain - PT consult- rec home with outpatient PT History of SVT- pt admitted on 12/19/17 with SVT. multiple rounds of adenosine tried with no response, pt s/p cardioversion with resulting sinus rhythm - Monitor on telemetry- no events observed - Metoprolol tartrate 25mg PO 12h - Thyroid studies done two weeks ago normal HTN, well controlled - HCTZ 12.5 daily - Losartan 50mg daily - Metoprolol tartrate 25mg PO Q12h History of CVA- patient has residual left mouth droop - Continue full dose aspirin 325mg IVF: not indicated VTE ppx: heparin 5000 units SC q8hrs GI ppx: Pepcid 20 mg PO daily Diet: heart healthy Code status: full code Dispo: Awaiting recommendations from Dr. Rogers <Reddy Lutz - Last Filed: 01/04/18 07:47> Objective - Vital Signs/Intake and Output Vital Signs (last 24 hours): Temp Pulse Resp BP Pulse Ox 98.2 F 64 18 107/62 99 01/04/18 00:55 01/04/18 00:55 01/04/18 00:55 01/04/18 00:55 01/04/18 00:55 Intake and Output: 01/04/18 01/04/18 06:59 18:59 Intake Total 600 Balance 600 - Medications Medications: Current Medications Acetaminophen (Tylenol 325mg Tab) 650 mg PO Q6 PRN PRN Reason: Pain, Mild (1-3) Last Admin: 01/01/18 21:07 Dose: 650 mg Amiodarone HCl (Cordarone) 200 mg PO TID [facility] Last Admin: 01/03/18 21:59 Dose: 200 mg Aspirin (Aspirin) 325 mg PO DAILY [facility] Last Admin: 01/03/18 10:55 Dose: 325 mg Famotidine (Pepcid) 20 mg PO DAILY [facility] Last Admin: 01/03/18 10:55 Dose: 20 mg Heparin Sodium (Porcine) (Heparin) 5,000 units SC Q8 [facility] Last Admin: 01/04/18 05:51 Dose: 5,000 units Hydrochlorothiazide (Microzide) 12.5 mg PO DAILY [facility] Last Admin: 01/03/18 10:55 Dose: 12.5 mg Losartan Potassium (Cozaar) 50 mg PO DAILY [facility] Last Admin: 01/03/18 10:55 Dose: 50 mg Metoprolol Tartrate (Lopressor) 25 mg PO Q12H [facility] Last Admin: 01/03/18 20:07 Dose: 25 mg Rosuvastatin Calcium (Crestor) 5 mg PO HS [facility] Last Admin: 01/03/18 21:36 Dose: 5 mg - Labs Labs: 01/02/18 08:29 01/02/18 08:29 PT 13.0 SECONDS (9.7-12.2) H 12/31/17 13:11 INR 1.2 12/31/17 13:11 APTT 36 SECONDS (21-34) H 12/31/17 13:11 Attending/Attestation - Attestation I have personally seen and examined this patient.: Yes I have fully participated in the care of the patient.: Yes I have reviewed all pertinent clinical information, including history, physical exam and plan: Yes Notes (Text): 01/04/18 07:47 Medical attending: Patient was seen and examined by me, the patient was seen with the medical residents. I reviewed the above note by medical supply technician and agree with the above. On exam today we had the patient walk around, she did not become short of breath for have palpitations when walking around with us. She did not need assistance walking around. I also spoke with cardiology as well and was advised by EP cardiology to start amiodarone which we have done. Thank you very much, Reddy Lutz
--- NOTE | 2018-01-03 20:00 | CP.PCM.CON ---
History of Present Illness - History of Present Illness History of Present Illness: EP consult Chart imaging reviewed Seen and examined and interviewed with a medical student interpreting 57 year old presented with left shoulder pain; a week prior she was admitted with palpitations dizziness heart rates of 240 with a narrow complex tachycardia unresponsive to adenosine and cardioverted; She had a cardiac cath which showed non obstructive disease; she was discharged to home on metoprolol Past medical: systemic hypertension Migraine Past surgery: none Denied smoking alcohol or substance abuse She was menopausal (since age 49); Medications: reviewed Exam: no distress Normal venous pressures No goiter Clear lungs Loud S1; no S3 or rub EKG: sinus; pre-excitation EKG: narrow complex tachycardia regular at [address] segment depressions Echo: normal LV systolic function; no suggestion of Ebsteins anomaly Past Patient History - Past Medical History & Family History Past Medical History?: Yes - Past Social History Smoking Status: Never Smoked - CARDIAC Hx Hypercholesterolemia: Yes Hx Hypertension: Yes - PULMONARY Hx Respiratory Disorders: No - NEUROLOGICAL HX Cerebrovascular Accident: Yes - HEENT Hx HEENT Problems: No - RENAL Hx Chronic Kidney Disease: No - ENDOCRINE/METABOLIC Hx Endocrine Disorders: No - HEMATOLOGICAL/ONCOLOGICAL Hx Blood Disorders: No - INTEGUMENTARY Hx Dermatological Problems: No - MUSCULOSKELETAL/RHEUMATOLOGICAL Hx Falls: No - GASTROINTESTINAL Hx Gastrointestinal Disorders: No - GENITOURINARY/GYNECOLOGICAL Hx Genitourinary Disorders: No - PSYCHIATRIC Hx Substance Use: No - SURGICAL HISTORY Hx Surgeries: No - ANESTHESIA Hx Anesthesia: No Hx Anesthesia Reactions: No Hx Malignant Hyperthermia: No Meds Allergies/Adverse Reactions: Allergies Allergy/AdvReac Type Severity Reaction Status Date / Time No Known Allergies Allergy Verified 12/19/17 10:38 - Medications Medications: Current Medications Acetaminophen (Tylenol 325mg Tab) 650 mg PO Q6 PRN PRN Reason: Pain, Mild (1-3) Last Admin: 01/01/18 21:07 Dose: 650 mg Aspirin (Aspirin) 325 mg PO DAILY [facility] Last Admin: 01/03/18 10:55 Dose: 325 mg Famotidine (Pepcid) 20 mg PO DAILY [facility] Last Admin: 01/03/18 10:55 Dose: 20 mg Heparin Sodium (Porcine) (Heparin) 5,000 units SC Q8 [facility] Last Admin: 01/03/18 13:49 Dose: 5,000 units Hydrochlorothiazide (Microzide) 12.5 mg PO DAILY [facility] Last Admin: 01/03/18 10:55 Dose: 12.5 mg Losartan Potassium (Cozaar) 50 mg PO DAILY [facility] Last Admin: 01/03/18 10:55 Dose: 50 mg Metoprolol Tartrate (Lopressor) 25 mg PO Q12H [facility] Last Admin: 01/03/18 08:00 Dose: Not Given Rosuvastatin Calcium (Crestor) 5 mg PO HS [facility] Last Admin: 01/02/18 21:21 Dose: 5 mg Results - Vital Signs Recent Vital Signs: Last Vital Signs Temp 98.2 F 01/03/18 15:00 Pulse 70 01/03/18 17:51 Resp 20 01/03/18 15:00 BP 101/70 01/03/18 15:00 Pulse Ox 98 01/03/18 15:00 - Labs Result Diagrams: 01/02/18 08:29 01/02/18 08:29 Assessment & Plan - Assessment and Plan (Free Text) Assessment: 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
--- NOTE | 2018-01-04 17:52 | CP.PCM.PN ---
<Snehal oGng - Last Filed: 01/04/18 17:49> Subjective - Date & Time of Evaluation Date of Evaluation: 01/04/18 Time of Evaluation: 07:40 - Subjective Subjective: PGY-1 Snehal Gong D.O. Medicine progress note for Dr. Lutz's service: Patient is seen and examined this morning. Her R shoulder pain has improved significantly and she did not require any Tylenol overnight. She is feeling overall well. Patient is agreeable to [place] [facility] [place] WPW. She denies chest pain, palpitations, and SOB. Objective - Vital Signs/Intake and Output Vital Signs (last 24 hours): Temp Pulse Resp BP Pulse Ox 97.7 F 64 20 97/61 L 98 01/04/18 15:00 01/04/18 16:48 01/04/18 15:00 01/04/18 15:00 01/04/18 15:00 Intake and Output: 01/04/18 01/04/18 06:59 18:59 Intake Total 600 Balance 600 - Medications Medications: Current Medications Acetaminophen (Tylenol 325mg Tab) 650 mg PO Q6 PRN PRN Reason: Pain, Mild (1-3) Last Admin: 01/01/18 21:07 Dose: 650 mg Amiodarone HCl (Cordarone) 200 mg PO TID [facility] Last Admin: 01/04/18 17:18 Dose: 200 mg Aspirin (Aspirin) 325 mg PO DAILY [facility] Last Admin: 01/04/18 10:37 Dose: 325 mg Famotidine (Pepcid) 20 mg PO DAILY [facility] Last Admin: 01/04/18 10:37 Dose: 20 mg Heparin Sodium (Porcine) (Heparin) 5,000 units SC Q8 [facility] Last Admin: 01/04/18 13:39 Dose: 5,000 units Hydrochlorothiazide (Microzide) 12.5 mg PO DAILY [facility] Last Admin: 01/04/18 10:37 Dose: 12.5 mg Losartan Potassium (Cozaar) 50 mg PO DAILY [facility] Last Admin: 01/04/18 10:37 Dose: 50 mg Metoprolol Tartrate (Lopressor) 25 mg PO Q12H [facility] Last Admin: 01/03/18 20:07 Dose: 25 mg Rosuvastatin Calcium (Crestor) 5 mg PO HS [facility] Last Admin: 01/03/18 21:36 Dose: 5 mg - Labs Labs: 01/02/18 08:29 01/02/18 08:29 PT 13.0 SECONDS (9.7-12.2) H 12/31/17 13:11 INR 1.2 12/31/17 13:11 APTT 36 SECONDS (21-34) H 12/31/17 13:11 - Constitutional Appears: Well, Non-toxic, No Acute Distress - Head Exam Head Exam: ATRAUMATIC, NORMAL INSPECTION, NORMOCEPHALIC - Eye Exam Eye Exam: EOMI, Normal appearance - ENT Exam ENT Exam: Mucous Membranes Moist, Normal Exam - Neck Exam Neck Exam: Normal Inspection - Respiratory Exam Respiratory Exam: Clear to Ausculation Bilateral, NORMAL BREATHING PATTERN - Cardiovascular Exam Cardiovascular Exam: REGULAR RHYTHM, +S1, +S2 - GI/Abdominal Exam GI & Abdominal Exam: Soft, Normal Bowel Sounds - Rectal Exam Rectal Exam: Deferred - Extremities Exam Extremities Exam: Normal Capillary Refill, Normal Inspection - Back Exam Back Exam: NORMAL INSPECTION - Neurological Exam Neurological Exam: Alert, Awake, CN II-XII Intact, Normal Gait, Oriented x3 - Psychiatric Exam Psychiatric exam: Normal Affect, Normal Mood - Skin Skin Exam: Dry, Intact, Normal Color, Warm Assessment and Plan (1) Shoulder pain, right Status: Acute (2) EKG abnormalities Status: Acute - Assessment and Plan (Free Text) Assessment: Patient is a 57 yo female with a recent h/o SVT corrected with cardioversion, HTN, and CVA with residual facial droop who presented with R- sided chest and shoulder pain. R shoulder XR was negative for acute fracture. 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 She will get an ablation [place] [facility] [place]. Plan: EKG abnormalities with history of SVT- 2/2 WPW - For SVT 12/19/17: multiple rounds of adenosine tried with no response, pt s/ p cardioversion with resulting sinus rhythm - Monitor on telemetry- no events observed, delta waves seen - Thyroid studies done two weeks ago normal - Stop metoprolol - Start amiodarone 200 mg PO TID (01/03) - Pt scheduled for catherter ablation procedure tomorrow 01/[address] Rogers at [facility] - EP consulted (Dr. Rogers)- rec ablation, BB, CCB, dig contraindicated Chest pain with h/o CAD, resolved- r/o ACS - Monitor on telemetry- no events - Reproducible with palpation - Recent h/o SVT s/p cardioversion, currently in NSR (HR 50s-60s) - MOLINA negative x3 - EKG 12/31: sinus bradycardia (HR 56), short [place] interval, incomplete right bundle branch block (seen on prior EKG) - Cardiac cath last admission with Dr. Moreno: EF of 55%, non-obstructive coronary artery disease. Recommend aggressive medical management. - Pharmacologic stress test on 12/21/17: equivocal - Echocardiogram 12/19/17: shows EF of 70%, mild mitral and tricuspid regurgitation, mild pulmonary HTN, LVSF is normal - ASA 325 mg daily - Crestor 5 mg PO QHS - Cardiology consulted (Dr. Moreno)- rec EP consult prior to discharge R shoulder pain, acute, improving - R shoulder XR negative for acute pathology - Tylenol 650 mg PO q6hrs prn- relieves pain - PT consult- rec home with outpatient PT HTN, well controlled - HCTZ 12.5 daily - Losartan 50mg daily History of CVA- patient has residual left mouth droop - Continue full dose aspirin 325mg IVF: not indicated VTE ppx: heparin 5000 units SC q8hrs- HELD pre-op GI ppx: Pepcid 20 mg PO daily Diet: heart healthy Code status: full code Dispo: Abl[place] tomorrow by Dr. Rogers [place] [facility] Transfer back to [facility] with likely discharge same day. Follow-up cardio/EP recs for medications upon discharge. <Reddy Lutz - Last Filed: 01/04/18 19:01> Objective - Vital Signs/Intake and Output Vital Signs (last 24 hours): Temp Pulse Resp BP Pulse Ox 97.7 F 64 20 97/61 L 98 01/04/18 15:00 01/04/18 16:48 01/04/18 15:00 01/04/18 15:00 01/04/18 15:00 - Medications Medications: Current Medications Acetaminophen (Tylenol 325mg Tab) 650 mg PO Q6 PRN PRN Reason: Pain, Mild (1-3) Last Admin: 01/01/18 21:07 Dose: 650 mg Amiodarone HCl (Cordarone) 200 mg PO TID [facility] Last Admin: 01/04/18 17:18 Dose: 200 mg Aspirin (Aspirin) 325 mg PO DAILY [facility] Last Admin: 01/04/18 10:37 Dose: 325 mg Famotidine (Pepcid) 20 mg PO DAILY [facility] Last Admin: 01/04/18 10:37 Dose: 20 mg Heparin Sodium (Porcine) (Heparin) 5,000 units SC Q8 [facility] Last Admin: 01/04/18 13:39 Dose: 5,000 units Hydrochlorothiazide (Microzide) 12.5 mg PO DAILY [facility] Last Admin: 01/04/18 10:37 Dose: 12.5 mg Losartan Potassium (Cozaar) 50 mg PO DAILY [facility] Last Admin: 01/04/18 10:37 Dose: 50 mg Metoprolol Tartrate (Lopressor) 25 mg PO Q12H [facility] Last Admin: 01/03/18 20:07 Dose: 25 mg Rosuvastatin Calcium (Crestor) 5 mg PO HS [facility] Last Admin: 01/03/18 21:36 Dose: 5 mg - Labs Labs: 01/02/18 08:29 01/02/18 08:29 PT 13.0 SECONDS (9.7-12.2) H 12/31/17 13:11 INR 1.2 12/31/17 13:11 APTT 36 SECONDS (21-34) H 12/31/17 13:11 Attending/Attestation - Attestation I have personally seen and examined this patient.: Yes I have fully participated in the care of the patient.: Yes I have reviewed all pertinent clinical information, including history, physical exam and plan: Yes Notes (Text): 01/04/18 19:01 Medical attending: Patient was seen and examined by me, agrees the above note by the dental assistant medical assistant. The patient was not in any acute distress. She did not have any palpitations overnight last night we started the patient on amiodarone by mouth 3 times a day. We discontinued the the patient from the beta jac. Because of the EKG and concerning for WPW she cannot be on things like Cardizem or beta blockers. Tomorrow the patient is pending be moved over to [facility] for an ablation per my discussion with cardiology after that she'll be moved back to [facility]
--- NOTE | 2018-01-05 10:18 | CP.PCM.PN ---
<Eliezer Cage - Last Filed: 01/05/18 18:21> Subjective - Date & Time of Evaluation Date of Evaluation: 01/05/18 Time of Evaluation: 10:18 - Subjective Subjective: Pt seen and examined at bedside. pt trans[place] [facility] [place] Pt denies any chest pain, syncope, sudden palpitations, f/c n/v pain on inspiriation. Objective - Vital Signs/Intake and Output Vital Signs (last 24 hours): Temp Pulse Resp BP Pulse Ox 98.3 F 62 20 113/70 97 01/05/18 00:00 01/05/18 00:00 01/05/18 00:00 01/05/18 00:00 01/05/18 00:00 Intake and Output: 01/05/18 01/05/18 06:59 18:59 Intake Total 800 Balance 800 - Medications Medications: Current Medications Acetaminophen (Tylenol 325mg Tab) 650 mg PO Q6 PRN PRN Reason: Pain, Mild (1-3) Last Admin: 01/01/18 21:07 Dose: 650 mg Amiodarone HCl (Cordarone) 200 mg PO TID [facility] Last Admin: 01/04/18 17:18 Dose: 200 mg Aspirin (Aspirin) 325 mg PO DAILY [facility] Last Admin: 01/04/18 10:37 Dose: 325 mg Famotidine (Pepcid) 20 mg PO DAILY [facility] Last Admin: 01/04/18 10:37 Dose: 20 mg Heparin Sodium (Porcine) (Heparin) 5,000 units SC Q8 [facility] Last Admin: 01/04/18 13:39 Dose: 5,000 units Hydrochlorothiazide (Microzide) 12.5 mg PO DAILY [facility] Last Admin: 01/04/18 10:37 Dose: 12.5 mg Losartan Potassium (Cozaar) 50 mg PO DAILY [facility] Last Admin: 01/04/18 10:37 Dose: 50 mg Metoprolol Tartrate (Lopressor) 25 mg PO Q12H [facility] Last Admin: 01/03/18 20:07 Dose: 25 mg Rosuvastatin Calcium (Crestor) 5 mg PO HS [facility] Last Admin: 01/04/18 21:15 Dose: 5 mg - Labs Labs: 01/02/18 08:29 01/02/18 08:29 PT 13.0 SECONDS (9.7-12.2) H 12/31/17 13:11 INR 1.2 12/31/17 13:11 APTT 36 SECONDS (21-34) H 12/31/17 13:11 - Additional Findings Additional findings: - Constitutional Appears: Well, Non-toxic, No Acute Distress - Head Exam Head Exam: ATRAUMATIC, NORMAL INSPECTION, NORMOCEPHALIC - Eye Exam Eye Exam: EOMI, Normal appearance - ENT Exam ENT Exam: Mucous Membranes Moist, Normal Exam - Neck Exam Neck Exam: Normal Inspection - Respiratory Exam Respiratory Exam: Clear to Ausculation Bilateral, NORMAL BREATHING PATTERN - Cardiovascular Exam Cardiovascular Exam: REGULAR RHYTHM, +S1, +S2 - GI/Abdominal Exam GI & Abdominal Exam: Soft, Normal Bowel Sounds - Rectal Exam Rectal Exam: Deferred - Extremities Exam Extremities Exam: Normal Capillary Refill, Normal Inspection - Back Exam Back Exam: NORMAL INSPECTION - Neurological Exam Neurological Exam: Alert, Awake, CN II-XII Intact, Normal Gait, Oriented x3 - Psychiatric Exam Psychiatric exam: Normal Affect, Normal Mood - Skin Skin Exam: Dry, Intact, Normal Color, Warm Assessment and Plan - Assessment and Plan (Free Text) Plan: Assessment: Patient is a 57 yo female with a recent h/o SVT corrected with cardioversion, HTN, and CVA with residual facial droop who presented with R- sided chest and shoulder pain. R shoulder XR was negative for acute fracture. 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 She will get an ablation at [facility] [place] on 01/05. Plan: EKG abnormalities with history of SVT- 2/2 WPW - For SVT 12/19/17: multiple rounds of adenosine tried with no response, pt s/ p cardioversion with resulting sinus rhythm - Monitor on telemetry- no events observed, delta waves seen - Thyroid studies done two weeks ago normal - metoprolol 25mg PO bid restarted as per Dr Moreno - hold amiodarone - Pt completed catherter ablation procedure today 01/[address] Rogers at [facility] - EP consulted (Dr. Rogers)- rec post procedure ASA 325mg po Chest pain with h/o CAD, resolved- r/o ACS - Monitor on telemetry- no events - Reproducible with palpation - Recent h/o SVT s/p cardioversion, currently in NSR (HR 50s-60s) - MOLINA negative x3 - EKG 12/31: sinus bradycardia (HR 56), short [place] interval, incomplete right bundle branch block (seen on prior EKG) - Cardiac cath last admission with Dr. Moreno: EF of 55%, non-obstructive coronary artery disease. Recommend aggressive medical management. - Pharmacologic stress test on 12/21/17: equivocal - Echocardiogram 12/19/17: shows EF of 70%, mild mitral and tricuspid regurgitation, mild pulmonary HTN, LVSF is normal - ASA 325 mg daily - Crestor 5 mg PO QHS - Cardiology consulted (Dr. Moreno)- rec EP consult prior to discharge R shoulder pain, acute, improving - R shoulder XR negative for acute pathology - Tylenol 650 mg PO q6hrs prn- relieves pain - PT consult- rec home with outpatient PT HTN, well controlled - HCTZ 12.5 daily - Losartan 50mg daily History of CVA- patient has residual left mouth droop - Continue full dose aspirin 325mg IVF: not indicated VTE ppx: heparin 5000 units SC q8hrs- HELD post procedure GI ppx: Pepcid 20 mg PO daily Diet: heart healthy Code status: full code dispo: pt held for observation post procedure. <Reddy Lutz H - Last Filed: 01/06/18 11:50> Objective - Vital Signs/Intake and Output Vital Signs (last 24 hours): Temp Pulse Resp BP Pulse Ox 98.4 F 64 20 114/68 98 01/06/18 07:56 01/06/18 07:56 01/06/18 07:56 01/06/18 07:56 01/06/18 07:56 Intake and Output: 01/06/18 01/06/18 06:59 18:59 Intake Total 620 Balance 620 - Labs Labs: 01/06/18 07:10 01/06/18 07:10 PT 13.0 SECONDS (9.7-12.2) H 12/31/17 13:11 INR 1.2 12/31/17 13:11 APTT 36 SECONDS (21-34) H 12/31/17 13:11 Attending/Attestation - Attestation I have personally seen and examined this patient.: Yes I have fully participated in the care of the patient.: Yes I have reviewed all pertinent clinical information, including history, physical exam and plan: Yes Notes (Text): 01/06/18 11:42 Medical attending: Patient was seen and examined by me. Agree with the above note by the resident Patient has returned from [facility] for the cardiac ablation for WPW. She says she feels well. Denied shortness of breath, denied palpitations, denied abdominal pain, denied headache. Reddy Lutz
[2018-01-05 19:38] LABS: BASO % 0.4 % (0.0-2.0); EOS % 0.2 % (0.0-4.0); HEMOGLOBIN 13.2 g/dL (11.0-16.0); LYMPH # 1.4 K/uL (1.0-4.3); LYMPH % 15.8 % (20.0-40.0); MEAN CORPUSCULAR HEMOGLOBIN 29.9 pg (27.0-31.0); MEAN CORPUSCULAR HGB CONC 35.1 g/dL (33.0-37.0); MEAN PLATELET VOLUME 8.2 fL (7.2-11.7); MONO # 0.6 K/uL (0.0-0.8); MONO % 6.8 % (0.0-10.0); NEUT % 76.8 % (50.0-75.0); RBC 4.42 Mil/uL (3.80-5.20); RED CELL DISTRIBUTION WIDTH 13.1 % (11.5-14.5); WHITE BLOOD COUNT 9.2 K/uL (4.8-10.8)
[2018-01-05 20:07] LABS: BLOOD UREA NITROGEN 13 mg/dL (7-17); CALCIUM 8.8 mg/dl (8.6-10.4); GFR NON-AFRICAN AMERICAN > 60
[2018-01-06 01:12] VITALS: RESP 20; O2SAT 98
[2018-01-06 07:22] LABS: BASO % 0.4 % (0.0-2.0); EOS # 0.1 K/uL (0.0-0.7); EOS % 0.9 % (0.0-4.0); HEMOGLOBIN 13.1 g/dL (11.0-16.0); LYMPH # 1.4 K/uL (1.0-4.3); MEAN CELL VOLUME 84.6 fL (81.0-99.0); MEAN CORPUSCULAR HGB CONC 35.5 g/dL (33.0-37.0); MEAN PLATELET VOLUME 8.4 fL (7.2-11.7); MONO # 0.6 K/uL (0.0-0.8); NEUT # 5.1 K/uL (1.8-7.0); NEUT % 71.7 % (50.0-75.0); RBC 4.37 Mil/uL (3.80-5.20); RED CELL DISTRIBUTION WIDTH 13.2 % (11.5-14.5); WHITE BLOOD COUNT 7.1 K/uL (4.8-10.8)
[2018-01-06 07:56] VITALS: BP 114/68; PULSE 64; TEMP 98.4
[2018-01-06 08:16] LABS: ALB/GLOB RATIO 1.3 (1.0-2.1); ALBUMIN 3.8 g/dL (3.5-5.0); ALT/SGPT 37 U/L (9-52); AST/SGOT 33 U/L (14-36); BLOOD UREA NITROGEN 13 mg/dL (7-17); GFR NON-AFRICAN AMERICAN > 60
--- NOTE | 2018-01-06 08:30 | CP.PCM.DIS ---
Provider - Provider Date of Admission: 01/01/18 16:22 Attending physician: Reddy Lutz DO Time Spent in preparation of Discharge (in minutes): 45 Diagnosis - Discharge Diagnosis (1) Rufmq-Xcenhvfry-Dglpv (WPW) pattern Status: Chronic (2) Syncope Status: Resolved (3) Chest pain Status: Resolved (4) EKG abnormalities Status: Chronic Priority: High (5) History of CVA (cerebrovascular accident) Status: Chronic Hospital Course - Lab Results Lab Results: Micro Results 01/01/18 03:08 Nose MRSA Culture (Admit) - Final MRSA NOT DETECTED Most Recent Lab Values WBC 7.1 K/uL (4.8-10.8) 01/06/18 07:10 RBC 4.37 Mil/uL (3.80-5.20) 01/06/18 07:10 Hgb 13.1 g/dL (11.0-16.0) 01/06/18 07:10 Hct 37.0 % (34.0-47.0) 01/06/18 07:10 MCV 84.6 fL (81.0-99.0) 01/06/18 07:10 MCH 30.0 pg (27.0-31.0) 01/06/18 07:10 MCHC 35.5 g/dL (33.0-37.0) 01/06/18 07:10 RDW 13.2 % (11.5-14.5) 01/06/18 07:10 Plt Count 239 K/uL (130-400) 01/06/18 07:10 MPV 8.4 fL (7.2-11.7) 01/06/18 07:10 Neut % (Auto) 71.7 % (50.0-75.0) 01/06/18 07:10 Lymph % (Auto) 19.0 % (20.0-40.0) L 01/06/18 07:10 [place] % (Auto) 8.0 % (0.0-10.0) 01/06/18 07:10 Eos % (Auto) 0.9 % (0.0-4.0) 01/06/18 07:10 Baso % (Auto) 0.4 % (0.0-2.0) 01/06/18 07:10 Neut # (Auto) 5.1 K/uL (1.8-7.0) 01/06/18 07:10 Lymph # (Auto) 1.4 K/uL (1.0-4.3) 01/06/18 07:10 [place] # (Auto) 0.6 K/uL (0.0-0.8) 01/06/18 07:10 Eos # (Auto) 0.1 K/uL (0.0-0.7) 01/06/18 07:10 Baso # (Auto) 0.0 K/uL (0.0-0.2) 01/06/18 07:10 PT 13.0 SECONDS (9.7-12.2) H 12/31/17 13:11 INR 1.2 12/31/17 13:11 APTT 36 SECONDS (21-34) H 12/31/17 13:11 Sodium 138 mmol/L (132-148) 01/06/18 07:10 Potassium 4.2 mmol/L (3.6-5.2) 01/06/18 07:10 Chloride 105 mmol/L (98-107) 01/06/18 07:10 Carbon Dioxide 23 mmol/L (22-30) 01/06/18 07:10 Anion Gap 15 (10-20) 01/06/18 07:10 BUN 13 mg/dL (7-17) 01/06/18 07:10 Creatinine 0.6 mg/dL (0.7-1.2) L 01/06/18 07:10 Est GFR ( Amer) > 60 01/06/18 07:10 Est GFR (Non-Af Amer) > 60 01/06/18 07:10 Random Glucose 90 mg/dL (65-105) 01/06/18 07:10 Calcium 9.0 mg/dl (8.6-10.4) 01/06/18 07:10 Phosphorus 4.4 mg/dL (2.5-4.5) 01/06/18 07:10 Magnesium 2.0 mg/dL (1.6-2.3) 01/06/18 07:10 Total Bilirubin 0.6 mg/dL (0.2-1.3) 01/06/18 07:10 AST 33 U/L (14-36) 01/06/18 07:10 ALT 37 U/L (9-52) 01/06/18 07:10 Alkaline Phosphatase 91 U/L (38-126) 01/06/18 07:10 Total Creatine Kinase 24 U/L (30-135) L 01/01/18 01:23 CK-MB (Mass) 0.43 ng/mL (0.0-3.38) 01/01/18 01:23 Troponin I < 0.0120 ng/mL (0.00-0.120) 01/01/18 01:23 Total Protein 6.7 g/dL (6.3-8.3) 01/06/18 07:10 Albumin 3.8 g/dL (3.5-5.0) 01/06/18 07:10 Globulin 2.9 gm/dL (2.2-3.9) 01/06/18 07:10 Albumin/Globulin Ratio 1.3 (1.0-2.1) 01/06/18 07:10 - Hospital Course Hospital Course: Patient is a 57 year old female with past medical history of hypertension, 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 Patient states that the pain began this morning around 3 AM. She also admits to dyspnea on exertion as well as pain with deep inspiration. She rates the chest pain as 9/10 pain at its worst. She states that with the chest pain she also experienced headache and dizziness. She denies any strenuous exercise since her hospital discharge. She states she had follow up appointment with Dr. Moreno scheduled for this coming January 05 at 3:30pm. She reports taking all discharge medications as prescribed. She denies nausea, vomiting, diarrhea, constipation , diaphoresis. PMD: Dr. Johnson PMHx: HTN, CVA, SVT Meds: lopressor 25mg PO q12h, losartan 50mg daily, lipitor 10mg, aspirin 325mg, HCTZ 12.5 daily PSHx: none Allergies: NKDA Social: denies drugs, tobacco, alcohol. Family history: mother: HTN, hypercholesterolemia, father-, cancer. siblings: HTN, hypercholesterolemia. Proxy: Son, Shar Scanlon [phone] HOSPITAL COURSE: Pt admitted for random syncope. Pt found to have oliva parkinson white abnormality. For SVT 12/19/17: multiple rounds of adenosine tried with no response, pt s/p cardioversion with resulting sinus rhythm - Monitor on telemetry- no events observed, delta waves seen - Thyroid studies done two weeks ago normal - metoprolol 25mg PO bid restarted as per Dr Moreno - held amiodarone - Pt completed catherter [place] 01[place] [place] [facility] [place] consulted (Dr. Rogers)- rec post procedure ASA 325mg po Chest pain with h/o CAD, resolved- r/o ACS - Monitor on telemetry- no events - Reproducible with palpation - Recent h/o SVT s/p cardioversion, currently in NSR (HR 50s-60s) - MOLINA negative x3 - EKG 12/31: sinus bradycardia (HR 56), short [place] interval, incomplete right bundle branch block (seen on prior EKG) - Cardiac cath last admission with Dr. Moreno: EF of 55%, non-obstructive coronary artery disease. Recommend aggressive medical management. - Pharmacologic stress test on 12/21/17: equivocal - Echocardiogram 12/19/17: shows EF of 70%, mild mitral and tricuspid regurgitation, mild pulmonary HTN, LVSF is normal - ASA 325 mg daily - Crestor 5 mg PO QHS - Cardiology consulted (Dr. Moreno)- rec EP consult prior to discharge Pt HTN was controlled with HCTZ 12.5 and Losartan 50mg Please refer to [employer] for complete records. Pt is medically stable for discharge home. Pt is to take the following medications as prescribed Metoprolol 25mg PO BID at 8am and 8pm Aspirin 325mg PO daily at 8am for 2 weeks Pt is to see Dr Moreno in office within one week, call [phone] Pt is also to see Dr Rogers in office within one week Take care and be well Discharge Exam - Head Exam Head Exam: ATRAUMATIC, NORMAL INSPECTION, NORMOCEPHALIC - Additional Findings Additional findings: - Constitutional Appears: Well, Non-toxic, No Acute Distress - Head Exam Head Exam: ATRAUMATIC, NORMAL INSPECTION, NORMOCEPHALIC - Eye Exam Eye Exam: EOMI, Normal appearance - ENT Exam ENT Exam: Mucous Membranes Moist, Normal Exam - Neck Exam Neck Exam: Normal Inspection - Respiratory Exam Respiratory Exam: Clear to Ausculation Bilateral, NORMAL BREATHING PATTERN - Cardiovascular Exam Cardiovascular Exam: REGULAR RHYTHM, +S1, +S2 - GI/Abdominal Exam GI & Abdominal Exam: Soft, Normal Bowel Sounds - Rectal Exam Rectal Exam: Deferred - Extremities Exam Extremities Exam: Normal Capillary Refill, Normal Inspection - Back Exam Back Exam: NORMAL INSPECTION - Neurological Exam Neurological Exam: Alert, Awake, CN II-XII Intact, Normal Gait, Oriented x3 - Psychiatric Exam Psychiatric exam: Normal Affect, Normal Mood - Skin Skin Exam: Dry, Intact, Normal Color, Warm Discharge Plan - Discharge Medications Prescriptions: Aspirin 325 mg PO DAILY #14 tab Metoprolol Tartrate [Lopressor] 25 mg PO Q12H #60 tab - Follow Up Plan Condition: IMPROVED Disposition: HOME/ ROUTINE Instructions: Chest Pain, Chest Pain (DC), Heart Disease in Women (DC), Catheter Ablation for the Heart, Cardiac Catheter Ablation, Cardiac Catheter Ablation (DC) Referrals: Delmy Rogers MD [Staff Provider] - Alexander Moreno MD [Staff Provider] -
== END 2018-01-06 11:33 | disposition home or self-care (01) | DRG 139 ==
LOC: C.ER 11:27 → C.9E 13:48 → C.6T 21:07 → C.9I 21:31 → C.6T 21:31 → OBSVTOIN 01-01 16:22 → C.5S 01-01 18:43
PROVIDERS: ADMIT Hospitalist; ATTEND Hospitalist
DX: I45.6 Pre-excitation syndrome (principal); I47.1 Supraventricular tachycardia; I45.10 Unspecified right bundle-branch block; I25.10 Atherosclerotic heart disease of native coronary artery without angina pectoris; I10 Essential (primary) hypertension; G43.909 Migraine, unspecified, not intractable, without status migrainosus; E78.00 Pure hypercholesterolemia, unspecified; I69.392 Facial weakness following cerebral infarction; Z95.5 Presence of coronary angioplasty implant and graft; Z79.82 Long term (current) use of aspirin; Z79.899 Other long term (current) drug therapy

== ENCOUNTER 2018-05-28 08:38 | Outpatient (CLI) | payer OTHER | END 2018-05-28 08:39 | disposition home or self-care (01) | LOC: C.LAB 08:38 | DX: D50.0 Iron deficiency anemia secondary to blood loss (chronic) (principal); E03.9 Hypothyroidism, unspecified; E55.9 Vitamin D deficiency, unspecified; E78.5 Hyperlipidemia, unspecified ==

== ENCOUNTER 2018-09-06 13:56 | Emergency (ER) | payer OTHER ==
[2018-09-06 13:56] VITALS: BMI 26.4
[2018-09-06 14:05] VITALS: O2SAT 100
--- NOTE | 2018-09-06 14:38 | C.PDOC ---
History Of Present Illness 58 year old female presents to the ED complaining of left anterior chest pain that began 4 days ago. Reports she was seen in the ED a few months ago and told she had a pre-heart attack. 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 Denies any nausea, vomiting, syncope, dizziness, abdominal pain, shortness of breath, palpitations, or any other symptoms. Time Seen by Provider: 09/06/18 14:12 Chief Complaint (Nursing): Chest Pain History Per: Patient History/Exam Limitations: no limitations Onset/Duration Of Symptoms: Days (4) Current Symptoms Are (Timing): Still Present Quality: "Pain" Associated Symptoms: denies: Nausea, Dyspnea, Diaphoresis, Syncope Past Medical History Reviewed: Historical Data, Nursing Documentation, Vital Signs Vital Signs: Last Vital Signs Temp 98.4 F 09/06/18 14:02 Pulse 70 09/06/18 14:02 Resp 20 09/06/18 14:02 BP 165/96 H 09/06/18 14:02 Pulse Ox 100 09/06/18 14:02 - Medical History PMH: Cardia Arrhythmia, HTN, Hypercholesterolemia, Migraine Denies: Chronic Kidney Disease Surgical History: No Surg Hx - [facility] Procedures FLUOROSCOPY OF LEFT HEART USING LOW OSMOLAR CONTRAST (12/19/17) FLUOROSCOPY OF MULT COR ART USING L OSM CONTRAST (12/19/17) MEASURE OF CARDIAC SAMPL & PRESSURE, L HEART, PERC APPROACH (12/19/17) CHURCH OF CARDIAC RHYTHM, SINGLE (12/19/17) Family History: States: No Known Family Hx - Social History Hx Tobacco Use: No Hx Alcohol Use: No Hx Substance Use: No - Immunization History Hx Tetanus Toxoid Vaccination: No Hx Influenza Vaccination: Yes (12/2017) Hx Pneumococcal Vaccination: No Review Of Systems Except As Marked, All Systems Reviewed And Found Negative. Constitutional: Negative for: Fever, Chills, Sweats Cardiovascular: Positive for: Chest Pain. Negative for: Palpitations, Edema Respiratory: Negative for: Cough, Shortness of Breath Gastrointestinal: Negative for: Nausea, Vomiting, Abdominal Pain, Diarrhea Neurological: Negative for: Dizziness, Other (syncope) Physical Exam - Physical Exam Appears: Non-toxic, No Acute Distress Skin: Warm, Dry, No Rash Head: Normacephalic Eye(s): bilateral: Normal Inspection Nose: Normal Oral Mucosa: Moist Neck: Supple Chest: Symmetrical, Tenderness (reproducible left chest wall tenderness ) Cardiovascular: Rhythm Regular Respiratory: Normal Breath Sounds, No Rales, No Rhonchi, No Wheezing Gastrointestinal/Abdominal: Soft, No Tenderness, No Guarding, No Rebound Extremity: No Pedal Edema Extremity: Bilateral: Atraumatic, Normal Color And Temperature, Normal ROM Neurological/Psych: Oriented x3, Normal Speech Gait: Steady ED Course And Treatment - Laboratory Results Result Diagrams: 09/06/18 14:42 09/06/18 14:42 Lab Interpretation: Normal ECG: Interpreted By Me ECG Rhythm: Sinus Rhythm ECG Interpretation: Normal Rate From EC O2 Sat by Pulse Oximetry: 100 (RA) Pulse Ox Interpretation: Normal - Radiology CXR: Interpreted by Me CXR Interpretation: Yes: No Acute Disease Progress Note: Treated with toradol. On re-evaluation lungs clear in no distress Reassessment Condition: Improved Medical Decision Making Medical Decision Making: Plan - EKG - Bloodwork - CXR - Toradol 30mg IVP - UA Disposition Counseled Patient/Family Regarding: Studies Performed, Diagnosis, Need For Followup, Rx Given - Disposition Disposition: HOME/ ROUTINE Disposition Time: 16:25 Condition: STABLE Additional Instructions: Follow up with your PMD for further evaluation Return to ED if any increase symptoms Prescriptions: Naproxen [Naprosyn] 1 tab PO BID PRN #25 tab PRN Reason: Pain Instructions: Costochondritis Forms: [facility] (Yoruba) Print Language: GUINEAN - POA Present On Arrival: None - Clinical Impression Clinical Impression: Chest wall pain - PA / TOWER ATTENDANT / Resident Statement MD/DO has reviewed & agrees with the documentation as recorded. - Scribe Statement The provider has reviewed the documentation as recorded by the Lauraibariane Sarkar All medical record entries made by the Lauraibariane were at my direction and personally dictated by me. I have reviewed the chart and agree that the record accurately reflects my personal performance of the history, physical exam, medical decision making, and the department course for this patient. I have also personally directed, reviewed, and agree with the discharge instructions and disposition.
--- NOTE | 2018-09-06 14:50 | RAD ---
Date of service: 09/06/2018 HISTORY: Shortness of breath COMPARISON: 12/31/2017 TECHNIQUE: Chest PA and lateral FINDINGS: LINES AND TUBES: None. LUNG AND PLEURA: The lungs are well inflated and clear. No pleural effusion or pneumothorax. HEART AND MEDIASTINUM: The heart is not enlarged. There are aortic atherosclerotic calcifications present. The hilar and mediastinal contours are within normal limits. SKELETAL STRUCTURES: The bony structures are within normal limits for the patient's age. VISUALIZED UPPER ABDOMEN: Normal. OTHER FINDINGS: None. IMPRESSION: No active pulmonary disease.
[2018-09-06 14:52] LABS: BASO % 0.4 % (0.0-2.0); EOS # 0.1 K/uL (0.0-0.7); HEMOGLOBIN 13.2 g/dL (11.0-16.0); LYMPH # 1.9 K/uL (1.0-4.3); LYMPH % 24.7 % (20.0-40.0); MEAN CORPUSCULAR HEMOGLOBIN 28.5 pg (27.0-31.0); MEAN CORPUSCULAR HGB CONC 33.8 g/dL (33.0-37.0); MEAN PLATELET VOLUME 8.1 fL (7.2-11.7); MONO # 0.7 K/uL (0.0-0.8); MONO % 8.9 % (0.0-10.0); RBC 4.63 Mil/uL (3.80-5.20); WHITE BLOOD COUNT 7.7 K/uL (4.8-10.8)
[2018-09-06 14:57] LABS: MEAN CELL VOLUME 84.4 fL (81.0-99.0)
[2018-09-06 15:02] LABS: ALB/GLOB RATIO 1.3 (1.0-2.1); ALBUMIN 4.5 g/dL (3.5-5.0); ALT/SGPT 22 U/L (9-52); AST/SGOT 31 U/L (14-36); BLOOD UREA NITROGEN 11 mg/dL (7-17); CALCIUM 8.9 mg/dl (8.6-10.4); GFR NON-AFRICAN AMERICAN > 60; LIPASE 168 U/L (23-300)
[2018-09-06 15:09] LABS: CK-MB 0.73 ng/mL (0.0-3.38)
[2018-09-06 16:08] LABS: URINE BILIRUBIN NEGATIVE (NEGATIVE); URINE BLOOD NEGATIVE (NEGATIVE); URINE CLARITY Clear (Clear); URINE COLOR Straw (YELLOW); URINE GLUCOSE (UA) NORMAL (Normal); URINE LEUKOCYTE ESTERASE NEG Leu/uL (Negative); URINE PROTEIN NEGATIVE (NEGATIVE); URINE UROBILINOGEN NORMAL mg/dL (0.2-1.0)
[2018-09-06 16:16] VITALS: BP 128/72; PULSE 52; RESP 15; TEMP 97.8
--- NOTE | 2018-09-08 10:40 | CARD ---
APPROVED REPORT Date of service: 09/06/2018 EKG Measurement Heart [id number] <Conclusion> Normal sinus rhythm Low voltage in limb leads Borderline EKG
== END 2018-09-06 16:34 | disposition home or self-care (01) ==
LOC: C.ER 13:56
DX: R07.89 Other chest pain (principal); I10 Essential (primary) hypertension; E78.00 Pure hypercholesterolemia, unspecified
CPT/HCPCS: 71046; 80053; 81001; 82553; 83690; 84484; 85025; 93005; 96374; 99285; J1885